=== PATIENT | male | born 1940 | race Caucasian/White ===

== ENCOUNTER 2017-11-15 09:50 | Emergency (ER) | payer OTHER ==
[2017-11-15] MEDS ORDERED: LIDOCAINE 1% 20 ML MDV ONE (10:38)
--- NOTE | 2017-11-15 11:21 | EDPHYS ---
Physician Documentation [facility] Name: Kanchan Fernandez Age: 77 yrs Sex: Male : 1940 Arrival Date: 11/15/2017 Time: 09:53 Bed 24 Private MD: ED Physician Darien Lamas HPI: 11/15 10:34 This 77 yrs old Male presents to ER via Ambulatory with complaints of Groin rn Pain. 10:34 the patient presents with a swollen area of the groin. Onset: The symptoms/episode rn began/occurred 2 day(s) ago. Possible cause(s): unknown. Severity of symptoms: At their worst the symptoms were mild, in the emergency department the symptoms are unchanged. The patient has not experienced similar symptoms in the past. Reports groin swelling, left groin, has had a bump there for years, but over last 2 days increased swelling and drainage, + foul smell, on blood thinners for afib, no fever. Has never had hernia at that location, + tender. . Historical: - Home Meds: 10:09 Carbidopa-Levodopa Oral [Active]; finasteride 5 mg Oral tab once daily [Active]; Flomax ph 0.4 mg Oral 1 cap nightly [Active]; Xarelto 20 mg Oral tab once daily [Active]; - PMHx: 10:09 Atrial Fib; restless legs; Kidney stones; ph - PSHx: 10:09 lithrotripsy; Brain surgery - acoustic neuroma; Ankle surgery; ph - Immunization history:: Adult Immunizations up to date. - Social history:: Smoking status: Patient/guardian denies using tobacco. - Family history:: not pertinent. - Hospitalizations: : No recent hospitalization is reported. ROS: 10:34 Constitutional: Negative for fever, chills, and weight loss, Cardiovascular: Negative rn for chest pain, palpitations, and edema, Respiratory: Negative for shortness of breath, cough, wheezing, and pleuritic chest pain, Abdomen/GI: Negative for abdominal pain, nausea, vomiting, diarrhea, and constipation, Back: Negative for injury and pain, MS/Extremity: Negative for injury and deformity, Skin: + swelling and pain to left groin Neuro: Negative for headache, weakness, numbness, tingling, and seizure. Exam: 10:34 Constitutional: This is a well developed, well nourished patient who is awake, alert, rn and in no acute distress. Abdomen/GI: Soft, non-tender, with normal bowel sounds. No distension or tympany. No guarding or rebound. No evidence of tenderness throughout. Male : Normal genitalia, left groin near but not involving left odilon-scrotum there is approx [id number] swelling and fluctuance, with clear drainage and foul smell Vital Signs: 10:09 BP 131 / 65; Pulse 53; Resp 18; Temp 98.7; Pulse Ox 97% on R/A; Weight 106.59 kg; ph Height 5 ft. 9 in. (175.26 cm); Pain 5/10; 10:09 Body Mass Index 34.70 (106.59 kg, 175.26 cm) ph Procedures: 11:18 I \T\ D: Incision and drainage was performed for an abscess of the left groin Prepped rn with Betadine, Anesthetized with 5 ml's 1% Lidocaine. Incised with #11 blade. Drained moderate amount purulent fluid. serosanguinous fluid. bloody fluid. Loculations removed. Abscess cavity explored. Packed with iodoform gauze, Dressing: sterile 4x4 gauze, the patient tolerated the procedure well. MDM: 10:17 Patient medically screened. rn 11:18 Differential diagnosis: abscess, cellulitis. Data reviewed: vital signs, nurses notes, rn and as a result, I will discharge patient. Counseling: I had a detailed discussion with the patient and/or guardian regarding: the historical points, exam findings, and any diagnostic results supporting the discharge/admit diagnosis, the need for outpatient follow up, to return to the emergency department if symptoms worsen or persist or if there are any questions or concerns that arise at home. ED course: Bedside u/s performed, single isolated fluid filled cavity, does not communicate with anything else. + surrounding cobblestoning. 11:18 Special discussion: I discussed with the patient/guardian in detail that at this point rn there is no indication for admission to the hospital. It is understood, however, that if the symptoms persist or worsen the patient needs to return immediately for re-evaluation. Based on the history and exam findings, there is no indication for further emergent testing or inpatient evaluation. I discussed with the patient/guardian the need to see the general surgeon for further evaluation of the symptoms. 11/15 10:30 Order name: Incision \T\ Drainage Setup; Complete Time: 10:45 rn Administered Medications: 10:46 Drug: Lidocaine (1 %) 1 vials {Note: administered by Dr. Lamas.} Volume: 20 ml; Route: aj1 Infiltration; 12:02 Drug: Clindamycin 300 mg Route: PO; aj1 12:05 Follow up: Response: No adverse reaction aj 12:03 Drug: Bactrim (160 mg-800 mg (DS) 1 tablet Route: PO; aj1 12:05 Follow up: Response: No adverse reaction aj Disposition: 11/15/17 11:20 Discharged to Home. Impression: Cutaneous abscess of groin. - Condition is Stable. - Discharge Instructions: Abscess, Incision and Drainage. - Prescriptions for Clindamycin HCl 300 mg Oral Capsule - take 1 capsule by ORAL route every 6 hours for 10 days; 40 capsule. Tylenol- Codeine #3 300-30 mg Oral Tablet - take 1 tablet by ORAL route every 6 hours As needed; 20 tablet. Bactrim DS 800- 160 mg Oral Tablet - take 1 tablet by ORAL route every 12 hours for 10 days; 20 tablet. - Medication Reconciliation Form, Thank You Letter, Antibiotic Education, Prescription Opioid Use form. - Follow up: Brennan Flores MD; When: 2 - 3 days; Reason: Wound Recheck, Recheck today's complaints, Re-evaluation by your physician. - Problem is new. - Symptoms have improved. Signatures: Mey Stinson RN RN aj1 Darien Lamas MD MD rn Hall, Patricia, RN RN ph Corrections: (The following items were deleted from the chart) 12:10 11:20 11/15/2017 11:20 Discharged to Home. Impression: Cutaneous abscess of groin. aj1 Condition is Stable. Forms are Medication Reconciliation Form, Thank You Letter, Antibiotic Education, Prescription Opioid Use. Follow up: Brennan Flores; When: 2 - 3 days; Reason: Wound Recheck, Recheck today's complaints, Re-evaluation by your physician. Problem is new. Symptoms have improved. rn
--- NOTE | 2017-11-15 11:21 | ER ---
Nurse's Notes [facility] Name: Kanchan Fernandez Age: 77 yrs Sex: Male : 1940 Arrival Date: 11/15/2017 Time: 09:53 Bed 24 Private MD: Diagnosis: Cutaneous abscess of groin Presentation: 11/15 10:10 Presenting complaint: Presenting complaint: Patient states: " I've had a bump on my ph groin for a while now and it's never bothered but this weekend it got inflamed and started draining a clear, and reddish liquid." Denies N/V/D or fever, reports pain in L groin. Transition of care: patient was not received from another setting of care. Onset of symptoms was November 15, 2017. Initial Sepsis Screen: Does the patient meet any 2 criteria? No. Patient's initial sepsis screen is negative. Does the patient have a suspected source of infection? No. Patient's initial sepsis screen is negative. Care prior to arrival: None. 10:10 Method Of Arrival: Ambulatory ph 10:10 Acuity: BALTAZAR 4 ph Historical: - Home Meds: 10:09 Carbidopa-Levodopa Oral [Active]; finasteride 5 mg Oral tab once daily [Active]; Flomax ph 0.4 mg Oral 1 cap nightly [Active]; Xarelto 20 mg Oral tab once daily [Active]; - PMHx: 10:09 Atrial Fib; restless legs; Kidney stones; ph - PSHx: 10:09 lithrotripsy; Brain surgery - acoustic neuroma; Ankle surgery; ph - Immunization history:: Adult Immunizations up to date. - Social history:: Smoking status: Patient/guardian denies using tobacco. - Family history:: not pertinent. - Hospitalizations: : No recent hospitalization is reported. Screenin:29 Abuse screen: Denies threats or abuse. Denies injuries from another. Nutritional aj1 screening: No deficits noted. Tuberculosis screening: No symptoms or risk factors identified. 12:04 Fall Risk None identified. aj1 Assessment: 10:29 General: Appears in no apparent distress. uncomfortable, Behavior is calm, cooperative, aj1 appropriate for age. Pain: Complains of pain in groin Pain does not radiate. Neuro: Level of Consciousness is awake, alert, obeys commands, Oriented to person, place, time, situation, Speech is normal, Facial symmetry appears normal. Cardiovascular: Patient's skin is warm and dry. Respiratory: Airway is patent Respiratory effort is even, unlabored, Respiratory pattern is regular, symmetrical. GI: No signs and/or symptoms were reported involving the gastrointestinal system. : No signs and/or symptoms were reported regarding the genitourinary system. EENT: No signs and/or symptoms were reported regarding the EENT system. Derm: Abscess located on groin has purulent drainage, has foul odor, is raised. Musculoskeletal: No signs and/or symptoms reported regarding the musculoskeletal system. Circulation, motion, and sensation intact. 10:31 Reassessment: Dr. Lamas at bedside performing ultrasound of abscess. aj1 11:30 Reassessment: Patient appears in no apparent distress at this time. No changes from aj1 previously documented assessment. Patient and/or family updated on plan of care and expected duration. Pain level reassessed. Patient is alert, oriented x 3, equal unlabored respirations, skin warm/dry/pink. Vital Signs: 10:09 BP 131 / 65; Pulse 53; Resp 18; Temp 98.7; Pulse Ox 97% on R/A; Weight 106.59 kg; ph Height 5 ft. 9 in. (175.26 cm); Pain 5/10; 10:09 Body Mass Index 34.70 (106.59 kg, 175.26 cm) ph ED Course: 09:53 Patient arrived in ED. sb2 10:12 Triage completed. ph 10:17 Darien Lamas MD is Attending Physician. rn 10:29 Mey Stinson RN is Primary Nurse. aj1 10:29 Patient has correct armband on for positive identification. aj1 10:29 No provider procedures requiring assistance completed. aj1 10:30 Arm band placed on. aj1 11:15 Assist provider with I \\T\\ D: of an abscess on left groin Set up I\\T\\D tray. Performed by aj 1 Darien Lamas MD Wound packed. Dressing with 4X4s, Patient tolerated well. 11:20 Brennan Flores MD is Referral Physician. rn 12:04 Patient did not have IV access during this emergency room visit. aj1 Administered Medications: 10:46 Drug: Lidocaine (1 %) 1 vials {Note: administered by Dr. Lamas.} Volume: 20 ml; Route: aj1 Infiltration; 12:02 Drug: Clindamycin 300 mg Route: PO; aj1 12:05 Follow up: Response: No adverse reaction aj1 12:03 Drug: Bactrim (160 mg-800 mg (DS) 1 tablet Route: PO; aj1 12:05 Follow up: Response: No adverse reaction aj1 Outcome: 11:20 Discharge ordered by . rn 12:04 Discharged to home ambulatory. aj1 12:04 Condition: good 12:04 Discharge instructions given to patient, Instructed on discharge instructions, follow up and referral plans. no drinking with medication, no driving heavy equipment, medication usage, wound care, Demonstrated understanding of instructions, follow-up care, medications, wound care, Prescriptions given X 3. 12:10 Patient left the ED. aj1 Signatures: Mey Stinson RN RN aj1 Darien Lamas MD MD rn Hall, Patricia, RN RN ph Billeau, Sheri sb2
[2017-11-15] MEDS ORDERED: SMZ./TMP. 800/160 MG TABLET ONE (11:45)
[2017-11-15] MEDS ORDERED: CLINDAMYCIN HCL 150 MG CAP ONE (11:45)
== END 2017-11-15 12:10 | disposition home or self-care (01) ==
LOC: ER 09:50
PROC: 0J9C0ZZ Drainage of Pelvic Region Subcutaneous Tissue and Fascia, Open Approach (ICD-10-PCS; principal; 2017-11-15)
DX: L02.214 Cutaneous abscess of groin (principal); I48.91 Unspecified atrial fibrillation; Z79.01 Long term (current) use of anticoagulants
CPT/HCPCS: 99283

== ENCOUNTER 2017-11-21 08:08 | Day surgery (SDC) | payer OTHER ==
[2017-11-18 12:28] LABS: Absolute Lymphocytes (CBC) 14.8 K/uL (0.7-4.9); Absolute Monocytes 0.6 K/uL (0.1-1.3); Absolute Neutrophil 3.7 K/uL (1.8-8.0); Basophils % 0.2 % (0-1.3); Eosinophils % 0.5 % (0-4.4); Hematocrit 43.8 % (39.6-49.0); Lymphocytes % 76.6 % (15.3-44.8); MCH 30.2 pg (27.0-35.0); MCV 92.1 fL (80-100); MPV 9.8 fL (7.6-11.3); Monocytes % 3.3 % (3.3-12.3); RBC Red Blood Cell Count 4.75 M/uL (4.33-5.43)
[2017-11-18 12:37] LABS: Potassium 4.7 mEq/L (3.6-5.0)
[2017-11-18 13:26] LABS: Blood Morphology Comment NOT SEEN (NOT SEEN); Platelet Estimate DECR
[2017-11-18 13:28] LABS: Smudge Cells 27
--- NOTE | 2017-11-18 13:41 | RAD REPORT ---
EXAM DESCRIPTION: RAD - Chest Pa And Lat (2 Views) - 11/18/2017 1:35 pm CLINICAL HISTORY: Abscess COMPARISON: None. FINDINGS: The lungs are clear. The heart is mildly enlarged. No displaced fractures. IMPRESSION: Mild cardiomegaly.
--- NOTE | 2017-11-18 15:38 | EKG ---
Test Date: 2017-11-18 Test Time: 12:20:50 Digital Sales Assistant: DARBY MEASUREMENT RESULTS: Intervals: Rate: 43 TN: QRSD: 94 QT: 476 QTc: 402 Horace: P: TN: QRS: 84 T: 94 INTERPRETIVE STATEMENTS: Atrial fibrillation with slow ventricular response ST abnormality, possible digitalis effect Abnormal ECG Compared to ECG 05/24/2017 11:03:13 no significant change from previous ECG Electronically Signed On 11-18-17 15:37:27 CDT by Juan Stallworth
[2017-11-21] MEDS ORDERED: Ringers Lactate 1,000 ML IV ONE (08:37)
[2017-11-21] MEDS ORDERED: CEFAZOLIN/SWI 1gm 1 GM/10 ML SYR ONE (08:38)
[2017-11-21] MEDS ORDERED: BUPIVACAINE 0.5% PF 10 ML VIAL ONE (09:20)
[2017-11-21] MEDS ORDERED: LIDOCAINE 2% MPF 5 ML VIAL ONE (09:23)
[2017-11-21] MEDS ORDERED: PROPOFOL 200 MG/20 ML VIAL IV ONE (09:24)
[2017-11-21] MEDS ORDERED: FENTANYL CITR 100 MCG/2 ML ONE (09:24)
[2017-11-21] MEDS ORDERED: GLYCOPYRROLATE 0.2 MG/ML SYR ONE ×2 (09:44→10:05)
--- NOTE | 2017-11-21 10:06 | P.BOP ---
Preoperative diagnosis: left inguinal complex abscess Postoperative diagnosis: same Primary procedure: Incision and drainage of left inguinal complex abscess [id number] Estimated blood loss: <10cc Specimen: devitalized tissue and culture Findings: left inguinal/groin complex abscess Anesthesia: General Complications: None Transferred to: Recovery Room Condition: Good
[2017-11-21] MEDS ORDERED: CODEINE 30MG/APAP 300MG TAB ONE (11:21)
--- NOTE | 2017-11-21 21:13 | OP ---
Date of Procedure: 11/21/2017 Surgeon: Brennan Flores MD Preoperative Diagnosis: Left inguinal complex abscess. Postoperative Diagnosis: Left inguinal complex abscess. Procedure: Incision and drainage of complex abscess of left inguinal area, 5 x 3 x 3 cm. Estimated Blood Loss: Less than 10 cc. Specimen: Devitalized tissue and culture. Findings: Left inguinal groin complex abscess. Anesthesia: General plus local. Indications: This is a case of a 77-year-old patient with above diagnosis with drainage coming from a complex abscess in the left groin inguinal region. The benefits, alternatives, and risk of incisio n and drainage with debridement fully explained to the patient, which include, but are not limited to infection, bleeding, damage to adjacent structures, anesthesia complication, recurrence, NJ, and grady n . He also understands this may not relieve any symptoms. He might need more than one surgica l intervention. He will require wound care. He signed a consent. Description Of Procedure: The patient was brought to the operating room, placed in supine position. Anesthesia was done without complication. Left groin area was prepped and draped in a sterile fashi on. Local anesthesia was applied followed by sharp incision to include the abscess and necrotic tiss ue present. This led into an abscess cavity above 5 x 3 x 3 cm. Cultures were obtained. The area w as profusely irrigated. Hemostasis was obtained. We did debridement of the devitalized tissue subcu taneously and area was irrigated and packed with 1 inch iodoform. Sponge count and instrument counts were correct. The patient tolerated the procedure well. The patient was sent to recovery in stable condi tion. BONY/LUCIEN Voice ID: [id number] Report ID: [id number]
--- NOTE | 2017-11-21 21:13 | DS ---
Date of Discharge: 11/21/2017 Diagnosis: Complex left inguinal abscess. Procedure: Incision and drainage with debridement of left complex abscess. Disposition: Home. Activity: As tolerated. No heavy lifting. Followup: Follow up in my office in 1 week. Call for appointment [phone]. Keep the area dry for 2 4 hours and then wet-to-dry dressing. May use Iodoform or may use a gauze with saline daily. The marisol avery was offered [facility], although he think his family can do it. Continue with antibiot ics from home. BONY/LUCIEN Voice ID: [id number] Report ID: [id number]
== END 2017-11-21 12:20 | disposition home health service (06) ==
LOC: OR 08:08
PROVIDERS: ATTEND Surgery
PROC: 0J9C0ZZ Drainage of Pelvic Region Subcutaneous Tissue and Fascia, Open Approach (ICD-10-PCS; principal; 2017-11-21 09:30)
DX: L02.214 Cutaneous abscess of groin (principal); G47.33 Obstructive sleep apnea (adult) (pediatric); Z80.6 Family history of leukemia; Z80.0 Family history of malignant neoplasm of digestive organs; Z82.49 Family history of ischemic heart disease and other diseases of the circulatory system
CPT/HCPCS: 10061; 36415; 71046; 80048; 85025; 87070; 87075; 87205; 88304; 93005; J0690; J3010; 88302

== ENCOUNTER 2018-12-09 09:56 | Emergency (ER) | payer OTHER ==
--- NOTE | 2018-12-09 10:17 | ER ---
Nurse's Notes [facility] Name: Kanchan Fernandez Age: 78 yrs Sex: Male : 1940 Arrival Date: 12/09/2018 Time: 10:00 Bed 15 Private MD: Vlad Redman Diagnosis: Cellulitis of left upper limb Presentation: 12/09 10:08 Presenting complaint: Patient states: redness and rash to L AC area that began months ss ago, but became irritated and reddened over the last 5-6 days after applying tea tree oil. Denies fever. Transition of care: patient was not received from another setting of care. Onset: The symptoms/episode began/occurred 3 month(s) ago. Anaphylaxis evaluation, no signs or symptoms of anaphylaxis were noted. Onset of symptoms is unknown. Risk Assessment: Do you want to hurt yourself or someone else? Patient reports no desire to harm self or others. Initial Sepsis Screen: Does the patient meet any 2 criteria? No. Patient's initial sepsis screen is negative. Does the patient have a suspected source of infection? Yes: Skin breakdown/wound. Care prior to arrival: None. 10:08 Method Of Arrival: Ambulatory ss 10:08 Acuity: BALTAZAR 5 ss Historical: - Allergies: 10:11 No Known Allergies; ss - Home Meds: 10:11 Carbidopa-Levodopa Oral [Active]; finasteride 5 mg Oral tab once daily [Active]; Flomax ss 0.4 mg Oral 1 cap nightly [Active]; Xarelto 20 mg Oral tab once daily [Active]; - PMHx: 10:11 Atrial Fib; Kidney stones; restless legs; ss - PSHx: 10:11 lithrotripsy; Brain surgery - acoustic neuroma; Ankle surgery; ss - Immunization history:: Adult Immunizations up to date. - Social history:: Smoking status: Patient/guardian denies using tobacco. - Ebola Screening: : Patient denies exposure to infectious person Patient denies travel to an Ebola-affected area in the 21 days before illness onset. Screenin:12 Abuse screen: Denies threats or abuse. Denies injuries from another. Nutritional ss screening: No deficits noted. Tuberculosis screening: Never had TB. Fall Risk None identified. Assessment: 10:12 General: Appears in no apparent distress. comfortable, Behavior is calm, cooperative, ss Denies fever, feeling ill, fatigue, chills. Pain: Denies pain. Neuro: Level of Consciousness is awake, alert, obeys commands. Cardiovascular: Pulses are palpable in right radial artery and left radial artery. Respiratory: Airway is patent Respiratory effort is even, unlabored, Respiratory pattern is regular, symmetrical. GI: Patient currently denies abdominal pain, diarrhea, nausea, vomiting. EENT: Nares are clear. Derm: Skin is pink, warm \T\ dry. normal. Derm: Rash noted that is itchy, red, vesicular, on left antecubital area. Musculoskeletal: Circulation, motion, and sensation intact. Range of motion: intact in all extremities, Swelling absent. Vital Signs: 10:11 BP 139 / 73; Pulse 63; Resp 17; Temp 98.0(TE); Pulse Ox 98% on R/A; Weight 111.13 kg; ss Height 5 ft. 9 in. (175.26 cm); Pain 0/10; 10:11 Body Mass Index 36.18 (111.13 kg, 175.26 cm) ss ED Course: 10:00 Patient arrived in ED. dp 10:01 Vlad Redman MD is Private Physician. dp 10:03 [facility] Con[facility]. kb 10:03 Darien Lamas MD is Attending Physician. kb 10:08 Carmen Blanco, REYNA is Primary Nurse. ss 10:10 Triage completed. ss 10:11 Arm band placed on right wrist. ss 10:12 Patient has correct armband on for positive identification. Bed in low position. Call ss light in reach. 10:14 No provider procedures requiring assistance completed. Patient did not have IV access ss during this emergency room visit. Administered Medications: 10:18 Drug: Bactrim (160 mg-800 mg (DS) 1 tablet Route: PO; ss 10:26 Follow up: Response: No adverse reaction; Medication administered at discharge. ss 10:19 Drug: KeFLEX 500 mg Route: PO; ss 10:26 Follow up: Response: No adverse reaction; Medication administered at discharge. ss Outcome: 10:16 Discharge ordered by . kb 10:26 Discharged to home ambulatory. ss 10:26 Condition: good 10:26 Discharge instructions given to patient, Instructed on discharge instructions, follow up and referral plans. medication usage, Demonstrated understanding of instructions, follow-up care, medications, wound care, Prescriptions given X 2. 10:27 Patient left the ED. Signatures: Orly Conner FNP-C FNP-Carmen Horton, REYNA RN ss Thomas Ag
--- NOTE | 2018-12-09 10:17 | EDPHYS ---
Physician Documentation [facility] Name: Kanchan Fernandez Age: 78 yrs Sex: Male : 1940 Arrival Date: 12/09/2018 Time: 10:00 Bed 15 Private MD: Vlad Redman ED Physician Darien Lamas HPI: 12/09 10:12 This 78 yrs old Male presents to ER via Ambulatory with complaints of Rash, kb Itching. 10:13 The patient presents with cellulitis of the left arm. Description: draining, kb erythematous, hot, swollen. Onset: The symptoms/episode began/occurred 6 day(s) ago. Possible cause(s): unknown. Associated signs and symptoms: Pertinent positives: erythema, swelling, Pertinent negatives: discharge, drainage, foreign body sensation, fever, headache, nausea, shortness of breath, vomiting. Modifying factors: the symptoms are alleviated by nothing, the symptoms are aggravated by nothing. Severity of symptoms: At their worst the symptoms were moderate, in the emergency department the symptoms are unchanged. The patient has not experienced similar symptoms in the past. The patient has not recently seen a physician. Historical: - Allergies: 10:11 No Known Allergies; ss - Home Meds: 10:11 Carbidopa-Levodopa Oral [Active]; finasteride 5 mg Oral tab once daily [Active]; Flomax ss 0.4 mg Oral 1 cap nightly [Active]; Xarelto 20 mg Oral tab once daily [Active]; - PMHx: 10:11 Atrial Fib; Kidney stones; restless legs; ss - PSHx: 10:11 lithrotripsy; Brain surgery - acoustic neuroma; Ankle surgery; ss - Immunization history:: Adult Immunizations up to date. - Social history:: Smoking status: Patient/guardian denies using tobacco. - Ebola Screening: : Patient denies exposure to infectious person Patient denies travel to an Ebola-affected area in the 21 days before illness onset. ROS: 10:12 Constitutional: Negative for fever, chills, and weight loss, Cardiovascular: Negative kb for chest pain, palpitations, and edema, Respiratory: Negative for shortness of breath, cough, wheezing, and pleuritic chest pain, Abdomen/GI: Negative for abdominal pain, nausea, vomiting, diarrhea, and constipation, MS/Extremity: Negative for injury and deformity, Neuro: Negative for headache, weakness, numbness, tingling, and seizure. 10:12 Skin: Positive for cellulitis, erythema, of the left arm. Exam: 10:11 Constitutional: This is a well developed, well nourished patient who is awake, alert, kb and in no acute distress. Head/Face: Normocephalic, atraumatic. Chest/axilla: Normal chest wall appearance and motion. Nontender with no deformity. No lesions are appreciated. Cardiovascular: Regular rate and rhythm with a normal S1 and S2. No gallops, murmurs, or rubs. Normal PMI, no JVD. No pulse deficits. Respiratory: Lungs have equal breath sounds bilaterally, clear to auscultation and percussion. No rales, rhonchi or wheezes noted. No increased work of breathing, no retractions or nasal flaring. Abdomen/GI: Soft, non-tender, with normal bowel sounds. No distension or tympany. No guarding or rebound. No evidence of tenderness throughout. MS/ Extremity: Pulses equal, no cyanosis. Neurovascular intact. Full, normal range of motion. Neuro: Awake and alert, GCS 15, oriented to person, place, time, and situation. Cranial nerves II-XII grossly intact. Motor strength 5/5 in all extremities. Sensory grossly intact. Cerebellar exam normal. Normal gait. 10:11 Skin: cellulitis, that is moderate, on the left arm. Vital Signs: 10:11 BP 139 / 73; Pulse 63; Resp 17; Temp 98.0(TE); Pulse Ox 98% on R/A; Weight 111.13 kg; ss Height 5 ft. 9 in. (175.26 cm); Pain 0/10; 10:11 Body Mass Index 36.18 (111.13 kg, 175.26 cm) ss MDM: 10:03 Patient medically screened. kb 10:11 Data reviewed: vital signs, nurses notes. Data interpreted: Pulse oximetry: on room air kb is 98 %. Interpretation: normal. Counseling: I had a detailed discussion with the patient and/or guardian regarding: the historical points, exam findings, and any diagnostic results supporting the discharge/admit diagnosis, the need for outpatient follow up, a family practitioner, to return to the emergency department if symptoms worsen or persist or if there are any questions or concerns that arise at home. Administered Medications: 10:18 Drug: Bactrim (160 mg-800 mg (DS) 1 tablet Route: PO; ss 10:26 Follow up: Response: No adverse reaction; Medication administered at discharge. ss 10:19 Drug: KeFLEX 500 mg Route: PO; ss 10:26 Follow up: Response: No adverse reaction; Medication administered at discharge. ss Disposition: 11:41 Co-signature as Attending Physician, Darien Lamas MD. rn Disposition: 12/09/18 10:16 Discharged to Home. Impression: Cellulitis of left upper limb. - Condition is Stable. - Discharge Instructions: Cellulitis, Adult, [id number]. - Prescriptions for Keflex 500 mg Oral Capsule - take 1 capsule by ORAL route every 8 hours for 7 days; 21 capsule. Bactrim DS 800- 160 mg Oral Tablet - take 1 tablet by ORAL route every 12 hours for 7 days; 14 tablet. - Medication Reconciliation Form, Thank You Letter, Antibiotic Education, Prescription Opioid Use form. - Follow up: Emergency Department; When: As needed; Reason: Worsening of condition. Follow up: Private Physician; When: 2 - 3 days; Reason: Recheck today's complaints, Continuance of care, Re-evaluation by your physician. Signatures: Orly Conner, OVEN ATTENDANT-C OVEN ATTENDANT-Ckb Darien Lamas MD MD rn [facility] RN Corrections: (The following items were deleted from the chart) 10:27 10:16 12/09/2018 10:16 Discharged to Home. Impression: Cellulitis of left upper limb. ss Condition is Stable. Forms are Medication Reconciliation Form, Thank You Letter, Antibiotic Education, Prescription Opioid Use. Follow up: Emergency Department; When: As needed; Reason: Worsening of condition. Follow up: Private Physician; When: 2 - 3 days; Reason: Recheck today's complaints, Continuance of care, Re-evaluation by your physician. kb
[2018-12-09] MEDS ORDERED: SMZ./TMP. 800/160 MG TABLET ONE (10:31)
[2018-12-09] MEDS ORDERED: CEPHALEXIN 250 MG CAP ONE (10:31)
== END 2018-12-09 10:27 | disposition home or self-care (01) ==
LOC: ER 09:56
DX: L03.114 Cellulitis of left upper limb (principal); I48.91 Unspecified atrial fibrillation
CPT/HCPCS: 99283

== ENCOUNTER 2019-08-28 08:40 | Inpatient (IN) | payer OTHER ==
--- OUTSIDE RECORDS SUMMARY | 2019-08-28 08:55 | XMS REPORT | Summary of Care ---
:1940 Author Organization [facility] [place] [address] Care Team Providers Name Role Phone Unavailable Primary Care Provider Unavailable Reason for Visit Reason Comments Elevated PSA Encounter Details Date Type Department Care Team Description 08/10/2019 Office Visit [facility] Ayush Sung MD Elevated PSA Medicine Urology [address] [place] [address] [address]LO[address], [address], [place] [address] [place] [address] Allergies No Known Allergiesdocumented as of this encounter (statuses as of 08/13/2019) Medications Medication Sig Dispensed Refills Start Date End Date Status finasteride (PROSCAR) Take 5 mg by 0 Active 5 MG tablet mouth daily. Rivaroxaban (XARELTO) Take by mouth. 0 Active 20 MG TABS Tamsulosin HCl 0.4 MG TAKE ONE CAPSULE 30 Cap 1 03/09/2017 Active CAPS BY MOUTH AT BEDTIME amoxicillin-clavulana Take 1 Tab by 20 Tab 0 08/13/2019 08/23/2019 Active te (AUGMENTIN) mouth two times 875-125 MG per tablet daily for 10 days. documented as of this encounter (statuses as of 08/13/2019) Active Problems Problem Noted Date Elevated prostate specific antigen (PSA) 07/10/2012 documented as of this encounter (statuses as of 08/13/2019) Social History Tobacco Use Types Packs/Day Years Used Date Never Smoker Smokeless Tobacco: Never Used Alcohol Use Drinks/Week oz/Week Comments No Sex Assigned at Date Recorded Not on file Job Start Date Occupation Industry Not on file Not on file Not on file Travel History Travel Start Travel End No recent travel history available. documented as of this encounter Last Filed Vital Signs Not on filedocumented in this encounter Progress Notes Kathie Ramirez CMA - 08/10/2019 8:31 AM LUMBER TRIPPER HPI Review of Systems Constitutional: Negative. HENT: Positive for congestion and hearing loss. Eyes: Negative. Respiratory: Positive for shortness of breath, wheezing and stridor. Cardiovascular: Positive for leg swelling. Gastrointestinal: Negative. Endocrine: Negative. Genitourinary: Positive for frequency and urgency. Musculoskeletal: Positive for neck pain and neck stiffness. Skin: Negative. Allergic/Immunologic: Negative. Neurological: Positive for numbness. Hematological: Bruises/bleeds easily. Psychiatric/Behavioral: Negative. 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 Nocturia x 0 - 1. Some urgency. PMH: Asbestosis Atrial fibrillation - on Xarelto H/O acoustic neuroma ALL: none MEDS: Epic SURG: Acoustic neuroma Ureteroscopy - for stones Vasectomy Rt ankle FH: No IA/BR/OV cancers HABITS: No tobacco, mild ETOH ( 6 - 7 drinks / week ) ROS: Active, +/- SOB, denies chest pain EXAM: 5'9", 260 lbs WD Some bronchospasm Rectal - > 100 G prostate, feels like BPH IMP: H/O focal GL 3+3 PRCA Very large BPH Elevated PSA P: Labs, decide Addendum: PSA - 12.4, 11% free, PHI - 59 ( > 55% risk ) Cr - 0.76 T - 262 C&S - Enterococci final sensitivities - pending P: Rx Augmentin ( sent Rx through [facility] ) FU C&S & PHI in 8 weeks Called Left message on home # for him to order picker his Rx and FU with us documented in this encounter Plan of Treatment Name Type Priority Associated Diagnoses Date/Time CULTURE, Microbiology Routine Elevated prostate 08/10/2019 8:41 AM URINE/SENSITIVITY specific antigen (PSA) [employer] ON ALL Health Maintenance Due Date Last Done Comments TETANUS SHOT (ADULT) 01/28/1955 FALL SCREEN 01/28/2005 PNEUMOVAX >=65 (PPSV23) 01/28/2005 PREVNAR >=65 (PCV13) 01/28/2005 MEDICARE AWV (Initial) 12/18/2013 FLU VACCINE > 6 MONTHS 02/01/2019 documented as of this encounter Procedures Procedure Name Priority Date/Time Associated Comments Diagnosis BUN Routine 08/10/2019 8:41 AM Elevated prostate Results for this LUM[facility] TRIPPER specific antigen procedure are in (PSA) the results section. CREATININE SERUM Routine 08/10/2019 8:41 AM Elevated prostate Results for this [employer]UM[employer] TRIPPER specific antigen procedure are in (PSA) the results section. POCT URINALYSIS Routine 08/10/2019 Elevated prostate Results for this DIPSTICK specific antigen procedure are in (PSA) the results section. documented in this encounter Results CREATININE SERUM (08/10/2019 8:41 AM LUMBER TRIPPER) CREATININE 0.76 (L) 0.80 - 1.40 CPL MG/DL EGFR AA 101 >60 ML/MIN/1.73 CPL EGFR 87 >60 ML/MIN/1.73 CPL Comment: Unless Otherwise Indicated, All Testing Performed At: [facility], [address] [place] [address] Shot Tube Machine Tender: Mannie Freire M.D. CLIA Number [id number] [place]. [id number] Specimen Blood Performing Organization Address City/State/Zipcode Phone Number [address] [address] BUN (08/10/2019 8:41 AM LUMBER TRIPPER) BLOOD UREA 13 8 - 23 MG/DL CPL NITROGEN Comment: Unless Otherwise Indicated, All Testing Performed At: [facility], [address] [place] [id number] Shot Tube Machine Tender: Mannie Freire M.D. CLIA Number [id number] [facility] [place]. [id number] Specimen Blood Performing Organization Address [facility]/Zipcode Phone Number [facility] [address] [place] [address] TESTOSTERONE-TOTAL(URO DEPT) (08/10/2019) Pathologist [facility] Emergency Department TESTOSTERONE LEVEL 262 (A)Comment: 300 - 1,000 [facility] Test was repeated ng/dl to confirm abnormal value. LABORATORY FOR MALE [facility] REPRODUCTIVE RESEARCH & TESTING CLIA# [id number] [facility] DIRECTOR:TOPHER OCHOA,PH.D.,[facility] Specimen Serum Performing Organization Address [facility]/Zipcode Phone Number [facility] [address] [place], [place] [address] [phone] PHI PANEL (URO DEPT) (08/10/2019) Pathologist [facility] Emergency Department PSA 12.475 (A)Comment: 0 - 4.0 ng/mL CPL Test was repeated to confirm abnormal value. PSA, FREE 1.430 ng/mL [facility] FPSA/PSA RATIO 11 >25 % [facility] P2PSA 24 pg/mL [facility] PHI 59.1Comment: 55-97.8 [facility] PHI Score has 50.1% likelihood of prostate cancer Specimen Serum Performing Organization Address [facility] Corporation[facility] Phone Number [facility] [address] [place] [address], [facility] [phone] POCT URINALYSIS DIPSTICK (08/10/2019) Pathologist [facility] Emergency Department COLOR UA Yellow YELLOW/STRAW CLARITY UA Clear CLEAR GLUCOSE UA Negative NEGATIVE BILIRUBIN UA Negative NEGATIVE KETONES UA Negative NEGATIVE SPECIFIC GRAVITY UA 1.010 (A) 1.005 - 1.035 BLOOD UA Hemolyzed Trace NEGATIVE PH UA 6.5 5 - 9 PROTEIN UA Negative NEGATIVE UROBILINOGEN UA 0.02 E.U/DL NORMAL MG/DL LEUKOCYTE ESTERASE UA Trace NEGATIVE NITRITE UA Negative NEGATIVE REDUCING SUBSTANCES 0 NEGATIVE URINE Specimen documented in this encounter Visit Diagnoses Diagnosis Elevated prostate specific antigen (PSA) - Primary documented in this encounter Insurance Payer Benefit Plan / Subscriber ID Effective Dates Phone Address Type Group [employer] MEDICARE PLAN PPO xxxxxxxx 2013-Present [address] Medicare - [employer] [place] [id number] documented as of this encounter
[2019-08-28 09:41] LABS: Protime INR 1.58
[2019-08-28 09:48] LABS: Absolute Lymphocytes (CBC) 19.9 K/uL (0.7-4.9); Basophils % 0.2 % (0-1.3); Hematocrit 40.3 % (39.6-49.0); Lymphocytes % 78.1 % (15.3-44.8); MPV 9.4 fL (7.6-11.3); RBC Red Blood Cell Count 4.29 M/uL (4.33-5.43)
[2019-08-28 09:59] LABS: BUN Blood Urea Nitrogen 12 mg/dL (7-18); Bicarbonate 28 mmol/L (21-32); Creatine Phosphokinase 132 U/L (39-308); Glucose Level 124 mg/dL (74-106); Potassium 4.2 mmol/L (3.5-5.1); Sodium Level 140 mmol/L (136-145)
[2019-08-28] MEDS ORDERED: CLINDAMYCIN 900MG/D5W 900 MG/50 ML IVPB IV ONE (10:35)
--- NOTE | 2019-08-28 10:38 | RAD REPORT ---
EXAM DESCRIPTION: US - Extremity Venous [facility] [employer] - 08/28/2019 10:06 am CLINICAL HISTORY: Pain;Swelling COMPARISON: None. TECHNIQUE: Real-time sonographic evaluation of the right lower extremity deep venous systems was per formed. FINDINGS: Normal compressibility, flow augmentation, phasic flow and spontaneous flow are identified in the right lower extremity common femoral, superficial femoral, popliteal and posterior tibial vei ns. No intraluminal filling defects seen. IMPRESSION: No DVT in the right lower extremity.
[2019-08-28 11:13] LABS: Platelet Estimate DECR
[2019-08-28 11:14] LABS: Blood Morphology Comment NOT SEEN (NOT SEEN); Platelets, Giant FEW PRESENT
--- NOTE | 2019-08-28 11:53 | P.HP ---
Certification for Inpatient Patient admitted to: Inpatient With expected LOS: >2 Midnights Practitioner: I am a practitioner with admitting privileges, knowledge of patient current condition, hospital course, and medical plan of care. Services: Services provided to patient in accordance with Admission requirements found in Title 42 Section 412.3 of the Code of Federal Regulations Patient History Date of Service: 08/29/19 Reason for admission: Swollen and erythematous right lower extremity History of Present Illness: 79-year-old gentleman with a history of atrial fibrillation on Xarelto anticoagulation present to the ED with a complaint of painful swelling and erythema of the entire right lower extremity of about 1 week duration. Patient stated he fell and sustained an abrasive wound to the carroll of the right lower extremity. He denied any fever or chills. In the ED, patient was afebrile, WBC count is 25,000. Venous Doppler of the lower extremities negative for DVT. Patient has redness and swelling of the right leg as well as ecchymosis spreading from the knee up to the groin on the same leg. Patient is admitted for cellulitis with sepsis. Allergies No Known Allergies Allergy (Verified 11/21/17 09:13) Home Medications: Finasteride [Proscar*] 5 mg PO DAILY 12/20/15 Rivaroxaban [Xarelto] 20 mg PO DAILY 12/20/15 Tamsulosin HCl [Flomax] 0.4 mg PO DAILY 12/20/15 Gabapentin 1 tab PO BEDTIME 08/28/19 - Past Medical/Surgical History Diabetic: No -: BPH -: Atrial Fibrillation -: Asbestosis -: Ankle Surgery -: Brain Surgery- Acoustic Neuroma -: Acoustic Neuroma - Family History Brother -: Heart disease Dad -: Blood disorders Notes: leukemia Mom -: Heart disease Notes: Cardiac arrythmias, PT unsure of an acutal diagnosis Son -: Heart disease Notes: suddenly of a Myocardial Infarction - Social History Smoking Status: Never smoker Alcohol use: Yes CD- Drugs: No Caffeine use: Yes Review of Systems Other: Except as documented, all other systems reviewed and negative. Physical Examination - Physical Exam General: Alert, In no apparent distress, Oriented x3 HEENT: Mucous membr. moist/pink, Sclerae nonicteric Neck: Supple, JVD not distended, No Thyromegaly Respiratory: Clear to auscultation bilaterally, Normal air movement Cardiovascular: Normal pulses, Normal S1 S2, No murmurs, Edema (Right lower extremity.), Irregular heart rate/rhythm Gastrointestinal: Normal bowel sounds, Soft and benign, Non-distended, No tenderness Musculoskeletal: Swelling (Entire right lower extremity) Integumentary: Erythema (Erythema and ecchymosis of the right lower extremity, small abrasion wound with eschar on the carroll of the right leg.) Neurological: Normal speech, Normal strength at 5/5 x4 extr, Cranial nerves 3- 12 intact - Studies Laboratory Data (last 24 hrs) 08/28/19 09:24: PT 18.3 H, INR 1.58 08/28/19 09:24: Sodium 140, Potassium 4.2, BUN 12, Creatinine 0.72, Glucose 124 H 08/28/19 09:24: WBC 25.5 H*, Hgb 13.3 L, Hct 40.3, Plt Count 123 L Assessment and Plan - Problems (Diagnosis) (1) Lower extremity cellulitis Onset Date: 12/22/15 Current Visit: No Status: Acute (2) Chronic atrial fibrillation Current Visit: Yes Status: Acute (3) Restless leg syndrome Current Visit: Yes Status: Acute (4) Sepsis Onset Date: 12/22/15 Current Visit: No Status: Acute - Plan Admit to the medical floor Start IV Levaquin and vancomycin. Follow blood cultures obtained in the ED Sepsis protocol. Normal lactic acid. Keep right lower extremity elevated. Continues Xarelto. Atrial fibrillation is rate controlled. - Advance Directives Does patient have a Living Will: No Does patient have a Durable POA for Healthcare: Yes - Code Status/Comfort Care Code Status: Full Code
--- NOTE | 2019-08-28 12:27 | EDPHYS ---
Physician Documentation [facility] Name: Kanchan Fernandez Age: 79 yrs Sex: Male : 1940 Arrival Date: 08/28/2019 Time: 08:40 Bed 13 Private MD: ED Physician Boni Gunn HPI: 08/28 09:45 This 79 yrs old Male presents to ER via Ambulatory with complaints of Leg kdr Swelling. 09:45 The patient presents with decreased range of motion, an injury, pain, swelling, kdr tenderness. The complaints affect the right hip, lateral aspect of right thigh, lateral aspect of right calf, right calf, medial aspect of right calf and right carroll. Context: The problem was sustained at home, resulted from the patient falling, a mis-step, Fell over object in lawn onto the ground, the patient can fully bear weight, the patient is able to ambulate. Onset: The symptoms/episode began/occurred gradually, 10 day(s) ago. Modifying factors: The symptoms are alleviated by elevating leg, the symptoms are aggravated by movement. Associated signs and symptoms: The patient has no apparent associated signs or symptoms. Treatment prior to arrival includes: no previous treatment. Severity of symptoms: At their worst the symptoms were mild, moderate, just prior to arrival, in the emergency department the symptoms are unchanged. The patient has not experienced similar symptoms in the past. The patient has not recently seen a physician. The patient states that his leg has become increasingly swollen and tense since his fall. States he can not get completely comfortable at night when he sleeps due to the discomfort in his right lower extremity. Historical: - Allergies: 08:59 No Known Allergies; em - Home Meds: 08:59 Carbidopa-Levodopa Oral [Active]; finasteride 5 mg Oral tab once daily [Active]; Flomax em 0.4 mg Oral 1 cap nightly [Active]; Xarelto 20 mg Oral tab once daily [Active]; - PMHx: 08:59 Atrial Fib; Kidney stones; restless legs; em 11:01 Leukemia; em - PSHx: 08:59 lithrotripsy; Ankle surgery; Brain surgery - acoustic neuroma; em - Immunization history:: Adult Immunizations up to date. - Coronavirus screen:: The patient has NOT traveled to [place] in the past 14 days. The patient has NOT had contact with known/suspected case of Coronavirus?. - Social history:: Smoking status: Patient denies any tobacco usage or history of. - Ebola Screening: : Patient negative for fever greater than or equal to 101.5 degrees Fahrenheit, and additional compatible Ebola Virus Disease symptoms Patient denies exposure to infectious person Patient denies travel to an Ebola-affected area in the 21 days before illness onset No symptoms or risks identified at this time. ROS: 09:45 Constitutional: Negative for fever, chills, and weight loss, Eyes: Negative for injury, kdr pain, redness, and discharge, ENT: Negative for injury, pain, and discharge, Neck: Negative for injury, pain, and swelling, Cardiovascular: Negative for chest pain, palpitations, and edema, Respiratory: Negative for shortness of breath, cough, wheezing, and pleuritic chest pain, Abdomen/GI: Negative for abdominal pain, nausea, vomiting, diarrhea, and constipation, Back: Negative for injury and pain, Neuro: Negative for headache, weakness, numbness, tingling, and seizure activity. Psych: Negative for depression, anxiety, suicide ideation, homicidal ideation, and hallucinations, Allergy/Immunology: Negative for hives, rash, and allergies, Endocrine: Negative for neck swelling, polydipsia, polyuria, polyphagia, and marked weight changes, Hematologic/Lymphatic: Negative for swollen nodes, abnormal bleeding, and unusual bruising. 09:45 MS/extremity: Positive for injury or acute deformity, ecchymosis, erythema, pain, swelling, tenderness, warmth, of the lateral aspect of right calf, right calf, medial aspect of right calf and right carroll. Exam: 09:45 Constitutional: This is a well developed, well nourished patient who is awake, alert, kdr and in no acute distress. Head/Face: Normocephalic, atraumatic. Eyes: Pupils equal round and reactive to light, extra-ocular motions intact. Lids and lashes normal. Conjunctiva and sclera are non-icteric and not injected. Cornea within normal limits. Periorbital areas with no swelling, redness, or edema. Neck: Trachea midline, no thyromegaly or masses palpated, and no cervical lymphadenopathy. Supple, full range of motion without nuchal rigidity, or vertebral point tenderness. No Meningismus. Chest/axilla: Normal chest wall appearance and motion. Nontender with no deformity. No lesions are appreciated. Cardiovascular: Regular rate and rhythm with a normal S1 and S2. No gallops, murmurs, or rubs. Normal PMI, no JVD. No pulse deficits. Respiratory: Lungs have equal breath sounds bilaterally, clear to auscultation and percussion. No rales, rhonchi or wheezes noted. No increased work of breathing, no retractions or nasal flaring. Abdomen/GI: Soft, non-tender, with normal bowel sounds. No distension or tympany. No guarding or rebound. No evidence of tenderness throughout. Back: No spinal tenderness. No costovertebral tenderness. Full range of motion. Neuro: Awake and alert, GCS 15, oriented to person, place, time, and situation. Cranial nerves II-XII grossly intact. Motor strength 5/5 in all extremities. Sensory grossly intact. Cerebellar exam normal. Normal gait. Psych: Awake, alert, with orientation to person, place and time. Behavior, mood, and affect are within normal limits. 09:45 Skin: cellulitis, that is mild, that is moderate, irregular, on the lateral aspect of right calf, right calf, medial aspect of right calf and right carroll. Vital Signs: 08:59 BP 127 / 64; Pulse 63; Resp 18; Temp 97.9(O); Pulse Ox 98% on R/A; Weight 117.93 kg; em Height 5 ft. 9 in. (175.26 cm); Pain 5/10; 10:30 BP 104 / 50; Pulse 58; Resp 18; Pulse Ox 99% on R/A; em 11:46 BP 132 / 55; Pulse 58; Resp 18; Pulse Ox 99% on R/A; Pain 2/10; em 08:59 Body Mass Index 38.39 (117.93 kg, 175.26 cm) em MDM: 09:45 Data reviewed: vital signs, nurses notes, lab test result(s), radiologic studies. kdr Counseling: I had a detailed discussion with the patient and/or guardian regarding: the historical points, exam findings, and any diagnostic results supporting the discharge/admit diagnosis, lab results, radiology results. 12:26 Patient medically screened. kdr 08/28 09:11 Order name: CBC with Diff kdr 08/28 09:11 Order name: Chem 7; Complete Time: 10:22 kdr 08/28 09:11 Order name: PT-INR; Complete Time: 10:22 kdr 08/28 09:11 Order name: CPK; Complete Time: 10:22 kdr 08/28 10:48 Order name: Lactate em 08/28 10:48 Order name: Procalcitonin em 08/28 09:11 Order name: US Extremity Venous Unilateral Ltd; Complete Time: 11:12 kdr 08/28 10:48 Order name: Blood Culture Adult (2) em 08/28 11:00 Order name: Labs - recollect needed: recollect lactate; Complete Time: 11:21 08/28 11:14 Order name: Manual Differential EDMS Administered Medications: 10:50 Drug: Clindamycin 900 mg Route: IVPB; Infused Over: 30 mins; Site: right antecubital; em 11:30 Follow up: Response: No adverse reaction; IV Status: Completed infusion; IV Intake: 50mlem Disposition: 08/28/19 12:26 Hospitalization ordered by Sang Malin for Inpatient Admission. Preliminary diagnosis is Cellulitis of right lower limb. - Bed requested for Telemetry/MedSurg (Inpatient). - Status is Inpatient Admission. em - Condition is Fair. - Problem is new. - Symptoms have improved. Signatures: Dispatcher [employer] EDJanna Polanco Diana, RN RN Boni Gunn MD MD [facility] Alejandro Hill RN RN em Corrections: (The following items were deleted from the chart) 12:36 12:26 Hospitalization Ordered by Sang Malin for Inpatient Admission. Preliminary diagnosis is Cellulitis of right lower limb. Bed requested for Telemetry/MedSurg (Inpatient). Status is Inpatient Admission. Condition is Fair. Problem is new. Symptoms have improved. kdr 13:31 12:36 08/28/2019 12:26 Hospitalization Ordered by Sang Malin for Inpatient em Admission. Preliminary diagnosis is Cellulitis of right lower limb. Bed requested for Telemetry/MedSurg (Inpatient). Status is Inpatient Admission. Condition is Fair. Problem is new. Symptoms have improved. dw
--- NOTE | 2019-08-28 12:27 | ER ---
Nurse's Notes [facility] Name: Kanchan Fernandez Age: 79 yrs Sex: Male : 1940 Arrival Date: 08/28/2019 Time: 08:40 Bed 13 Private MD: Diagnosis: Cellulitis of right lower limb Presentation: 08/28 08:55 Presenting complaint: Patient states: fell about one week ago and scraped right leg, em complains of tenderness and pain in right carroll/calf, takes 20 mg xarelto for AFIB, bruising noted to right leg, thigh, and hip. Transition of care: patient was not received from another setting of care. Onset of symptoms was August 21, 2019. Risk Assessment: Do you want to hurt yourself or someone else? Patient reports no desire to harm self or others. Initial Sepsis Screen: Does the patient meet any 2 criteria? No. Patient's initial sepsis screen is negative. Does the patient have a suspected source of infection? No. Patient's initial sepsis screen is negative. Care prior to arrival: None. 08:55 Method Of Arrival: Ambulatory em 08:55 Acuity: BALTAZAR 3 em 08:55 Acuity: BALTAZAR 3 em Historical: - Allergies: 08:59 No Known Allergies; em - Home Meds: 08:59 Carbidopa-Levodopa Oral [Active]; finasteride 5 mg Oral tab once daily [Active]; Flomax em 0.4 mg Oral 1 cap nightly [Active]; Xarelto 20 mg Oral tab once daily [Active]; - PMHx: 08:59 Atrial Fib; Kidney stones; restless legs; em 11:01 Leukemia; em - PSHx: 08:59 lithrotripsy; Ankle surgery; Brain surgery - acoustic neuroma; em - Immunization history:: Adult Immunizations up to date. - Coronavirus screen:: The patient has NOT traveled to [place] in the past 14 days. The patient has NOT had contact with known/suspected case of Coronavirus?. - Social history:: Smoking status: Patient denies any tobacco usage or history of. - Ebola Screening: : Patient negative for fever greater than or equal to 101.5 degrees Fahrenheit, and additional compatible Ebola Virus Disease symptoms Patient denies exposure to infectious person Patient denies travel to an Ebola-affected area in the 21 days before illness onset No symptoms or risks identified at this time. Screenin:01 Abuse screen: Denies threats or abuse. Nutritional screening: No deficits noted. em Tuberculosis screening: No symptoms or risk factors identified. Fall Risk Fall in past 12 months (25 points). Total Lim Fall Scale indicates Low Risk Score (25-44 pts). Side Rails Up X 2 Placed close to Nursing Station 1:1 attendant Assigned to Pt. Assessment: 08:59 General: Appears in no apparent distress. comfortable, Behavior is calm, cooperative, em Denies fever. Pain: Complains of pain in right leg Pain currently is 2 out of 10 on a pain scale. at worst was 5 out of 10 on a pain scale. Pain began 1 week. Neuro: Level of Consciousness is awake, alert, obeys commands, Oriented to person, place, time, situation, Appropriate for age. Cardiovascular: Denies chest pain, Capillary refill < 3 seconds Patient's skin is warm and dry. Respiratory: Airway is patent Respiratory effort is even, unlabored, Respiratory pattern is regular, symmetrical. Derm: Skin is intact, is fragile, is thin, Skin is pink, warm \T\ dry. Bruising that is dark purple, on right leg. Musculoskeletal: Capillary refill < 3 seconds, Range of motion: intact in all extremities. 09:48 Reassessment: wheeled to US via stretcher. em 11:00 Reassessment: reports history of leukemia that daughter called and reminded the pt, em provider notified. 12:00 Reassessment: Patient appears in no apparent distress at this time. Patient and/or em family updated on plan of care and expected duration. Pain level reassessed. Patient is alert, oriented x 3, equal unlabored respirations, skin warm/dry/pink. 13:27 Reassessment: Patient appears in no apparent distress at this time. Patient and/or em family updated on plan of care and expected duration. Pain level reassessed. Patient is alert, oriented x 3, equal unlabored respirations, skin warm/dry/pink. Patient states feeling better. Vital Signs: 08:59 BP 127 / 64; Pulse 63; Resp 18; Temp 97.9(O); Pulse Ox 98% on R/A; Weight 117.93 kg; em Height 5 ft. 9 in. (175.26 cm); Pain 5/10; 10:30 BP 104 / 50; Pulse 58; Resp 18; Pulse Ox 99% on R/A; em 11:46 BP 132 / 55; Pulse 58; Resp 18; Pulse Ox 99% on R/A; Pain 2/10; em 08:59 Body Mass Index 38.39 (117.93 kg, 175.26 cm) em ED Course: 08:40 Patient arrived in ED. mr 08:51 Boni Gunn MD is Attending Physician. kdr 08:54 Alejandro Hill RN is Primary Nurse. em 08:58 Triage completed. em 08:59 Arm band placed on. em 09:01 Patient has correct armband on for positive identification. Bed in low position. Call light in reach. Pulse ox on. NIBP on. 09:30 CPK Sent. 5 09:30 PT-INR Sent. 5 09:30 Chem 7 Sent. 5 09:30 CBC with Diff Sent. 5 09:30 Initial lab(s) drawn, by az, sent to lab. Inserted saline lock: 22 gauge in right 5 antecubital area, using aseptic technique. Blood collected. 09:31 Patient has correct armband on for positive identification. Bed in low position. Call [facility] light in reach. Side rails up X 1. Pulse ox on. NIBP on. 10:22 US Extremity Venous Unilateral Ltd In Process Unspecified. EDOH 11:21 Blood Culture Adult (2) Sent. 5 12:24 Sang Malin is Hospitalizing Provider. kdr 13:26 No provider procedures requiring assistance completed. Patient admitted, IV remains in em place. Administered Medications: 10:50 Drug: Clindamycin 900 mg Route: IVPB; Infused Over: 30 mins; Site: right antecubital; em 11:30 Follow up: Response: No adverse reaction; IV Status: Completed infusion; IV Intake: 50mlem Intake: 11:30 IV: 50ml; Total: 50ml. em Outcome: 12:26 Decision to Hospitalize by Provider. kdr 13:26 Admitted to Tele accompanied by pramod, via wheelchair, room 413, with chart, Report em called to REYNA Gómez 13:26 Condition: good 13:26 Instructed on the need for admit, Demonstrated understanding of instructions. 13:31 Patient left the ED. em Signatures: Dispatcher [employer] Boni Zarate MD MD [facility] Gabe Gloria mr Alejandro Hill, RN [place] [id number]
[2019-08-28] MEDS ORDERED: ACETAMINOPHEN 500 MG TAB PO PRN (13:43)
[2019-08-28] MEDS ORDERED: MORPHINE 2 MG/ML SYR IV PRN (13:43)
[2019-08-28] MEDS ORDERED: ONDANSETRON 4 MG/2 ML VIAL IV PRN (13:43)
[2019-08-28] MEDS ORDERED: VANCOMYCIN/NS 1 gm 1 GM/250 ML BAG IVPB SCH (13:43)
[2019-08-28 13:47] VITALS: BMI 38.2
[2019-08-28] MEDS: Levofloxacin 750mg IV 750 MG/150 ML BAG IV SCH (14:31)
[2019-08-28] MEDS: VANCOMYCIN 2 GM in NA CHLORIDE 0.9% 500 ML IVPB SCH (16:06)
[2019-08-29] MEDS: VANCOMYCIN 2 GM in NA CHLORIDE 0.9% 500 ML IVPB SCH ×2 (03:00→15:25)
[2019-08-29 05:53] LABS: Absolute Lymphocytes (CBC) 18.6 K/uL (0.7-4.9); Basophils % 0.2 % (0-1.3); Hematocrit 36.9 % (39.6-49.0); Lymphocytes % 77.8 % (15.3-44.8); MPV 9.4 fL (7.6-11.3); RBC Red Blood Cell Count 3.96 M/uL (4.33-5.43)
[2019-08-29 06:16] LABS: BUN Blood Urea Nitrogen 11 mg/dL (7-18); Bicarbonate 26 mmol/L (21-32); Glucose Level 119 mg/dL (74-106); Sodium Level 142 mmol/L (136-145)
--- NOTE | 2019-08-29 12:45 | P.PN ---
Subjective Date of Service: 08/29/19 Chief Complaint: Swollen and erythematous right lower extremity Right lower extremity swelling has significantly improved but the ecchymosis on his entire right lower extremity has not improved. He also reports less pain in the right lower extremity. He has been afebrile. Physical Examination - Vital Signs Temperature: 97.5 F Blood Pressure: 128/65 Pulse: 57 Respirations: 16 Pulse Ox (%): 98 - Physical Exam General: Alert, In no apparent distress, Oriented x3 HEENT: Mucous membr. moist/pink, Sclerae nonicteric Neck: Supple, JVD not distended, No Thyromegaly Respiratory: Clear to auscultation bilaterally, Normal air movement Cardiovascular: Regular rate/rhythm, Normal S1 S2, No murmurs, Edema (Right lower extremity.) Capillary refill: <2 Seconds Gastrointestinal: Normal bowel sounds, Soft and benign, Non-distended, No tenderness Musculoskeletal: Swelling (Right lower extremity), Erythema (Right lower extremity) Integumentary: Other (Small abrasive wound with eschar on the right carroll.) Neurological: Normal speech, Normal strength at 5/5 x4 extr, Cranial nerves 3- 12 intact Assessment And Plan - Current Problems (Diagnosis) (1) Lower extremity cellulitis Onset Date: 12/22/15 Current Visit: No Status: Acute (2) Chronic atrial fibrillation Current Visit: Yes Status: Acute (3) Restless leg syndrome Current Visit: Yes Status: Acute (4) Sepsis Onset Date: 12/22/15 Current Visit: No Status: Acute - Plan Leukocytosis mostly secondary to lymphocytosis. Patient records history of leukemia which could be lymphocytic leukemia. Blood cultures: No growth to date Continue IV Levaquin and vancomycin. Follow blood cultures. Keep right lower extremity elevated. Continues Xarelto. Atrial fibrillation is rate controlled.
[2019-08-29] MEDS: Levofloxacin 750mg IV 750 MG/150 ML BAG IV SCH (13:14)
[2019-08-30 02:07] LABS: Absolute Lymphocytes (CBC) 14.7 K/uL (0.7-4.9); Basophils % 0.2 % (0-1.3); Hematocrit 37.4 % (39.6-49.0); MPV 9.4 fL (7.6-11.3); RBC Red Blood Cell Count 4.01 M/uL (4.33-5.43)
[2019-08-30 02:14] LABS: Lymphocytes % 75.9 % (15.3-44.8)
[2019-08-30 02:35] LABS: BUN Blood Urea Nitrogen 13 mg/dL (7-18); Bicarbonate 27 mmol/L (21-32); Glucose Level 139 mg/dL (74-106); Sodium Level 143 mmol/L (136-145)
[2019-08-30] MEDS: VANCOMYCIN 2 GM in NA CHLORIDE 0.9% 500 ML IVPB SCH ×2 (03:25→15:10)
--- NOTE | 2019-08-30 11:29 | P.PN ---
Subjective Date of Service: 08/30/19 Chief Complaint: Swollen and erythematous right lower extremity Subjective: No new changes, Improving Review of Systems 10-point ROS is otherwise unremarkable Physical Examination - Vital Signs Temperature: 97.2 F Blood Pressure: 139/62 Pulse: 55 Respirations: 18 Pulse Ox (%): 96 - Physical Exam General: Alert, In no apparent distress, Obese HEENT: Atraumatic, Normocephalic Neck: Supple Respiratory: Clear to auscultation bilaterally, Normal air movement Cardiovascular: Regular rate/rhythm, Normal S1 S2 Capillary refill: <2 Seconds Gastrointestinal: Soft and benign, W/out hepatosplenomegaly Musculoskeletal: No clubbing, Swelling Integumentary: Skin lesion, Tenderness/swelling, Erythema, Warmth Neurological: Normal speech, Normal strength at 5/5 x4 extr Lymphatics: No axilla or inguinal lymphadenopathy External genitalia: Deferred Rectal: Deferred - Studies Laboratory Last Values WBC 19.4 K/uL (4.3-10.9) H D 08/30/19 01:51 RBC 4.01 M/uL (4.33-5.43) L 08/30/19 01:51 Hgb 12.4 g/dL (13.6-17.9) L 08/30/19 01:51 Hct 37.4 % (39.6-49.0) L 08/30/19 01:51 MCV 93.4 fL (80-100) 08/30/19 01:51 MCH 31.0 pg (27.0-35.0) 08/30/19 01:51 MCHC 33.2 g/dL (32.0-36.0) 08/30/19 01:51 RDW 14.1 % (12.1-15.2) 08/30/19 01:51 Plt Count 123 K/uL (152-406) L 08/30/19 01:51 MPV 9.4 fL (7.6-11.3) 08/30/19 01:51 Neutrophils % 19.4 % (41.7-73.7) L 08/30/19 01:51 Lymphocytes % 75.9 % (15.3-44.8) H 08/30/19 01:51 Monocytes % 3.6 % (3.3-12.3) 08/30/19 01:51 Eosinophils % 0.9 % (0-4.4) 08/30/19 01:51 Basophils % 0.2 % (0-1.3) 08/30/19 01:51 Absolute Neutrophils 3.8 K/uL (1.8-8.0) 08/30/19 01:51 Segmented Neutrophils 17 % (40-80) L 08/28/19 09:24 Absolute Lymphocytes 14.7 K/uL (0.7-4.9) H 08/30/19 01:51 Lymphocytes 80 % (15-42) H 08/28/19 09:24 Monocytes 1 % (0-10) 08/28/19 09:24 Absolute Monocytes 0.7 K/uL (0.1-1.3) 08/30/19 01:51 Absolute Eosinophils 0.2 K/uL (0-0.5) 08/30/19 01:51 Absolute Basophils 0.0 K/uL (0-0.5) 08/30/19 01:51 Diff Path Review Yes 08/28/19 09:24 Atypical Lymphocytes 2 08/28/19 09:24 Giant Platelets Few present 08/28/19 09:24 Morphology Comment Not seen (NOT SEEN) 08/28/19 09:24 PT 18.3 SECONDS (9.5-12.5) H 08/28/19 09:24 INR 1.58 08/28/19 09:24 Sodium 143 mmol/L (136-145) 08/30/19 01:51 Potassium 4.0 mmol/L (3.5-5.1) 08/30/19 01:51 Chloride 109 mmol/L (98-107) H 08/30/19 01:51 Carbon Dioxide 27 mmol/L (21-32) 08/30/19 01:51 BUN 13 mg/dL (7-18) 08/30/19 01:51 Creatinine 0.81 mg/dL (0.55-1.3) 08/30/19 01:51 Estimated GFR > 90 mL/min (=/>90) 08/30/19 01:51 Glucose 139 mg/dL (74-106) H 08/30/19 01:51 Lactic Acid 1.2 mmol/L (0.4-2.0) 08/28/19 11:20 Calcium 8.0 mg/dL (8.5-10.1) L 08/30/19 01:51 Creatine Kinase 132 U/L (39-308) 08/28/19 09:24 Procalcitonin < 0.05 ng/mL (<0.50) 08/28/19 10:30 Vancomycin Trough 12.8 ug/mL (5.0-20.0) 08/30/19 01:51 Assessment & Plan - Problems (Diagnosis) (1) H/O chronic lymphocytic leukemia Current Visit: Yes Status: Acute (2) Cellulitis Current Visit: No Status: Acute (3) Lower extremity cellulitis Onset Date: 12/22/15 Current Visit: No Status: Acute Plan: Leukocytosis mostly secondary to lymphocytosis. Patient records history of leukemia which could be lymphocytic leukemia. Blood cultures: No growth to date Continue IV Levaquin and vancomycin. Follow blood cultures. Keep right lower extremity elevated. Continues Xarelto. Atrial fibrillation is rate controlled. Will consult ID As he has a previous history of Xanthomonas Maltiophilia Possible Dc home if cleared by ID Time Spent Managing Pts Care (In Minutes): 42
[2019-08-30] MEDS: Levofloxacin 750mg IV 750 MG/150 ML BAG IV SCH (13:30)
[2019-08-31] MEDS: VANCOMYCIN 2 GM in NA CHLORIDE 0.9% 500 ML IVPB SCH ×2 (02:21→15:25)
[2019-08-31 06:53] LABS: Absolute Lymphocytes (CBC) 19.2 K/uL (0.7-4.9); Basophils % 0.2 % (0-1.3); Hematocrit 37.1 % (39.6-49.0); Lymphocytes % 76.9 % (15.3-44.8); MPV 9.3 fL (7.6-11.3); RBC Red Blood Cell Count 3.97 M/uL (4.33-5.43)
[2019-08-31 07:14] LABS: BUN Blood Urea Nitrogen 9 mg/dL (7-18); Bicarbonate 27 mmol/L (21-32); Glucose Level 119 mg/dL (74-106); Potassium 3.9 mmol/L (3.5-5.1); Sodium Level 142 mmol/L (136-145)
[2019-08-31 09:43] LABS: Blood Morphology Comment NOT SEEN (NOT SEEN); Platelet Estimate ADEQ; Smudge Cells 20
--- NOTE | 2019-08-31 11:44 | P.PN ---
Subjective Date of Service: 08/31/19 Chief Complaint: Swollen and erythematous right lower extremity Review of Systems 10-point ROS is otherwise unremarkable Physical Examination - Vital Signs Temperature: 97.1 F Blood Pressure: 149/72 Pulse: 63 Respirations: 16 Pulse Ox (%): 98 - Physical Exam General: Alert, In no apparent distress HEENT: Atraumatic, Normocephalic Neck: Supple Respiratory: Clear to auscultation bilaterally Cardiovascular: No edema, Regular rate/rhythm Capillary refill: <2 Seconds Gastrointestinal: Normal bowel sounds, Soft and benign Musculoskeletal: No clubbing, No swelling Integumentary: Rash(es), Skin lesion, Tenderness/swelling, Erythema, Cyanosis Neurological: Normal speech, Normal strength at 5/5 x4 extr Lymphatics: No axilla or inguinal lymphadenopathy External genitalia: Deferred Rectal: Deferred Assessment & Plan - Problems (Diagnosis) (1) H/O chronic lymphocytic leukemia Current Visit: Yes Status: Acute (2) Cellulitis Current Visit: No Status: Acute (3) Lower extremity cellulitis Onset Date: 12/22/15 Current Visit: No Status: Acute Plan: Leukocytosis mostly secondary to lymphocytosis. Patient records history of leukemia which could be lymphocytic leukemia. Blood cultures: No growth to date Continue IV Levaquin and vancomycin. Follow blood cultures. Keep right lower extremity elevated. Continues Xarelto. Atrial fibrillation is rate controlled. Will consult ID As he has a previous history of Xanthomonas Maltiophilia Possible Dc home if cleared by ID Time Spent Managing Pts Care (In Minutes): 42
[2019-08-31] MEDS: Levofloxacin 750mg IV 750 MG/150 ML BAG IV SCH (15:25)
[2019-09-01] MEDS: VANCOMYCIN 2 GM in NA CHLORIDE 0.9% 500 ML IVPB SCH ×2 (03:00→14:14)
--- NOTE | 2019-09-01 11:11 | P.PN ---
Subjective Date of Service: 09/01/19 Chief Complaint: Swollen and erythematous right lower extremity Subjective: No new changes, Improving Review of Systems 10-point ROS is otherwise unremarkable Physical Examination - Vital Signs Temperature: 97.5 F Blood Pressure: 130/57 Pulse: 61 Respirations: 18 Pulse Ox (%): 97 - Physical Exam General: Alert, In no apparent distress HEENT: Atraumatic, Normocephalic Neck: Supple Respiratory: Clear to auscultation bilaterally Cardiovascular: Regular rate/rhythm, Edema Capillary refill: <2 Seconds Gastrointestinal: Soft and benign, W/out hepatosplenomegaly Musculoskeletal: No clubbing, Swelling, Erythema, Tenderness Integumentary: Tenderness/swelling, Erythema, Warmth Neurological: Normal speech, Normal strength at 5/5 x4 extr Lymphatics: No axilla or inguinal lymphadenopathy External genitalia: Deferred Rectal: Deferred - Studies Laboratory Last Values WBC 25.0 K/uL (4.3-10.9) H* D 08/31/19 05:27 RBC 3.97 M/uL (4.33-5.43) L 08/31/19 05:27 Hgb 12.4 g/dL (13.6-17.9) L 08/31/19 05:27 Hct 37.1 % (39.6-49.0) L 08/31/19 05:27 MCV 93.4 fL (80-100) 08/31/19 05:27 MCH 31.3 pg (27.0-35.0) 08/31/19 05:27 MCHC 33.5 g/dL (32.0-36.0) 08/31/19 05:27 RDW 14.2 % (12.1-15.2) 08/31/19 05:27 Plt Count 133 K/uL (152-406) L 08/31/19 05:27 MPV 9.3 fL (7.6-11.3) 08/31/19 05:27 Neutrophils % 18.9 % (41.7-73.7) L 08/31/19 05:27 Lymphocytes % 76.9 % (15.3-44.8) H 08/31/19 05:27 Monocytes % 3.2 % (3.3-12.3) L 08/31/19 05:27 Eosinophils % 0.8 % (0-4.4) 08/31/19 05:27 Basophils % 0.2 % (0-1.3) 08/31/19 05:27 Absolute Neutrophils 4.7 K/uL (1.8-8.0) 08/31/19 05:27 Segmented Neutrophils 17 % (40-80) L 08/31/19 05:27 Absolute Lymphocytes 19.2 K/uL (0.7-4.9) H 08/31/19 05:27 Lymphocytes 75 % (15-42) H 08/31/19 05:27 Monocytes 4 % (0-10) 08/31/19 05:27 Absolute Monocytes 0.8 K/uL (0.1-1.3) 08/31/19 05:27 Absolute Eosinophils 0.2 K/uL (0-0.5) 08/31/19 05:27 Absolute Basophils 0.0 K/uL (0-0.5) 08/31/19 05:27 Diff Path Review Yes 08/28/19 09:24 Atypical Lymphocytes 4 08/31/19 05:27 Smudge Cells 20 08/31/19 05:27 Giant Platelets Few present 08/28/19 09:24 Morphology Comment Not seen (NOT SEEN) 08/31/19 05:27 PT 18.3 SECONDS (9.5-12.5) H 08/28/19 09:24 INR 1.58 08/28/19 09:24 Sodium 142 mmol/L (136-145) 08/31/19 05:27 Potassium 3.9 mmol/L (3.5-5.1) 08/31/19 05:27 Chloride 110 mmol/L (98-107) H 08/31/19 05:27 Carbon Dioxide 27 mmol/L (21-32) 08/31/19 05:27 BUN 9 mg/dL (7-18) 08/31/19 05:27 Creatinine 0.77 mg/dL (0.55-1.3) 08/31/19 05:27 Estimated GFR > 90 mL/min (=/>90) 08/31/19 05:27 Glucose 119 mg/dL (74-106) H 08/31/19 05:27 Lactic Acid 1.2 mmol/L (0.4-2.0) 08/28/19 11:20 Calcium 7.9 mg/dL (8.5-10.1) L 08/31/19 05:27 Creatine Kinase 132 U/L (39-308) 08/28/19 09:24 Procalcitonin < 0.05 ng/mL (<0.50) 08/28/19 10:30 Vancomycin Trough 15.5 ug/mL (5.0-20.0) 08/31/19 13:59 Assessment & Plan - Problems (Diagnosis) (1) H/O chronic lymphocytic leukemia Current Visit: Yes Status: Acute (2) Cellulitis Current Visit: No Status: Acute (3) Lower extremity cellulitis Onset Date: 12/22/15 Current Visit: No Status: Acute Plan: Leukocytosis mostly secondary to lymphocytosis. Patient records history of leukemia could be lymphocytic leukemia. Blood cultures: No growth to date Continue IV Levaquin and vancomycin. Follow blood cultures. Keep right lower extremity elevated. Continues Xarelto. Atrial fibrillation is rate controlled. Appreciate help from ID As he has a previous history of Xanthomonas Maltiophilia Patient still complaining of pain in the leg Possible Dc home in a.m. Time Spent Managing Pts Care (In Minutes): 42
[2019-09-01] MEDS: Levofloxacin 750mg IV 750 MG/150 ML BAG IV SCH (13:03)
[2019-09-01] MEDS ORDERED: RIVAROXABAN 10 MG TABLET PO ONE (21:33)
[2019-09-02] MEDS: VANCOMYCIN 2 GM in NA CHLORIDE 0.9% 500 ML IVPB SCH ×2 (03:02→15:21)
[2019-09-02 06:07] LABS: Absolute Lymphocytes (CBC) 18.7 K/uL (0.7-4.9); Basophils % 0.2 % (0-1.3); Hematocrit 36.4 % (39.6-49.0); Lymphocytes % 77.6 % (15.3-44.8); MPV 9.3 fL (7.6-11.3); RBC Red Blood Cell Count 3.93 M/uL (4.33-5.43)
[2019-09-02 06:21] LABS: Protime INR 1.48
[2019-09-02 06:33] LABS: ALT/SGPT 18 U/L (12-78); AST/SGOT 16 U/L (15-37); Albumin 3.2 g/dL (3.4-5.0); Alkaline Phosphatase 59 U/L (45-117); BUN Blood Urea Nitrogen 12 mg/dL (7-18); Bicarbonate 27 mmol/L (21-32); Bilirubin Total 1.5 mg/dL (0.2-1.0); Glucose Level 123 mg/dL (74-106); Phosphorus 3.1 mg/dL (2.5-4.9); Potassium 3.9 mmol/L (3.5-5.1); Protein, Total 5.8 g/dL (6.4-8.2); Sodium Level 141 mmol/L (136-145)
[2019-09-02] MEDS ORDERED: TAMSULOSIN 0.4 MG SR CAP PO SCH (09:00)
[2019-09-02] MEDS: TAMSULOSIN 0.4 MG SR CAP PO SCH (11:20)
[2019-09-02] MEDS: FINASTERIDE 5 MG PO SCH (11:20)
--- NOTE | 2019-09-02 12:41 | P.PN ---
Subjective Date of Service: 09/02/19 Chief Complaint: Swollen and erythematous right lower extremity Patient is complaining his right lower extremity erythema and pain have gotten worse. He has had no fever. Cultures have yielded no growth. Physical Examination - Vital Signs Temperature: 97.4 F Blood Pressure: 117/61 Pulse: 61 Respirations: 18 Pulse Ox (%): 98 - Physical Exam General: Alert, In no apparent distress, Oriented x3 HEENT: Mucous membr. moist/pink, Sclerae nonicteric Neck: Supple, JVD not distended Respiratory: Clear to auscultation bilaterally, Normal air movement Cardiovascular: No edema, Normal S1 S2, Irregular heart rate/rhythm Capillary refill: <2 Seconds Gastrointestinal: Normal bowel sounds, Soft and benign, Non-distended, No tenderness Integumentary: Erythema (Right leg), Other (Ecchymosis right scalp and behind right knee.) Neurological: Normal speech, Normal strength at 5/5 x4 extr - Studies Microbiology Data (last 24 hrs): 08/28/19 10:45 Blood - Blood Aerobic Blood Culture - Final No growth in 5 days. 08/28/19 10:45 Blood - Blood Anaerobic Blood Culture - Final No growth in 5 days. 08/28/19 10:30 Blood - Blood Aerobic Blood Culture - Final No growth in 5 days. 08/28/19 10:30 Blood - Blood Anaerobic Blood Culture - Final No growth in 5 days. Assessment And Plan - Current Problems (Diagnosis) (1) Lower extremity cellulitis Onset Date: 12/22/15 Current Visit: No Status: Acute (2) Chronic atrial fibrillation Current Visit: Yes Status: Acute (3) Restless leg syndrome Current Visit: Yes Status: Acute (4) Sepsis Onset Date: 12/22/15 Current Visit: No Status: Acute (5) Lymphocytic leukemia Current Visit: Yes Status: Acute - Plan Continue antibiotics. Will order CT of right lower extremity to further evaluate the erythema and pain which have not responded to antibiotics. Leukocytosis likely related to lymphocytic leukemia. Consult to hematology oncology regarding lymphocytic leukemia placed. Keep right lower extremity elevated. Continues Xarelto. Atrial fibrillation is rate controlled.
[2019-09-02] MEDS: Levofloxacin 750mg IV 750 MG/150 ML BAG IV SCH (13:04)
--- NOTE | 2019-09-02 16:29 | RAD REPORT ---
EXAM DESCRIPTION: CT - Lower Extremity W/ Cont - 09/02/2019 4:07 pm CLINICAL HISTORY: Right lower ext, Cellulitis r/o abscess Pain and swelling right leg COMPARISON: Extremity Venous Uni Ltd dated 08/28/2019 FINDINGS: Skin thickening and reticulation of the subcutaneous fat is seen involving the right lower extremity. No localized fluid collection seen to indicate abscess. A knee joint effusion is not iden tified. The vastus medialis and intermedius muscles of the thigh have a somewhat heterogenous appearance and appears somewhat more prominent than typically seen. Medial ankle screw is present. No evidence of osteomyelitis. All CT scans are performed using dose optimization technique as appropriate and may include automated exposure control or mA/KV adjustment according to patient size. IMPRESSION: Mildly prominent and somewhat heterogenous appearance to the vastus medialis and interme dius muscles. Myositis or an infiltrative process is a possibility. Consider MRI imaging of the right thigh with contrast for further assessment. Elsewhere, mild skin thickening and subcutaneous laboratory changes are present without abscess or os teomyelitis.
[2019-09-02] MEDS: RIVAROXABAN 20 MG PO SCH (17:07)
[2019-09-02] MEDS: Gabapentin 300 MG CAPS PO SCH (20:14)
[2019-09-02] MEDS ORDERED: AMPICILLIN/SULBACTAM 3GM/VIAL ONE (22:57)
[2019-09-02] MEDS ORDERED: NA CHLORIDE 0.9% 100 ML IV ONE (23:00)
[2019-09-02] MEDS: AMPICILLIN/SULBACT 3 GM in NA CHLORIDE 0.9% 100 ML IVPB SCH (23:28)
[2019-09-03] MEDS: VANCOMYCIN 2 GM in NA CHLORIDE 0.9% 500 ML IVPB SCH ×2 (03:04→14:00)
[2019-09-03 04:32] LABS: Absolute Lymphocytes (CBC) 16.5 K/uL (0.7-4.9); Basophils % 0.2 % (0-1.3); Hematocrit 37.2 % (39.6-49.0); Lymphocytes % 78.3 % (15.3-44.8); MPV 9.1 fL (7.6-11.3); RBC Red Blood Cell Count 4.04 M/uL (4.33-5.43)
[2019-09-03] MEDS ORDERED: NA CHLORIDE 0.9% 100 ML IV ONE (04:37)
[2019-09-03] MEDS: AMPICILLIN/SULBACT 3 GM in NA CHLORIDE 0.9% 100 ML IVPB SCH ×3 (05:16→16:45)
[2019-09-03] MEDS ORDERED: HYDROCORTISONE SUC 100 MG INJ IV SCH (06:00)
[2019-09-03] MEDS: TAMSULOSIN 0.4 MG SR CAP PO SCH (07:41)
[2019-09-03] MEDS: FINASTERIDE 5 MG PO SCH (07:42)
[2019-09-03] MEDS ORDERED: TAMSULOSIN 0.4 MG SR CAP PO SCH (09:00)
--- NOTE | 2019-09-03 09:53 | CON ---
History Of Present Illness: Patient is a 79-year-old male, I was consulted for cellulitis of right l eg. Patient had a fall prior to coming to the hospital and after which he developed a large area of purplish discoloration to the leg and to the thigh region all the way up to hip. Patient also has di scomfort in this area, which continued for more than a week without any fevers or chills. Patient on arrival to the emergency room and was found to have a white blood cell count of 25,000 with signific ant history of chronic myelocytic leukemia. Patient was admitted for evaluation of DVT and celluliti s and was started on IV antibiotic. Patient denies any other problems at this time. Past Medical History: BPH for which he is going to atrial fibrillation, asbestosis, ankle surgery, brain surgery for acoustic neuroma, left leg injury secondary to trauma, status post develo ping cellulitis. Patient denies any recurrent infections of the skin. Family History: Noncontributory. Medications: Levaquin and vancomycin. See MAR for other medications. Allergies: NO KNOWN DRUG ALLERGIES. Review of Systems: A 10-point review was performed. Social History: Nonsmoker. Alcohol social. Physical Examination: General: Patient sitting in easy chair, not in any acute distress. Vital Signs: Temperature 97, pulse 63, respirations 16, blood pressure 149/72. HEENT: Unremarkable. Neck: Supple. Lungs: Clear to auscultation. Heart: S1, S2. Irregular. Abdomen: Soft, nontender. Bowel sounds present. Extremities: 1+ edema with erythematous changes and purplish discoloration noted on the right lower extremity above the ankle all the way up to the knee region and also ecchymotic changes noted on the thigh and right hip area. Laboratory Data: Shows WBC 25,000, hemoglobin 12.4, platelets are 133. Chemistry shows sodium 142, potassium 3.9, chloride 110, bicarb 27, BUN 9, creatinine 0.7, glucose 119. Micro data shows blood c ultures are negative. Doppler study of the leg is negative. Assessment And Plan: A 79-year-old male with multiple medical problems, especially chronic myelocyti c leukemia, coming in with leukocytosis after a fall causing his right leg to have erythematous omer es and traumatic wound, which has healed. At this time, he will continue antibiotic orally for total of 10 days as patient is already started on vancomycin and Levaquin. We will recommend Levaquin ora l to be continued and discontinue vancomycin. Follow up with Hematology/Oncology Team for evaluation of the . Continue supportive care. Keep leg elevated whenever possible. Patient was als o going to monitor for signs of infection and his ecchymosis will last for few weeks. Thank you Dr. Yan for consult. ZINA/LUCIEN Voice ID: [id number] Report ID: [id number]
[2019-09-03] MEDS: RIVAROXABAN 20 MG PO SCH (16:05)
--- NOTE | 2019-09-03 19:02 | PN ---
Date of Progress Note: 09/03/2019 Subjective: Patient's code status is full. Patient is seen and examined. Chart reviewed and case d iscussed with RN and Dr. Easley, patient's PCP. However, since patient has been on the hospitalist service for the past 6 days, Dr. Easley will follow up with him as an outpatient. Hospitalist jason douglas will continue to monitor him in the inpatient setting. Family at the bedside. All questions answ ered. Treatment plan explained. Case also discussed with Dr. Westfall regarding his CLL. Patient continues to have swelling and erythema as well as pain in his right lower extremity. Clinically, h juan does not have any signs of sepsis. Code Status: Full. Medications: List reviewed. Physical Examination: Vital Signs: Temperature 97.1, heart rate 61, blood pressure 151/66, respirations 16, O2 97% on room air. General: Awake, alert, oriented x3. Elderly male, not in any acute distress, obese. BMI 38. CV: S1, S2. Regular rate and rhythm. Peripheral pulses are weak. Respiratory: Moving air well bilaterally. No wheezing or stridor. Gastrointestinal: Abdomen is soft, nontender, nondistended. Positive bowel sounds. Extremities: No clubbing or cyanosis. Patient has right lower extremity edema. Skin: Erythema of the right lower extremity. Ecchymosis is also present, worse than left lower extr emity, which has some chronic venous stasis changes. Neurologic: Nonfocal. Musculoskeletal: Patient has swelling and some pain of his right lower extremity compared to the lef t. Laboratory Data: CK level is 29. Cortisol level is 2.63. Aldolase is pending. WBC 21.1, H and H 1 2.5 and 37.2, platelets 132, neutrophils 17%. Blood cultures show no growth to date. Imaging Data: Lower extremity CT shows mildly prominent and somewhat heterogeneous appearance to the vastus medialis and intermedius muscle. Myositis or infiltrative process is a possibility. Conside r MRI imaging of the right thigh with contrast for further assessment. Also very mild skin thickenin g and subcutaneous inflammatory changes are present without abscess or osteomyelitis. Assessment: A 79-year-old male with: 1.Right lower extremity cellulitis. CT scan shows possible myositis. We will obtain MRI for furthe r elucidation. Doppler sonogram was negative for deep vein thrombosis. Continue with IV antibiotics for now. Appreciate ID input. May need to obtain surgical consultation. We will check CRP and ESR . CK level is negative. Aldolase is pending. 2.Sepsis, resolved. 3.CLL. Dr. Westfall has been consulted. Patient has not followed up with her in several years. We will continue to monitor his white cell count. 4.Restless legs syndrome. 5.Chronic atrial fibrillation. Continue with rate control. Patient is on Xarelto. 6.Obesity, BMI is 38. 7.BPH. Plan: As above. Disposition: Likely discharge in the next 24-48 hours depending on clinical response. /MODKanika Voice ID: [id number] Report ID: [id number]
--- NOTE | 2019-09-03 19:17 | RAD REPORT ---
EXAM DESCRIPTION: MRI - Femur Right W/Wo Cont - 09/03/2019 6:58 pm CLINICAL HISTORY: right lower ext swelling, myositis COMPARISON: Lower Extremity W/ Cont dated 09/02/2019 TECHNIQUE: Multiplanar imaging of the right thigh performed using T1 weighted, proton density, T2 we ighted, T2 STIR and postcontrast T1 weighted imaging. A 20 milliliter MultiHance contrast volume was utilized. FINDINGS: No femur fracture is present. No edema or marrow replacing process seen. No suspicion for periosteal reaction. In the vastus medialis and intermedius muscles of the proximal and mid thigh the re is heterogeneous and lobulated mass effect. This is 5 cm in transverse diameter with a 14 centimet er craniocaudal dimension. This is heterogeneous intermediate and hyperintense in signal characterist ics on T1 weighted imaging. T2 sequencing is a predominantly hyperintense pattern though there is het erogeneity throughout. Postcontrast T1 weighted imaging shows the bulk of the mass to be hypointense. There is peripheral enhancement. There is some enhancing edematous type signal in the muscle. Intramuscular hematoma is the favored etiology. No other intramuscular abnormality. No other soft tis sudhir mass seen. In the subcutaneous fatty tissues of the lateral and posterior thigh there is some mil d edema signal but no abscess or drainable fluid collection. Mild cellulitis component is not exclude d. IMPRESSION: Large intramuscular hematoma involving the vastus medialis and intermedius muscles of th e proximal and mid right thigh. Mild edema in the lateral and posterolateral subcutaneous fatty tissues. No abscess or drainable flui d collection. A mild cellulitis component not excluded.
--- NOTE | 2019-09-03 20:20 | PN ---
Subjective: Patient is lying in bed. No fevers. No other complaints except some pains in his right leg. Objective: Vital Signs: Temperature 97, pulse 57, respirations 18, blood pressure 116/55. Lungs: Basal crackles. Heart: S1, S2. Regular. Abdomen: Soft, nontender. Bowel sounds present. Extremity: Right leg 1+ edema with multiple ecchymotic regions noted in thigh and lower extremity be low knee region. Laboratory Data: Shows WBC 21,000, hemoglobin 12.5, platelets 132. Chemistry shows sodium 141, pota ssium 3.9, chloride 109, bicarb 27, BUN 12, creatinine 1.7, glucose 123. Procalcitonin is 0.05. Assessment And Plan: Right lower extremity cellulitis and myositis on CT scan, most likely secondary to fall and trauma. Patient leukocytosis can be related to CLL. As patient has low procalcitonin, we will recommend to switch to oral antibiotics. Patient is currently being treated with Unasyn and can be switched to Augmentin and doxycycline. We will follow the patient closely. Also recommend to continue probiotic for 7 more days. We will follow the patient closely. NF/MODL Voice ID: [id number] Report ID: [id number]
[2019-09-03] MEDS: AMOX/K CLAV 875 MG TAB PO SCH (20:46)
[2019-09-03] MEDS: DOXYCYCLINE 100 MG CAP PO SCH (20:46)
[2019-09-03] MEDS: Gabapentin 300 MG CAPS PO SCH (20:47)
--- NOTE | 2019-09-03 23:14 | P.CNS ---
Date of Consult: 09/03/19 (Oncology) REASON FOR CONSULTATION: LEUCOCYTOSIS HPI: patient admitted with worsening right lower extremity swelling. Apparently he had a fall a few weeks ago and noticed that his RLE was getting swollen associated with worsening pain and redness. He reports chronic peripheral disease and had chronic LE edema with prior episodes of cellulitis as well in 2015 and 2016 per patient. Hematology consulted for evaluation of leucocytosis. He gives a h/o CLL diagnosed in [address] Flowers. He was told that he did not need treatment at that time and he failed to follow up for surveillance. When seen today, his daughter was at bedside. He reports that the RLE swelling has reduced considerably since admission and treatment with analgesia and antibiotics. Denies any worsening fatigue, loss of weight or appetite. No abnormal swellings, early satiety, fevers, chills, night sweats. REVIEW OF SYSTEMS: General (Constitutional): (+) fatigue; (-)fever ;(-)night sweat; (-)loss of appetite; (-) wt loss; (-) heat or cold intolerance; (-) itching ; (-) recurrent infection; (-) history of anemia; (-) h/o transfusion; (-) bruising HEENT: (-) [place]; (-)vision loss; (-) hearing loss; (-)nasal congestion; (-) bleeding mouth, nose, gums; (-) swallowing difficulties; (-)hoarseness Cardiovascular: (-) chest pain or pressure; (-) SOB; (-) orthopnea or PND; (-) palpitation; (- ) syncope; (-) leg swelling. Pulmonary: (-)cough ; (-)sputum; (-) shortness of breath on exertion; (-)wheezing; (-) hemoptysis Gastrointestinal: (-) reflux; (-) heartburn. (-)nausea; (-)vomiting or (-)hematemesis. (-)change in bowel habits. (-) rectal bleeding; (-) black tarry stools; (-) diarrhea; (-) constipation Genitourinary: (-) pain or burning during micturition. (+) urgency; (-)frequency and (-)poor stream of urine. (-) hematuria. (-) polyuria; (-)nocturia; (-) dribbling; Neurologic: (-)double vision; (-) chronic loss of vision. (-) difficulty with speech or memory. (-) weakness ; (-) tingling in the lower extremities; (-) numbness of feet; (-) difficulty walking or with balance Musculoskeletal: (+) arthritis Skin: see hpi PMH: atrial fibrillation, COPD, obesity, osteoarthritis, asbestosis diagnosed in 1994. , BPH, obstructive sleep apnea, prostate cancer Past Surgical History : Acoustic neuroma right ear, resected in 1992. surgical repair of broken Rt ankle. prostrate biopsies. vasectomy SH: Tobacco usage - 3-Former Smoker; Alcohol usage - Yes : No. of drinks - 1 Intake frequency - Daily; Recreational drug usage - No smoked 1 ppd until 24 years old. FH: Father : @68 due to Leukemia Brother : @47 pancreatic ca and Heart problems EXAMINATION: General Appearance: elderly, alert, cooperative, not in distress Skin, Hair & Nails: normal texture, No open wounds. Bruise right lower extremity Head: normocephalic, atraumatic. Eyes: anicteric, no injection of conjunctivae; no pallor Ears: grossly intact Nose: nares patent. Throat: no erythema, no exudate. Neck: neck supple, without lymphadenopathy. Respiratory: good respiratory effort, clear to auscultation; no wheezing. Cardiovascular: regular rate and rhythm, no murmurs, no cyanosis. Abdomen: bowel sounds present and equal in all four quadrants, abdomen is soft, truncal obesity; nontender, non-distended, no masses, no palpable hepatosplenomegaly (exxam limited). Peripheral Vascular: b/l edema R>L. Chronic venous stasis changes/ ecchymosis and erythema. No calf tenderness Musculoskeletal: normal gait and posture; good ROM Neurological: AAOx3; power 5/5 all extremities; NFND Lymph: no palpable supraclavicular, submental, cervical, axillary, inguinal LAD / limited exam due to body habitus. LABS and Imaging as per chart- reviewed. WBC 21K Hb 12-13g MCV 92 Plt 132K ANC 3.7 ALC 16.5. Lymphocytes 78% ASSESSMENT/PLAN: 79 year old man admitted with worsening Right lower extremity. Currently being treated for cellulitis/ mysositis with broad sectrum antibiotics. Hematology consulted for leucocytosis. 1. Leucocytosis: Some element of leucocytosis from infectious process but his neutrophils have remained adequate and reasonably in the normal range. Leucocytosis predominantly lymphocytic as expected in CLL. 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 WBC in the range of 22-24K predominantly lymphocytic with 75-80% lymphocytes. Hb stable in the range of 12-13gm and mild thrombocytopenia. Given no B symptoms and no clinical evidence of disease progression, I feel he might still be at Stage 0 CLL. Mild TP likely due to cconsumptive coagulapathy given current infection, antibiotic use etc. Plt count has not changed overtly in the last 6 years. I strongly urged him to follow up with us out patient for surveillance of CLL, monitoring his s/s and cbc etc to assess trend and stability. No intervention recommended at this time from the CLL point of view. I recommend repeat a cbc in 1 month once acute infectious process had settled. 2. Prostate cancer: Reports diagnosed with prostate cancer many years ago and had lost to follow up. Reports a recent PSA of 12 and is to follow up with Urology in 8 weeks. Strongly encouraged to follow up with Urology on discharge. 3. Cellulitis/ peripheral vascular disease: Resolving and on antibiotics. Care as per primary medical team and ID
[2019-09-04] MEDS: DOXYCYCLINE 100 MG CAP PO SCH (07:31)
[2019-09-04] MEDS: TAMSULOSIN 0.4 MG SR CAP PO SCH (07:32)
[2019-09-04] MEDS: AMOX/K CLAV 875 MG TAB PO SCH (07:32)
[2019-09-04] MEDS: FINASTERIDE 5 MG PO SCH (07:32)
[2019-09-04 07:37] VITALS: O2SAT 96
--- NOTE | 2019-09-04 15:01 | P.CNS ---
Date of Consult: 09/04/19 PC: I was asked to see this 79-year-old male in regards to cellulitis, erythema and swelling of his right leg. HPC: Patient apparently fell almost 2 weeks ago. At that time sustained some lacerations to the anterior carroll of his right leg. Also had some pain in discomfort in the upper portion of his leg above his knee. About 3-4 days later noticed some discoloration posteriorly on his thigh at the lower edge. Oval last couple days prior to his admission he had increasing pain, swelling and discomfort. He came to the ER for evaluation. PMH: CLL, morbid obesity prostate SOC: No known allergies, on Xarelto SYS REVIEW: No cough, wheeze, shortness of breath. No chest pain or palpitations. No dizziness or weakness when he fell, just tripped. O/E awake alert vital signs are stable HEENT: Within normal limits Chest: Chest movement equal bilaterally ABD: NAD LOCO: Has some mild jaundice around his knee, this turns into more erythema and discoloration in the lower portion of his leg. No he had in that area. Is mildly edematous. DATA: Elevated white cell count (has CLL) IMPRESSION: This patient appears to have had a muscle tear with bleeding during that time of his acute injury. The hematoma appears to be resolving. ( CT scan was examined) PLAN: The patient currently does not require any surgical intervention. I have explained to him he needs to keep his leg elevated. Flexion and extension of his ankle was explained. Keep the area clean, and do not suspect the scabs on the anterior surface of his right leg. He will most likely be discharged on oral antibiotics. He can follow up with me in a week if need be, or give me a phone call to let me know that he is well and follow up with his primary care physician. Should any questions or problems, he is to return to the emergency room or contact me.
[2019-09-04 16:33] VITALS: BP 115/56; TEMP 97.5
--- NOTE | 2019-09-04 16:52 | P.PN ---
Date of Service: 09/04/19 Patients history checked on [facility]. His score is 120. Low risk. Going home on muscle relaxants flexeril
--- NOTE | 2019-09-05 00:09 | DS ---
Date of Discharge: 09/04/2019 Consultants: 1.Ricky Hardwick M.D., General Surgery. 2.Kary Westfall M.D., with Hematology. 3.Jah Preston M.D. With Infectious Disease. Procedures: None. Admitting Diagnoses: 1.Right lower extremity cellulitis. 2.Chronic atrial fibrillation, on Xarelto. 3.Restless legs syndrome. 4.Sepsis. 5.Benign prostatic hypertrophy. 6.Obesity, BMI 38. Discharge Diagnoses: 1.Sepsis, resolved. 2.Right lower extremity cellulitis, improving. 3.Hematoma of the right lower extremity secondary to fall. 4.Chronic lymphocytic leukemia, stable. 5.Restless legs syndrome. 6.Chronic atrial fibrillation on Xarelto. 7.Obesity, BMI 38. 8.Benign prostatic hypertrophy. 9.Peripheral arterial disease. Hospital Course: The patient is a 79-year-old male with past medical history of CLL, has not followe d up with Hematology in 2013, atrial fibrillation on Xarelto, BPH on Proscar and Flomax, who had a me chanical fall, tripped over some equipment. He is not on tamsulosin, just some Proscar. Patient has a mechanical fall, tripped over some equipment and had an abrasion to his right lower extremity. De veloped subsequent cellulitis, ecchymosis. Patient did not seek treatment for several days after the incident. He presented with right lower extremity cellulitis. He was started on IV antibiotics. C ultures were obtained. He did have elevated white blood cell count, however, this was mainly due to his CLL as his neutrophils were not elevated, his lymphocytes were elevated. Patient had improvement in his sepsis. His procalcitonin was negative. CK level was normal. Continue to have swelling and redness of his lower extremity. He was seen by Infectious Disease. His cultures were negative, did not show any growth. Lower extremity CT was done showed myositis and subsequently had MRI done for further elucidation and was found to have large intramuscular hematoma of the proximal and mid right thigh. The patient was also seen by Dr. Hardwick for the hematoma. He did not recommend any surgical intervention for this hematoma. Of note, patient is on Xarelto, however, injury was approximately 2 weeks prior to discharge and his hemoglobin levels have remained stable. His swelling has decreased . He does report some mild pain with activity, especially walking. Patient was also seen by Dr. Dra retana with Hematology. Patient had seen her partner previously in 2013, but never followed up for his CLL. According to Dr. Westfall, his numbers remain about the same. He is not in any acute pha se at this time with his leukemia. Patient was then stable for discharge, he was sent home to follow up with his primary care physician in 2-3 days, follow up with Dr. Hardwick in 1 week for his hematoma , and to follow up with Dr. [facility]fall [facility] for his CLL maintenance. Patient to fo llow up with Infectious Disease, Dr. Preston, in 2 weeks. Return to ER for worsening condition. Activity: As tolerated. Medications: As per medication reconciliation list. No driving or operating heavy machinery while o n muscle relaxants. Diet: Heart healthy. Physical Examination: General: Awake, alert, and oriented x3, not in any acute distress, elderly male, obese. CV: S1, S2. Respiratory: Moving air well bilaterally. Abdomen: Abdomen is soft, nontender, nondistended. Positive bowel sounds. Extremities: No clubbing, cyanosis. Patient has edema. Right lower extremity is worse. Skin: Erythema of the right lower extremity, improving. Some muscle tightness significantly improve d from previous. Total time spent discharging patient was 39 minutes. /LUCIEN Voice ID: [id number] Report ID: [id number]
== END 2019-09-04 17:32 | disposition home or self-care (01) | DRG 872 ==
LOC: ER 08:40 → ERHOLD 11:58 → 4TH 13:23
PROVIDERS: ADMIT Family Medicine; ATTEND Internal Medicine
DX: A41.9 Sepsis, unspecified organism (principal); L03.115 Cellulitis of right lower limb; I48.20 Chronic atrial fibrillation, unspecified; C91.10 Chronic lymphocytic leukemia of B-cell type not having achieved remission; S80.11XA Contusion of right lower leg, initial encounter; W01.0XXA Fall on same level from slipping, tripping and stumbling without subsequent striking against object, initial encounter; Y92.9 Unspecified place or not applicable; G25.81 Restless legs syndrome; Z79.01 Long term (current) use of anticoagulants; E66.9 Obesity, unspecified; Z68.38 Body mass index [BMI] 38.0-38.9, adult; N40.0 Benign prostatic hyperplasia without lower urinary tract symptoms; I73.9 Peripheral vascular disease, unspecified
CPT/HCPCS: 36415; 73701; 80048; 80053; 80202; 82085; 82533; 82550; 83605; 83735; 84100; 84145; 85025; 85610; 85652; 85730; 86140; 87040; 93971; 94760; 96365; 99285; A9577; J0295; J1720; J2270; J7040; Q9967

== ENCOUNTER 2022-12-22 12:45 | Inpatient (IN) | payer OTHER ==
--- OUTSIDE RECORDS SUMMARY | 2022-12-22 12:57 | XMS REPORT | Continuity of Care Document ---
:1940 Author Organization [facility] t Address [address] [place] [address] [place] [id number] Care Team Providers Name Role Phone Anant Easley MD Primary Care Physician Ranjan Womack Attending Clinician Unavailable Ra Foreign Gaona Attending Clinician Unavailable Kandis Mcnally MD Attending Clinician [phone] Tomasa Mcdaniel MD Attending Clinician Compa Cagel Attending Clinician Ivania Corey Attending Clinician Unavailable JAVIER MEJIA Attending Clinician Unavailable Ana Lilia KOTHARI, Ayush Attending Clinician Ra Foreign Gaona Admitting Clinician Unavailable KANDIS MCNALLY Admitting Clinician Unavailable Ivania Corey Admitting Clinician Unavailable Payers Payer Name Policy Type Policy Number Effective Date Expiration Date S ource Problems Condition Condition Condition Status Onset Resolution Last Treating Co mments Source Name Details Category Date Date Treatment Clinician Date Elevated Elevated Disease Active [facility] prostate prostate 07-10 [facility] specific specific 00:00: of antigen antigen 00 Medicin (PSA) (PSA) e Allergies, Adverse Reactions, Alerts Allergy Allergy Status Severity Reaction(s) Onset Inactive Treating Comm ents Source Name Type Date Date Clinician No Known DA Active [facility]ie 11-28 [place] [facility] 00:[facility]: [facility] 00 [facility] Family History Family Member Diagnosis Comments Start Date Stop Date Source Natural father Cancer [facility] mother [facility] Social History Social Habit Start Date Stop Date Quantity Comments Source Gender identity 2020-10-22 Identifies as male M ethodist 14:43:51 gender (finding) Hospital Sexual orientation 2020-10-22 Heterosexual Meth odist 14:43:51 (finding) Hospital Sex Assigned At [facility] Alcohol intake 2022-03-01 2022-03-01 Ex-drinker [facility] 00:00:00 00:00:00 (finding) Hospital History of Social 2022-03-01 2022-03-[address] function 00:00:00 00:00:00 Hospital Tobacco use and 2022-02-26 2022-02-26 Smokeless tobacco Me thodist exposure 00:00:00 00:00:00 non-user Hospital Tobacco Comment 2022-02-26 2022-02-26 None [facility] 00:00:00 00:00:00 Hospital Alcohol Comment 2022-02-26 2022-02-26 seldom [facility] 00:00:00 00:00:00 Hospital Smoking Status Start Date Stop Date Source Never smoked tobacco [facility]spital Medications Ordered Filled Start Stop Current Ordering Indication Dosage Frequency Signature Comments Components Source Medication Medication Date Date Medication? Clinician (SIG) Name Name finasteride Yes 5mg Take 5 mg M ethodi (PROSCAR) 5 8-[address] mg tablet 17:01: Hospita 12 l finasteride Yes 5mg Take 5 mg M ethodi (PROSCAR) 5 8-[address] mg tablet 17:01: Hospita 12 l latanoprost 0 Yes Method i (XALATAN) 3-16 st 0.005 % 00:00: Hospita ophthalmic 00 l solution latanoprost 0 Yes Method i (XALATAN) 3-16 st 0.005 % 00:00: Hospita ophthalmic 00 l solution sildenafiL 0 Yes Methodi (VIAGRA) 2-12 st 100 MG 00:00: Hospita tablet 00 l sildenafiL 2020-0 Yes Methodi (VIAGRA) 2-12 st 100 MG 00:00: Hospita tablet 00 l gabapentin 2020-0 Yes Methodi (NEURONTIN) 2-11 st 300 mg 00:00: Hospita capsule 00 l gabapentin Yes Methodi (NEURONTIN) 2-11 st 300 mg 00:00: Hospita capsule 00 l latanoprost 2021- No Metho di (Xelpros) 07-04 08-12 st 0.005 % 00:00: 00:00 Hospita drops, 00 :00 l emulsion latanoprost 2021- No Metho di (Xelpros) 07-[address] 0.005 % 00:00: 00:00 Hospita drops, 00 :00 l emulsion finasteride Yes 5mg Take 5 mg B aylor (PROSCAR) 5 8-10 by mouth [facility] e[facility] MG tablet 19:02: daily. of Medicin e Rivaroxaban Yes Take by [facility] (XARELTO) 8-10 mouth. College 20 MG TABS 19:02: of 05 Medicin e gabapentin Yes 1{tbl} 1 Tab. [facility] in[facility] (NEURONTIN) 2-25 College 300 MG 00:00: of capsule 00 Medicin e amoxicillin 2020- No 1{tbl} Take 1 Tab [facility] -clavulanat 2-10 02-21 by mouth Col lege e 00:00: 05:59 two times of (AUGMENTIN) 00 :00 daily for Med icin 875-125 MG 10 days. e per tablet lisinopriL Yes Methodi (PRINIVIL) 1- st 5 mg tablet 00:00: Hospit a 00 l lisinopriL Yes Methodi (PRINIVIL) 1- st 5 mg tablet 00:00: Hospit a 00 l tamsulosin Yes TAKE ONE Met hodi (FLOMAX) 9-[address] 0.4 mg 00:00: MOUTH AT Hospita capsule 00 BEDTIME l Tamsulosin Yes TAKE ONE [facility] in[facility] HCl 0.4 MG 9-06 CAPSULE BY Col lege CAPS 00:00: MOUTH AT of 00 BEDTIME Medicin e tamsulosin Yes TAKE ONE Met hodi (FLOMAX) 9-[address] 0.4 mg 00:00: MOUTH AT Hospita capsule 00 BEDTIME l Tamsulosin Yes TAKE ONE [facility] inder HCl 0.4 MG 9-06 CAPSULE BY Col lege CAPS 00:00: MOUTH AT of 00 BEDTIME Medicin e rivaroxaban Yes Take by Met neili (XARELTO) 1- mouth. st 20 mg 00:00: Hospita tablet 00 l rivaroxaban Yes Take by Met neili (XARELTO) 1- mouth. st 20 mg 00:00: Hospita tablet 00 l finasteride Yes 5mg Take 5 mg B aylor (PROSCAR) 5 12-24 by mouth [facility] e[facility] MG tablet 19:56: daily. of 59 Medicin e Rivaroxaban Yes Take by [facility] (XARELTO) 6- mouth. College 20 MG TABS 19:56: of 59 Medicin e Vital Signs Vital Name Observation Time Observation Value Comments Source Systolic blood 2020-02-11 19:05:00 112 mm[Hg] [facility] pressure Medicine Diastolic blood 2020-02-11 19:05:00 60 mm[Hg] [facility] Medicine Heart rate 2020-02-11 19:05:00 53 /min [facility] Body temperature 2020-02-11 19:05:00 36.94 [facility] Body weight 2020-02-11 19:05:00 111.131 kg [facility] BMI 2020-02-11 19:05:00 36.18 kg/m2 [facility] Systolic blood 2022-02-26 20:00:00 94 mm[Hg] [facility] pressure Diastolic blood 2022-02-26 20:00:00 56 mm[Hg] [facility] pressure Heart rate 2022-02-26 20:00:00 49 /min [facility] Body temperature 2022-02-26 20:00:00 36.22 [facility]y [facility] Respiratory rate 2022-02-26 20:00:00 18 /min [facility] Oxygen saturation in 2022-02-26 20:00:00 95 /min [facility] Arterial blood by Pulse oximetry Body height 2022-02-26 17:45:00 175.3 cm [facility] Body weight 2022-02-26 17:45:00 99.2 kg [facility] BMI 2022-02-26 17:45:00 32.30 kg/m2 [facility] Procedures Procedure Date / Time Performed Performing Clinician Sourc e ORBITOTOMY 2022-02-26 19:20:00 [place] [facility] ECG 12-LEAD 2022-02-26 17:48:48 UliKandis saeed [facility] ORBITOTOMY 2022-02-12 20:00:00 Uli Kandis [facility] POCT URINALYSIS 2020-02-11 00:00:00 Ayush Sung [facility] CREATININE SERUM 2019-08-10 14:41:00 Ayush Sung [facility] of Medicine BUN 2019-08-10 14:41:00 Ayush Sung [facility] POCT URINALYSIS 2019-08-10 00:00:00 Ana Lilia Ayush [facility] Plan of Care Planned Activity Planned Date Details Comments Source Future Scheduled 2022-12-17 COVID-[address] Test 06:59:17 (#1) [code = Hospital COVID-19 VACCINE (#1)] Future Scheduled 2022-12-17 SHINGLES VACCINES (1 Met hodist Test 06:59:17 of 2) [code = Hospital SHINGLES VACCINES (1 of 2)] Future Scheduled 2022-12-17 65+ PNEUMOCOCCAL Methodi [facility] Test 06:59:17 VACCINE (2 - PCV) Hospital [code = 65+ PNEUMOCOCCAL VACCINE (2 - PCV)] Future Scheduled 2022-12-17 INFLUENZA VACCINE Method ist Test 06:59:17 [code = INFLUENZA Hospital VACCINE] Future Scheduled 2022-10-08 COVID-[address] Test 18:27:04 (#1) [code = Hospital COVID-19 VACCINE (#1)] Future Scheduled 2022-10-08 SHINGLES VACCINES (1 Met hodist Test 18:27:04 of 2) [code = Hospital SHINGLES VACCINES (1 of 2)] Future Scheduled 2022-10-08 65+ PNEUMOCOCCAL Methodi st Test 18:27:04 VACCINE (2 - PCV) Hospital [code = 65+ PNEUMOCOCCAL VACCINE (2 - PCV)] Future Scheduled 2022-10-08 INFLUENZA VACCINE Method ist Test 18:27:04 [code = INFLUENZA Hospital VACCINE] Diagnostic Test 2020-02-25 PHI PANEL (URO DEPT) Expected: [employer] Pending 00:00:00 [code = 62167] 02/25/2020 of Medicine (Approximate), Expires: 03/12/2020 Diagnostic Test 2020-02-25 TESTOSTERONE-TOTAL(U Expected: [employer] Pending 00:00:00 RO DEPT) [code = 02/25/2020 of Medicine 2986-8] (Approximate), Expires: 03/12/2020 Future Scheduled MEDICARE AWV [facility] Test (Initial) [code = of Medicin e MEDICARE AWV (Initial)] Future Scheduled FLU VACCINE > 6 [facility]lege Test MONTHS [code = FLU of Medici ne VACCINE > 6 MONTHS] Future Scheduled CULTURE, Ordered: [facility] Test URINE/SENSITIVITY ON 02/11/2020 of Medi cine ALL [code = 17396-0] Future Scheduled TETANUS SHOT (ADULT) [facility] Test [code = TETANUS SHOT of Medi cine (ADULT)] Future Scheduled FALL SCREEN [code = [employer] Test FALL SCREEN] of Medicine Future Scheduled MEDICARE AWV [facility] Test (Initial) [code = of Medicin e MEDICARE AWV (Initial)] Future Scheduled FLU VACCINE > 6 [facility] Test MONTHS [code = FLU of Medici ne VACCINE > 6 MONTHS] Future Scheduled CULTURE, [facility] Test URINE/SENSITIVITY ON of Medi cine ALL [code = 33344-3] Future Scheduled TETANUS SHOT (ADULT) [facility] Test [code = TETANUS SHOT of Medi cine (ADULT)] Future Scheduled FALL SCREEN [code = [employer] Test FALL SCREEN] of Medicine Future Scheduled PNEUMOVAX >=65 [facility] Co [facility] Test (PPSV23) [code = of Medicine PNEUMOVAX >=65 (PPSV23)] Future Scheduled PREVNAR >= 65 [facility] Test (PCV13) [code = of Medicine PREVNAR >= 65 (PCV13)] Encounters Start End Encounter Admission Attending Care Care Encounter Source Date/Time Date/Time Type Type Clinicians Facility Department ID 2022-12-17 [facility] LYND[facility] [id number] [facility] 03:19:[address] 2022-12-17 2022-12-22 Inpatient TR Ra Jimenez [facility] [id number] [facility] 03:50:00 10:46:00 88 Hortencia [facility] 2022-02-26 2022-02-26 [facility], 1.2.840.1 [id number] 2099 [id number] Methodi 11:37:00 15:55:00 Encounter Kandis 65698.1.1 764 s t [facility] 3.430.2.7 Hospit a .3.500501 l .8 2022-02-26 2022-02-26 [facility], 1.2.840.1 [id number] Methodi 11:37:00 15:55:00 Encounter Kandis 81614.1.1 764 s t [facility] 3.430.2.7 Hospit a .3.165532 l .8 2022-02-26 2022-02-26 [facility], 1.2.840.1 [id number] Methodi 13:25:00 15:35:[address] [facility] 3.430.2.7 Hospit a .3.484997 l .8 2022-02-26 2022-02-26 [facility], 1.2.840.1 16 Methodi 13:25:00 15:35:[address] [facility] 3.430.2.7 Hospit a .3.419861 l .8 2022-02-26 2022-02-26 Anesthesia LuTomasa landry [facility] 1.2.840.1 [id number] Methodi 14:20:00 14:54:00 Event Gurjit, Compa 74124.1.[address] 3.430.2.7 Hospit a .3.467370 l .8 2022-02-26 2022-02-26 Anesthesia Tomasa Mcdaniel [facility] 1.2.840.1 [id number] Methodi 14:20:00 14:54:00 Event Gurjit, Compa 42543.1.[address] 3.430.2.7 Hospit a .3.006962 l .8 2022-02-25 2022-02-25 Travel 1.2.840.1 1.2.961.999 0660 145769 Methodi 00:00:00 00:00:[address] 3.430.2.7 0.2.7.3.698 Ho spita .3.615793 084.8 l .8 2022-02-25 2022-02-25 Travel 1.2.840.1 1.2.566.412 6101 661325 Methodi 00:00:00 00:00:[address] 3.430.2.7 0.2.7.3.698 Ho spita .3.247659 084.8 l .8 2022-02-12 2022-02-12 [facility], 1.2.840.1 [id number] 2099 [id number] Methodi 12:37:00 16:26:00 Encounter Kandis 29423.1.1 454 s t [facility] 3.430.2.7 Hospit a .3.703918 l .8 2022-02-12 2022-02-12 [facility], 1.2.840.1 [id number] 2099 [id number] Methodi 12:37:00 16:26:00 Encounter Kandis 78198.1.1 454 s t [facility] 3.430.2.7 Hospit a .3.089487 l .8 2022-02-12 2022-02-12 Anesthesia Luehr, 1.2.840.1 [id number] [id number] Methodi 15:00:00 15:45:00 Event Tomasa [facility] 75624.1.1 911 s t 3.430.2.7 Hospit a .3.192767 l .8 2022-02-12 2022-02-12 Anesthesia Luehr, 1.2.840.1 [id number] Methodi 15:00:00 15:45:00 Event Tomasa [facility] 55976.1.1 911 s t 3.430.2.7 Hospit a .3.842514 l .8 2022-02-12 2022-02-12 Surgery [place], 1.2.840.1 [id number] Methodi 12:45:00 14:55:[address] [facility] 3.430.2.7 Hospit a .3.066428 l .8 2022-02-12 2022-02-12 Surgery [place], 1.2.840.1 [id number] Methodi 12:45:00 14:55:[address] [facility] 3.430.2.7 Hospit a .3.517685 l .8 2022-02-12 2022-02-12 Travel 1.2.840.1 1.2.130.581 5137 046642 Methodi 00:00:00 00:00:[address] 3.430.2.7 0.2.7.3.698 Ho spita .3.256706 084.8 l .8 2022-02-12 2022-02-12 Travel 1.2.840.1 1.2.352.967 6975 672376 Methodi 00:00:00 00:00:[address] 3.430.2.7 0.2.7.3.698 Ho spita .3.339673 084.8 l .8 2022-02-09 2022-02-09 Travel 1.2.840.1 1.2.675.435 6250 457553 Methodi 00:00:00 00:00:[address] 3.430.2.7 0.2.7.3.698 Ho spita .3.394454 084.8 l .8 2022-02-09 2022-02-09 Travel 1.2.840.1 1.2.629.941 9289 557485 Methodi 00:00:00 00:00:[address] 3.430.2.7 0.2.7.3.698 Ho spita .3.941804 084.8 l .8 2022-02-01 2022-02-01 Travel 1.2.840.1 1.2.744.082 2221 731363 Methodi 00:00:00 00:00:[address] 3.430.2.7 0.2.7.3.698 Ho spita .3.623997 084.8 l .8 2022-02-01 2022-02-01 Travel 1.2.840.1 1.2.527.299 3138 777429 Methodi 00:00:00 00:00:[address] 3.430.2.7 0.2.7.3.698 Ho spita .3.643476 084.8 l .8 2021-11-28 2021-11-29 Inpatient LLOYD MacielU TELE [id number] [facility] 04:44:00 11:27:[address] [facility] 2021-11-28 2021-11-29 Inpatient ZAINA Maciel TELE [id number] [facility] 04:44:00 11:27:[id number] [facility] 2020-10-23 2020-10-23 Outpatient SITTER, [facility] [id number] [address] [place] [address] 00:00:00 00:00:00 JAVIER 662 Method i 2020-10-23 2020-10-23 Outpatient SITTER, [facility] [id number] [address] [place] [address] 00:00:00 00:00:00 JAVIER 673 Method i 2020-10-23 2020-10-23 Outpatient SITTER, [facility] [id number] [address] [place] [address] 00:00:00 00:00:00 JAVIER 555 Method i 2020-02-11 2020-02-11 Office Ayush Sung 1.2.840.114 [id number] [facility] 13:49:58 14:04:58 Visit AMBULATOR 350.1.13.21 College Y 0.2.7.2.686 of [id number] Medi corine 300 e 2019-08-10 2019-08-10 Office Ayush Sung 1.2.840.114 [id number] [facility] 07:31:09 09:29:15 Visit AMBULATOR 350.1.13.21 College Y 0.2.7.2.686 of [id number] [facility] corine 300 e Results Test Description Test Time Test Comments Results Result Comments Source GLUCOSE BEDSIDE TESTING 2022-12-22 10:22:00 Test Item Value Reference Range Interpretation Comme nts GLUCOSE BEDSIDE TESTING (test code = GLUBED) 132 MG/DL 70-119 H GLUCOSE BEDSIDE [id number] 22:44:00 Test Item Value Reference Range Interpretation Comments GLUCOSE BEDSIDE TESTING 133 MG/DL 70-119 H Noti fied Nurse~ (test code = GLUBED) GLUCOSE BEDSIDE [id number] 15:57:00 Test Item Value Reference Range Interpretation Comments GLUCOSE BEDSIDE TESTING (test code 105 MG/DL 70-119 N = GLUBED) GLUCOSE BEDSIDE [id number] 11:46:00 Test Item Value Reference Range Interpretation Comments GLUCOSE BEDSIDE TESTING (test code 124 MG/DL 70-119 H = GLUBED) CBC W/MANUAL [id number] 08:35:00 Test Item Value Reference Range Interpretation Comments WHITE BLOOD CELL (test 37.8 K/mm3 4.1-12.1 H code = WBC) RED BLOOD CELL (test 2.55 M/mm3 3.8-5.5 L code = RBC) HEMOGLOBIN (test code = 8.0 G/DL 10.6-15.8 L HGB) HEMATOCRIT (test code = 24.7 % 31.8-47.4 L HCT) MEAN CELL VOLUME (test 96.9 fL 80.1-101.1 N code = MCV) MEAN CELL HGB (test code 31.4 pg 25.3-35.3 N = MCH) MEAN CELL HGB 32.4 G/DL 32.7-35.1 L CONCETRATION (test code = MCHC) RED CELL DISTRIBUTION 13.5 % 12.2-16.4 N WIDTH (test code = RDW) RED CELL DISTRIBUTION 47.3 fL 35.1-43.9 H WIDTH (test code = RDW-SD) PLATELET COUNT (test 85 K/mm3 155-337 L code = PLT) MEAN PLATELET VOLUME 11.4 fL 7.6-10.4 H (test code = MPV) GRANULOCYTE % (test code 9.4 % 37.8-82.6 L = GR%) IMMATURE GRANULOCYTE % 0.3 % 0.0-2.0 N (test code = IG%) LYMPHOCYTE % (test code 86.5 % 14.1-45.4 H = LY%) MONOCYTE % (test code = 3.0 % 2.5-11.7 N MO%) EOSINOPHIL % (test code 0.6 % 0.0-6.2 N = EO%) BASOPHIL % (test code = 0.2 % 0.0-2.6 N BA%) NUCLEATED RBC % (test 0.0 /100WBC% 0.0-1.0 N code = NRBC%) GRANULOCYTE # (test code 3.56 k/mm3 2.0-13.7 N = GR#) IMMATURE GRANULOCYTE # 0.10 K/mm3 0.00-0.03 H (test code = IG#) LYMPHOCYTE # (test code 32.65 K/mm3 0.6-3.8 H = LY#) MONOCYTE # (test code = 1.15 K/mm3 0.11-0.59 H MO#) EOSINOPHIL # (test code 0.21 K/mm3 0.0-0.4 N = EO#) BASOPHIL # (test code = 0.08 K/mm3 0.0-0.1 N BA#) NUCLEATED RBC # (test 0.00 K/mm3 0.00-0.05 N code = NRBC#) MANUAL DIFF REQUIRED MAN DIFF INDICATED CRITERIA (test code = MDIFF) DIFF/SCN WBC [id number] 08:35:00 Test Item Value Reference Range Interpretation Comments TOTAL CELLS COUNTED 100 #CELLS See_Comment [Automa alexi (test code = TCC) message] T he system which generated this result transmit alexi reference range : 100. The refere nce range was not u sed to interpret th is result as normal/abnormal . SEGMENTED 18 % 40-75 L NEUTROPHILS (test code = SEG) LYMPHOCYTE (test 77 % 12.6-43.5 H code = LYMPH) MORPHOLOGY COMMENT ON SCAN NORMAL RBCS (test code = MOC) PLATELET ESTIMATE MOD DECR ON SCAN ADEQUATE A (test code = PLTEST) ATYPICAL LYMPH (test 3 % 0-0 H code = ALYMPH) MONOCYTE (test code 1 % 4.2-12.7 L = MON) METAMYELOCYTE (test 1 % 0-2 N code = META) DIFFERENTIAL COMMENT AUTO DIFF SCAN COMM (test code = DC) CONFIRMED COMMENT OVALOCYTES (test FEW ON SCAN NONE code = OVAL) SMUDGE CELLS (test MODERATE ON SCAN NONE A code = SMUDG) PATHOLOGIST [id number] 08:35:00 Test Item Value Reference Range Interpretation Comments PATHOLOGIST INTERPRETATION (test code = CBCI) - XR CHEST 1 [id number] 06:57:00 [facility] : 1940 Sex: M FAX: Gurvinder Christine MD [phone] [place]: C St: ADM FAX: Ra Foreign Chung MD [phone] --------- Patient Name: RENETTA FERNANDEZ Unit No: [id number] EXAMS: CPT CODE: [id number] XR CHEST 1 V [id number] EXAM: - XR CHEST 1 V Location code:C3 HISTORY: post operative fever COMPARISON: 12/17/2022 IMPRESSION: Single AP view of the chest is provided. Left chest wall pacer device is similar. Bilateral pulmonary opacities are slightly diminished. There is no pneumothorax. No additional interval change. at 0657 Reported and signed by: Melvin Smart M.D. CC: Gurvinder Hernandez MD Dictated Date/Time: 12/21/2022 (0657)Technologist: Jesus Alberto Lin Transcribed Date/Time: 12/21/2022 (06) By: [email or web address] Orig Print D/T: S: 12/21/2022 (0701) ANTONIO Burnett NAME: [employer] [facility] IM[facility] PHYS: [id number] Gurvinder Smith [address] [place], [place] [address]VD : 1940 AGE: 82 SEX: Ros[place], [place] [address] LOC: B.443 W PHONE #: [phone] DATE: 12/21/2022 STATUS: ADM IN FAX #: [phone] RAD NO: DC Dt: PAGE 1 Signed ReportGLUCOSE BEDSIDE [id number] 05:38:00 Test Item Value Reference Range Interpretation Comments GLUCOSE BEDSIDE TESTING (test code 138 MG/DL 70-119 H = GLUBED) GLUCOSE BEDSIDE [id number] 21:45:00 Test Item Value Reference Range Interpretation Comments GLUCOSE BEDSIDE TESTING (test code 127 MG/DL 70-119 H = GLUBED) GLUCOSE BEDSIDE [id number] 11:38:00 Test Item Value Reference Range Interpretation Comments GLUCOSE BEDSIDE TESTING (test code 134 MG/DL 70-119 H = GLUBED) GLUCOSE BEDSIDE [id number] 06:37:00 Test Item Value Reference Range Interpretation Comments GLUCOSE BEDSIDE TESTING (test code 119 MG/DL 70-119 N = GLUBED) CBC W/MANUAL [id number] 06:17:00 Test Item Value Reference Range Interpretation Comments WHITE BLOOD CELL (test 34.5 K/mm3 4.1-12.1 H code = WBC) RED BLOOD CELL (test 2.67 M/mm3 3.8-5.5 L code = RBC) HEMOGLOBIN (test code = 8.4 G/DL 10.6-15.8 L HGB) HEMATOCRIT (test code = 25.7 % 31.8-47.4 L HCT) MEAN CELL VOLUME (test 96.3 fL 80.1-101.1 N code = MCV) MEAN CELL HGB (test code 31.5 pg 25.3-35.3 N = MCH) MEAN CELL HGB 32.7 G/DL 32.7-35.1 N CONCETRATION (test code = MCHC) RED CELL DISTRIBUTION 13.6 % 12.2-16.4 N WIDTH (test code = RDW) RED CELL DISTRIBUTION 48.1 fL 35.1-43.9 H WIDTH (test code = RDW-SD) PLATELET COUNT (test 70 K/mm3 155-337 L code = PLT) MEAN PLATELET VOLUME 11.3 fL 7.6-10.4 H (test code = MPV) GRANULOCYTE % (test code 11.7 % 37.8-82.6 L = GR%) IMMATURE GRANULOCYTE % 0.2 % 0.0-2.0 N (test code = IG%) LYMPHOCYTE % (test code 83.0 % 14.1-45.4 H = LY%) MONOCYTE % (test code = 4.2 % 2.5-11.7 N MO%) EOSINOPHIL % (test code 0.7 % 0.0-6.2 N = EO%) BASOPHIL % (test code = 0.2 % 0.0-2.6 N BA%) NUCLEATED RBC % (test 0.0 /100WBC% 0.0-1.0 N code = NRBC%) GRANULOCYTE # (test code 4.02 k/mm3 2.0-13.7 N = GR#) IMMATURE GRANULOCYTE # 0.08 K/mm3 0.00-0.03 H (test code = IG#) LYMPHOCYTE # (test code 28.59 K/mm3 0.6-3.8 H = LY#) MONOCYTE # (test code = 1.43 K/mm3 0.11-0.59 H MO#) EOSINOPHIL # (test code 0.25 K/mm3 0.0-0.4 N = EO#) BASOPHIL # (test code = 0.08 K/mm3 0.0-0.1 N BA#) NUCLEATED RBC # (test 0.00 K/mm3 0.00-0.05 N code = NRBC#) MANUAL DIFF REQUIRED MAN DIFF INDICATED CRITERIA (test code = MDIFF) DIFF/SCN WBC [id number] 06:17:00 Test Item Value Reference Range Interpretation Comments TOTAL CELLS COUNTED 100 #CELLS See_Comment [[employer] alexi (test code = TCC) message] T he system which generated this result transmitted reference range : 100. The refere nce range was not u sed to interpret th is result as normal/abnormal . SEGMENTED 13 % 40-75 L NEUTROPHILS (test code = SEG) LYMPHOCYTE (test 80 % 12.6-43.5 H code = LYMPH) MORPHOLOGY COMMENT ON SCAN NORMAL RBCS (test code = MOC) PLATELET ESTIMATE MOD DECR ON SCAN ADEQUATE A (test code = PLTEST) ATYPICAL LYMPH 3 % 0-0 H (test code = ALYMPH) MONOCYTE (test code 4 % 4.2-12.7 L = MON) OVALOCYTES (test FEW ON SCAN NONE code = OVAL) SMUDGE CELLS (test MODERATE ON SCAN NONE A code = SMUDG) PATHOLOGIST [id number] 06:17:00 Test Item Value Reference Range Interpretation Comments PATHOLOGIST INTERPRETATION (test code = CBCI) COMPREHENSIVE METABOLIC [id number] 04:31:00 Test Item Value Reference Range Interpretation Comments SODIUM (test code = 135.0 mmol/L 133-144 N NA) POTASSIUM (test 4.7 mmol/L 3.5-5.1 N code = K) CHLORIDE (test code 102 mmol/L 95-105 N = CL) CARBON DIOXIDE 30 mmol/L 21-32 N (test code = CO2) ANION GAP (test 3.0 GAP calc 4.0-15.0 L code = GAP) GLUCOSE (test code 137 MG/DL 70-110 H = GLU) BLOOD UREA NITROGEN 15 MG/DL 7-18 N (test code = BUN) GLOMERULAR 92 estGFR >60 The Glomerular FILTRATION RATE Filtration R ate is a (test code = GFR) calculated parameterbased on serum Creatinin e, patient age and sex. GFR valuesless than 60 mL/min/1.73 square meters are pro cative ofChronic Kidne y Disease. Values less than 15 mL/min/1.73squa re meters indicate Kidney failure. The calculation for GFR is based on the CK D-EPI (2020) calculat ion. This formulais race indifferent and is the recommended formula for GFR by the [employer] for Adults.The GFR will not calculate i f the sex is unknown or if thepatient's ag e is <18 years. CREATININE (test 0.70 MG/DL 0.55-1.30 N Results may be code = CREAT) depressed if p atient is takingN-Acetylc ystein e (NAC) and Metamizole (Dipyrone). TOTAL PROTEIN (test 4.9 G/DL 6.4-8.2 L code = PROT) ALBUMIN (test code 2.6 G/DL 3.4-5.0 L = ALB) ALBUMIN/GLOBULIN 1.1 RATIO 1.2-2.2 L RATIO (test code = A/G) CALCIUM (test code 8.0 MG/DL 8.5-10.1 L = CA) BILIRUBIN TOTAL 0.93 MG/DL 0.00-1.00 N (test code = BILT) BILIRUBIN DIRECT 0.18 MG/DL 0.00-0.30 N (test code = BILD) BILIRUBIN INDIRECT 0.75 MG/DL 0.2-1.3 N (test code = BILIND) SGOT/AST (test code 29 Unit/L 15-37 N = AST) SGPT/ALT (test code 16 Unit/L 12-78 N = ALT) ALKALINE 49 Unit/L 45-117 N PHOSPHATASE TOTAL (test code = ALKP) INDEX HEMOLYSIS 1 NORMAL <10 See_Comment [Automated message] (test code = MG Index/DL The system whic h HEMINDEX) generated this result transmitted ref erence range: 1 NORMAL . The reference range was not used to int erpret this result as normal/abnormal . INDEX ICTERIC (test 1 NORMAL <2 MG See_Comment [Auto mated message] code = ICTINDEX) Index/DL The system which generated this result transmitted ref erence range: 1 NORMAL . The reference range was not used to int erpret this result as normal/abnormal . INDEX LIPEMIA (test 1 NORMAL <50 See_Comment [Automa alexi message] code = LIPINDEX) MG Index/DL The system which generated this result transmitted ref erence range: 1 NORMAL . The reference range was not used to int erpret this result as normal/abnormal . GLUCOSE BEDSIDE [id number] 20:23:00 Test Item Value Reference Range Interpretation Comments GLUCOSE BEDSIDE TESTING (test code 148 MG/DL 70-119 H = GLUBED) CBC W/AUTO [id number] 07:22:00 Test Item Value Reference Range Interpretation Comments WHITE BLOOD CELL (test 36.4 K/mm3 4.1-12.1 H code = WBC) RED BLOOD CELL (test code 2.76 M/mm3 3.8-5.5 L = RBC) HEMOGLOBIN (test code = 8.6 G/DL 10.6-15.8 L HGB) HEMATOCRIT (test code = 26.7 % 31.8-47.4 L HCT) MEAN CELL VOLUME (test 96.7 fL 80.1-101.1 N code = MCV) MEAN CELL HGB (test code 31.2 pg 25.3-35.3 N = MCH) MEAN CELL HGB 32.2 G/DL 32.7-35.1 L CONCETRATION (test code = MCHC) RED CELL DISTRIBUTION 13.5 % 12.2-16.4 N WIDTH (test code = RDW) RED CELL DISTRIBUTION 47.6 fL 35.1-43.9 H WIDTH (test code = RDW-SD) PLATELET COUNT (test code 70 K/mm3 155-337 L = PLT) MEAN PLATELET VOLUME 11.3 fL 7.6-10.4 H (test code = MPV) GRANULOCYTE % (test code 12.4 % 37.8-82.6 L = GR%) IMMATURE GRANULOCYTE % 0.2 % 0.0-2.0 N (test code = IG%) LYMPHOCYTE % (test code = 84.8 % 14.1-45.4 H LY%) MONOCYTE % (test code = 2.2 % 2.5-11.7 L MO%) EOSINOPHIL % (test code = 0.2 % 0.0-6.2 N EO%) BASOPHIL % (test code = 0.2 % 0.0-2.6 N BA%) NUCLEATED RBC % (test 0.0 /100WBC% 0.0-1.0 N code = NRBC%) GRANULOCYTE # (test code 4.50 k/mm3 2.0-13.7 N = GR#) IMMATURE GRANULOCYTE # 0.09 K/mm3 0.00-0.03 H (test code = IG#) LYMPHOCYTE # (test code = 30.86 K/mm3 0.6-3.8 H LY#) MONOCYTE # (test code = 0.80 K/mm3 0.11-0.59 H MO#) EOSINOPHIL # (test code = 0.06 K/mm3 0.0-0.4 N EO#) BASOPHIL # (test code = 0.07 K/mm3 0.0-0.1 N BA#) NUCLEATED RBC # (test 0.00 K/mm3 0.00-0.05 N code = NRBC#) MANUAL DIFF REQUIRED CRITERIA (SCAN) CRITERIA (test code = MDIFF) DIFF/SCN DIFFERENTIAL [id number] 07:22:00 Test Item Value Reference Range Interpretation Comments MORPHOLOGY COMMENT (test ON SCAN NORMAL RBCS code = MOC) PLATELET ESTIMATE (test MOD DECR ON SCAN ADEQUATE A code = PLTEST) OVALOCYTES (test code = FEW ON SCAN NONE OVAL) SMUDGE CELLS (test code = SLIGHT ON SCAN NONE SMUDG) PLATELET MORPHOLOGY (test GIANT FEW ON SCAN NORMAL PLTS code = PLTMORPH) COMPREHENSIVE METABOLIC [id number] 06:02:00 Test Item Value Reference Range Interpretation Comments SODIUM (test code = 137.0 mmol/L 133-144 N NA) POTASSIUM (test 4.5 mmol/L 3.5-5.1 N code = K) CHLORIDE (test code 105 mmol/L 95-105 N = CL) CARBON DIOXIDE 29 mmol/L 21-32 N (test code = CO2) ANION GAP (test 3.0 GAP calc 4.0-15.0 L code = GAP) GLUCOSE (test code 174 MG/DL 70-110 H = GLU) BLOOD UREA NITROGEN 15 MG/DL 7-18 N (test code = BUN) GLOMERULAR 91 estGFR >60 The Glomerular FILTRATION RATE Filtration R ate is a (test code = GFR) calculated parameterbased on serum Creatinin e, patient age and sex. GFR valuesless than 60 mL/min/1.73 square meters are pro cative ofChronic Kidne y Disease. Values less than 15 mL/min/1.73squa re meters indicate Kidney failure. The calculation for GFR is based on the CK D-EPI (2020) calculat ion. This formulais race indifferent and is the recommended formula for GFR by the National Kidney Foundation for Adults.The GFR will not calculate i f the sex is unknown or if thepatient's ag e is <18 years. CREATININE (test 0.73 MG/DL 0.55-1.30 N Results may be code = CREAT) depressed if p atient is takingN-Acetylc ystein e (NAC) and Metamizole (Dipyrone). TOTAL PROTEIN (test 5.1 G/DL 6.4-8.2 L code = PROT) ALBUMIN (test code 2.6 G/DL 3.4-5.0 L = ALB) ALBUMIN/GLOBULIN 1.0 RATIO 1.2-2.2 L RATIO (test code = A/G) CALCIUM (test code 8.0 MG/DL 8.5-10.1 L = CA) BILIRUBIN TOTAL 0.94 MG/DL 0.00-1.00 N (test code = BILT) BILIRUBIN DIRECT 0.21 MG/DL 0.00-0.30 N (test code = BILD) BILIRUBIN INDIRECT 0.73 MG/DL 0.2-1.3 N (test code = BILIND) SGOT/AST (test code 23 Unit/L 15-37 N = AST) SGPT/ALT (test code 16 Unit/L 12-78 N = ALT) ALKALINE 48 Unit/L 45-117 N PHOSPHATASE TOTAL (test code = ALKP) INDEX HEMOLYSIS 1 NORMAL <10 See_Comment [Automated message] (test code = MG Index/DL The system Newser) generated this result transmitted ref erence range: 1 NORMAL . The reference range was not used to int erpret this result as normal/abnormal . INDEX ICTERIC (test 1 NORMAL <2 MG See_Comment [Auto mated message] code = ICTINDEX) Index/DL The system which generated this result transmitted ref erence range: 1 NORMAL . The reference range was not used to int erpret this result as normal/abnormal . INDEX LIPEMIA (test 1 NORMAL <50 See_Comment [Automa alexi message] code = LIPINDEX) MG Index/DL The system which generated this result transmitted ref erence range: 1 NORMAL . The reference range was not used to int erpret this result as normal/abnormal . - XR HIP W/PEL UNI 2+V [id number] 15:58:00 [facility] : 1940 Sex: M FAX: Alex Chen APRN [phone] [place]: St: ADM FAX: Ra Foreign Chung MD [phone] -------- Patient Name: RENETTA FERNANDEZUnit No: [id number] EXAMS: CPT CODE: [id number] XR HIP W/PEL UNI 2+[place] [address] STUDY: Hip radiograph HISTORY: LEFT HIP ORIF COMPARISON: 12/17/2022 TECHNIQUE: 5 views of the left hip. LOCATION: H19 FINDINGS/ IMPRESSION: There has been interval intramedullary kali and screw fixation of the left femur for an intertrochanteric fracture in near anatomic alignment. The components appear in appropriate position. There is no left femoral head dislocation. Prostatic brachytherapy seeds are noted. Left upper lateral thigh soft tissue swelling with overlying surgical skin hi are present. at 1558 Reported and signed by: Laith Gasca MD CC: Jennifer Mims Dictated Date/Time: 12/18/2022 (2339)Technologist: Magi Dawson Transcribed Date/Time: 12/18/2022 (6161) By: [email or web address] Orig Print D/T: S: 12/18/2022 (9918) [facility] Hortencia NAME: RENETTA FERNANDEZ [facility] PHYS: EDA - Alex Mims [address] [place], [place] [address]VD : 1940 AGE: 82 SEX: [place] [address] LOC: BUrban443 W PHONE #: [phone] EXAM DATE: 12/18/2022 STATUS: ADM IN FAX #: [phone] RAD NO: DC Dt: PAGE 1 Signed Report- XR HIP W/PEL UNI 1V [id number] 14:47:00 [facility] : 1940 Sex: M FAX: Ra Foreign Chung MD [phone] [place]: C St: ADM Patient Name: RENETTA FERNANDEZ Unit No: [id number] EXAMS: CPT CODE: [id number] XR HIP W/PEL UNI 1V 979[address] Location: [facility] Study: Intraoperative fluoroscopic images. FINDINGS/IMPRESSION: Intraoperative fluoroscopic images of the left femur ORIF was performed. Please note that I was not present for this procedure. Please refer to the operative notes for further details. Fluoroscopy time: 1 minute 19 seconds. Total cumulative dose: 10.089 mGy. at 1447 Reported and signed by: Laith Gasca MD CC: Shannan Gaona MD Dictated Date/Time: 12/18/2022 (6845)Technologist: Martha Hand Transcribed Date/Time: 12/18/2022 (6986) By: [email or web address] Orig Print D/T: S: 12/18/2022 (5857) ANTONIO Burnett NAME: JOHNATHONRENETTA [facility] PHYS: SUDHA.[place] - Jimenez Foreign Caba [address] : 1940 AGE: 82 SEX: Rosales [place], [place] [address] LOC: B.443 W PHONE #: [phone] EXAM DATE: 12/18/2022 STATUS: ADM IN FAX #: [phone] RAD NO: DC Dt: PAGE 1 Signed ReportVITAMIN D 1,40-[id number] 06:12:00 Test Item Value Reference Range Interpretation Comments VITAMIN D 1,25-DIHYDROXY (test code = [id number]) VITAMIN D [id number] 06:12:00 Test Item Value Reference Range Interpretation Comments VITAMIN D 46.7 ng/mL 30.0-100.0 Specimen was he molyzed. 25-HYDROXY (test Result may be adversely code = VITD25) affected.Lacie min D deficiency has been defined by the [place] ofMedicine and an Endocrine Socie ty practice guidel ine as alevel of serum 25-OH vitamin D less than 20 ng/mL (1,2).The Endocrine Society went on to further define vitamin Dinsufficiency as a level between 21 and 29 ng/mL (2).1. IOM (Ins titute of Medicine). 2010 . Dietary reference intak es for calcium and D. [place]: The Nationa l Academies Press .2. Marissa MF, Ethan NC, Naheed-Arti i [place]MAN, et al. Evaluation, treatment, and prevention of vitamin D de ficiency: an Endocrine So critical access hospital clinical practi ce guideline. JCEM . 2010; 96(7):1911-30.P erformed At: [facility] [address] [place], [place] [id number] Martin Boudreaux MD Ph:[phone] CBC W/AUTO [id number] 14:45:00 Test Item Value Reference Range Interpretation Comments WHITE BLOOD CELL (test 34.3 K/mm3 4.1-12.1 H code = WBC) RED BLOOD CELL (test code 3.63 M/mm3 3.8-5.5 L = RBC) HEMOGLOBIN (test code = 11.6 G/DL 10.6-15.8 N HGB) HEMATOCRIT (test code = 34.7 % 31.8-47.4 N HCT) MEAN CELL VOLUME (test 95.6 fL 80.1-101.1 N code = MCV) MEAN CELL HGB (test code 32.0 pg 25.3-35.3 N = MCH) MEAN CELL HGB 33.4 G/DL 32.7-35.1 N CONCETRATION (test code = MCHC) RED CELL DISTRIBUTION 13.8 % 12.2-16.4 N WIDTH (test code = RDW) RED CELL DISTRIBUTION 48.0 fL 35.1-43.9 H WIDTH (test code = RDW-SD) PLATELET COUNT (test code 77 K/mm3 155-337 L = PLT) MEAN PLATELET VOLUME 10.8 fL 7.6-10.4 H (test code = MPV) GRANULOCYTE % (test code 16.4 % 37.8-82.6 L = GR%) IMMATURE GRANULOCYTE % 0.2 % 0.0-2.0 N (test code = IG%) LYMPHOCYTE % (test code = 80.8 % 14.1-45.4 H LY%) MONOCYTE % (test code = 2.2 % 2.5-11.7 L MO%) EOSINOPHIL % (test code = 0.1 % 0.0-6.2 N EO%) BASOPHIL % (test code = 0.3 % 0.0-2.6 N BA%) NUCLEATED RBC % (test 0.1 /100WBC% 0.0-1.0 N code = NRBC%) GRANULOCYTE # (test code 5.62 k/mm3 2.0-13.7 N = GR#) IMMATURE GRANULOCYTE # 0.07 K/mm3 0.00-0.03 H (test code = IG#) LYMPHOCYTE # (test code = 27.70 K/mm3 0.6-3.8 H LY#) MONOCYTE # (test code = 0.76 K/mm3 0.11-0.59 H MO#) EOSINOPHIL # (test code = 0.04 K/mm3 0.0-0.4 N EO#) BASOPHIL # (test code = 0.09 K/mm3 0.0-0.1 N BA#) NUCLEATED RBC # (test 0.03 K/mm3 0.00-0.05 N code = NRBC#) MANUAL DIFF REQUIRED CRITERIA (SCAN) CRITERIA (test code = MDIFF) DIFF/SCN DIFFERENTIAL [id number] 14:45:00 Test Item Value Reference Range Interpretation Comments MORPHOLOGY COMMENT (test ON SCAN NORMAL RBCS code = MOC) PLATELET ESTIMATE (test code MOD DECR ON SCAN ADEQUATE A = PLTEST) SMUDGE CELLS (test code = SLIGHT ON SCAN NONE SMUDG) PLATELET MORPHOLOGY (test AGG.NONE ON SCAN NORMAL PLTS code = PLTMORPH) CBC W/MANUAL [id number] 12:48:00 Test Item Value Reference Range Interpretation Comments WHITE BLOOD CELL (test 42.4 K/mm3 4.1-12.1 H code = WBC) RED BLOOD CELL (test 3.64 M/mm3 3.8-5.5 L code = RBC) HEMOGLOBIN (test code = 11.8 G/DL 10.6-15.8 N HGB) HEMATOCRIT (test code = 35.1 % 31.8-47.4 N HCT) MEAN CELL VOLUME (test 96.4 fL 80.1-101.1 N code = MCV) MEAN CELL HGB (test code 32.4 pg 25.3-35.3 N = MCH) MEAN CELL HGB 33.6 G/DL 32.7-35.1 N CONCETRATION (test code = MCHC) RED CELL DISTRIBUTION 13.7 % 12.2-16.4 N WIDTH (test code = RDW) RED CELL DISTRIBUTION 48.1 fL 35.1-43.9 H WIDTH (test code = RDW-SD) PLATELET COUNT (test 78 K/mm3 155-337 L code = PLT) MEAN PLATELET VOLUME 10.6 fL 7.6-10.4 H (test code = MPV) GRANULOCYTE % (test code 11.5 % 37.8-82.6 L = GR%) IMMATURE GRANULOCYTE % 0.3 % 0.0-2.0 N (test code = IG%) LYMPHOCYTE % (test code 86.2 % 14.1-45.4 H = LY%) MONOCYTE % (test code = 1.4 % 2.5-11.7 L MO%) EOSINOPHIL % (test code 0.3 % 0.0-6.2 N = EO%) BASOPHIL % (test code = 0.3 % 0.0-2.6 N BA%) NUCLEATED RBC % (test 0.0 /100WBC% 0.0-1.0 N code = NRBC%) GRANULOCYTE # (test code 4.87 k/mm3 2.0-13.7 N = GR#) IMMATURE GRANULOCYTE # 0.14 K/mm3 0.00-0.03 H (test code = IG#) LYMPHOCYTE # (test code 36.57 K/mm3 0.6-3.8 H = LY#) MONOCYTE # (test code = 0.60 K/mm3 0.11-0.59 H MO#) EOSINOPHIL # (test code 0.14 K/mm3 0.0-0.4 N = EO#) BASOPHIL # (test code = 0.11 K/mm3 0.0-0.1 H BA#) NUCLEATED RBC # (test 0.00 K/mm3 0.00-0.05 N code = NRBC#) MANUAL DIFF REQUIRED MAN DIFF INDICATED CRITERIA (test code = MDIFF) DIFF/SCN WBC [id number] 12:48:00 Test Item Value Reference Range Interpretation Comments TOTAL CELLS COUNTED 100 #CELLS See_Comment [Automa alexi (test code = TCC) message] T he system which generated this result transmitted reference range : 100. The refere nce range was not u sed to interpret th is result as normal/abnormal . SEGMENTED 11 % 40-75 L NEUTROPHILS (test code = SEG) LYMPHOCYTE (test 84 % 12.6-43.5 H code = LYMPH) MORPHOLOGY COMMENT ON SCAN NORMAL RBCS (test code = MOC) PLATELET ESTIMATE MOD DECR ON SCAN ADEQUATE A (test code = PLTEST) ATYPICAL LYMPH 2 % 0-0 H (test code = ALYMPH) MONOCYTE (test code 2 % 4.2-12.7 L = MON) BASOPHIL (test code 1 % 0-2.6 N = BASO) OVALOCYTES (test FEW ON SCAN NONE code = OVAL) SMUDGE CELLS (test MODERATE ON SCAN NONE A code = SMUDG) PATHOLOGIST [id number] 12:48:00 Test Item Value Reference Range Interpretation Comments PATHOLOGIST REVIEW NOT Previously INTERPRETATION (test INDICATED reporte d result: code = CBCI) PNI Edited by: CHER on 12/17/22:1248 - XR FEMUR MIN 2 VW [id number] 05:31:00 [facility] : 1940 Sex: M FAX: Sixto Shah MD [phone] [place]: St: [facility] FAX: Ra Foreign Chung MD [phone] Patient Name: RENETTA FERNANDEZ UnitNo: [id number] EXAMS: CPT CODE: [id number] XR FEMUR MIN 2 [place] [address] Left Femur, 4 Views Location Code M12 History: fx Findings: There is a comminuted left femoral intertrochanteric fracture. There isosteopenia. The femoral head is intact. Remainder of the femur is unremarkable. No lytic or blastic lesions. Impression: Comminuted left femoral intertrochanteric fracture. at 0531 Reported and signed by: Khadra Austin M.D. CC: Sixto Ford MD Dictated Date/Time: 12/17/2022 (0531)Technologist: Kathleen Robles Transcribed Date/Time: 12/17/2022 (530) By: [email or web address] Orig Print D/T: S: 12/17/2022 (0534) ANTONIO Burnett NAME: [facility] PHYS: NOEMISixto Haley [address] : 1940 AGE: 82 SEX: Rosales [place], [place] [address] LOC: B.443 W PHONE #: [phone] EXAM DATE: 12/17/2022 STATUS: ADM IN FAX #: [phone] RAD NO: DC Dt: PAGE 1 Signed ReportCOMPREHENSIVE METABOLIC [id number] 04:37:00 Test Item Value Reference Range Interpretation Comments SODIUM (test code = 136.0 mmol/L 133-144 N NA) POTASSIUM (test 4.6 mmol/L 3.5-5.1 N code = K) CHLORIDE (test code 104 mmol/L 95-105 N = CL) CARBON DIOXIDE 27 mmol/L 21-32 N (test code = CO2) ANION GAP (test 5.0 GAP calc 4.0-15.0 N code = GAP) GLUCOSE (test code 143 MG/DL 70-110 H = GLU) BLOOD UREA NITROGEN 16 MG/DL 7-18 N (test code = BUN) GLOMERULAR 75 estGFR >60 The Glomerular FILTRATION RATE Filtration R ate is a (test code = GFR) calculated parameterbased on serum Creatinin e, patient age and sex. GFR valuesless than 60 mL/min/1.73 square meters are pro cative ofChronic Kidne y Disease. Values less than 15 mL/min/1.73squa re meters indicate Kidney failure. The calculation for GFR is based on the CK D-EPI (2020) calculat ion. This formulais race indifferent and is the recommended formula for GFR by the National Kidney Foundation for Adults.The GFR will not calculate i f the sex is unknown or if thepatient's ag e is <18 years. CREATININE (test 1.00 MG/DL 0.55-1.30 N Results may be code = CREAT) depressed if p atient is takingN-Acetylc ystein e (NAC) and Metamizole (Dipyrone). TOTAL PROTEIN (test 5.5 G/DL 6.4-8.2 L code = PROT) ALBUMIN (test code 3.1 G/DL 3.4-5.0 L = ALB) ALBUMIN/GLOBULIN 1.3 RATIO 1.2-2.2 N RATIO (test code = A/G) CALCIUM (test code 8.0 MG/DL 8.5-10.1 L = CA) BILIRUBIN TOTAL 0.62 MG/DL 0.00-1.00 N (test code = BILT) BILIRUBIN DIRECT 0.14 MG/DL 0.00-0.30 N (test code = BILD) BILIRUBIN INDIRECT 0.48 MG/DL 0.2-1.3 N (test code = BILIND) SGOT/AST (test code 35 Unit/L 15-37 N = AST) SGPT/ALT (test code 24 Unit/L 12-78 N = ALT) ALKALINE 63 Unit/L 45-117 N PHOSPHATASE TOTAL (test code = ALKP) INDEX HEMOLYSIS 4 SMALL 50-200 See_Comment A [Automate d message] (test code = MG Index/DL The system Soicos HEMINDSmartFocus) generated this result transmitted ref erence range: 1 NORMAL . The reference range was not used to int erpret this result as normal/abnormal . INDEX ICTERIC (test 1 NORMAL <2 MG See_Comment [Auto mated message] code = ICTINDEX) Index/DL The system which generated this result transmitted ref erence range: 1 NORMAL . The reference range was not used to int erpret this result as normal/abnormal . INDEX LIPEMIA (test 1 NORMAL <50 See_Comment [Automa alexi message] code = LIPINDEX) MG Index/DL The system which generated this result transmitted ref erence range: 1 NORMAL . The reference range was not used to int erpret this result as normal/abnormal . PROTHROMBIN [id number] 04:26:00 Test Item Value Reference Range Interpretation Comments PT PATIENT (test code 24.6 SECONDS 9.4-12.5 HH ON AT = PTP) 0424, B.LAB.MEB CALLED TO LILI BARAJAS. The report was confirmed by re ad back protocols Y,N: Y.COLLECTION THROUGH LINES T HAT HAVE BEEN PREVIOUSLY FLUSHEDWITH HEP BELIA SHOULD BE AVOID ED DUE TO POSSIBLE HEPARINCONTAMIN ATIO N. INTERNATIONAL NORMAL 2.21 INR Unit 0.88-1.13 H ------ RATIO (test code = --------- INR) ---- --Therapeutic r danie for INR is dependent upon the situation.2.0-3 .0 Prophylaxis / venous thromboembolism , Treatment of DV T, Acute myocardia l infarction stro ke prevention, Systemic emboli sm prevention in fibrillation3.0 -4.5 AMI recurrence prevention, Systemic emboli sm prevention in prosthetic hear t 3.0-5.4 AMI mortality reduc tion Specimen comments: with INR- CT PELVIS W/O [id number] 04:09:00 [facility] : 1940 Sex: M PatientName: RENETTA FERNANDEZ Unit No: [id number] EXAMS: CPT CODE: [id number] CT PELVIS W/O CONTRAST 28532 CTScan of the Pelvis Without Contrast Location Code M12 History: fall Technique: Axial and reconstructed coronal and sagittal scans were performed without IV contrast. Rotational 3-D reconstructions werealso performed. One or more of the following dose reduction techniques were used: Automated exposurecontrol, adjustment of the mA and/or kV according to patient size, and/or utilization of iterative reconstruction technique. FINDINGS: There is a comminuted and mildly impacted left femoral intertrochanteric fracture. The fracture fragments are widely distracted. Femoral neck and femoral head are intact. There is no pubic rami fractures. Pubic symphysis is unremarkable. Acetabulum and remainder of the structures including the sacrum are unremarkable. There is intramuscular edema of the proximal thigh muscles. There is no pelvic hematoma or free fluid. There is extensive and partially visualized retroperitoneal, iliac chain and bilateral inguinal lymphadenopathy with the largest single identifiablelymph node measuring 2.1 cm short axis. There is a large 5.6 cm left lower pole renal cystic lesion.There is suspected splenomegaly. IMPRESSION: Comminuted and impacted left femoral intertrochanteric fracture with distracted fragments. Intramuscular edema of the proximal thigh muscles. Extensive partially visualized retroperitoneal, iliac chain and bilateral inguinal chain lymphadenopathy with suspected splenomegaly. Follow-up complete CT of the abdomen and pelvis is recommended. at 0409 Reported and signed by: Khadra Austin M.D. CC: Ranjan Chaudhary MD Dictated Date/Time: 12/17/2022 (408) Technologist: Chadd GORDON CTDI: DLP: Trnscrpt: 12/17/2022 (040) [email or web address] ANTONIO Burnett NAME: JOHNATHON[address] PHYS: Ranjan Redd MD [place] [id number] : 1940 AGE: 82SEX: M [facility] PHONE #: [phone] EXAM DATE: 12/17/2022 STATUS: ADM IN FAX #: [phone] RAD #: D/C DT PAGE 1 Signed Report Patient Name: RENETTA FERNANDEZ Unit No: [id number] EXAMS: CPT CODE: [id number] CT PELVIS W/O CONTRAST 08577 (Continued) Orig Print D/T: S: 12/17/2022 (0412) ANTONIO Burnett NAME: JOHNATHON[address] PHYS: Ranjan Redd [place], [place] [address] : 1940 AGE: 82 SEX: M LOC: TO [place] PHONE #: [phone] EXAM DATE: 12/17/2022 STATUS: ADM IN FAX #: [phone] RAD #: D/C DT PAGE 2 Signed Report - CT HEAD/BRAIN W/O [id number] 03:49:00 [facility] : 1940 Sex: M PatientName: RENETTA FERNANDEZ Unit No: [id number] EXAMS: CPT CODE: [id number] CT HEAD/BRAIN W/O CONT 87300 CTScan of the Brain Without Contrast Location Code M12 History: Fell backwards, on Xorelto Technique: Scans were performed on a helical scanner pre IV contrast only. The study is limited secondary to lack of intravenous contrast, particularly for evaluation of masses. One or more of the following dose reduction techniques were used: Automated exposure control, adjustment of the mA and/or kV according to patient size, and/or utilization of iterative reconstruction technique. Findings: There is no hydrocephalus. Basal cisterns are patent. There is no intracranial hyperdense hemorrhage. There is no midline shift or mass effect. No effacement of the muhammad-white matter junction to indicate acute infarction. There are chronic ischemic white matter changes. There is no skull fracture. There are postsurgical changes in the right mastoid air cells. Impression: No acute intracranial CT findings. at 0349 Reported and signed by: Khadra Austin M.D. CC: Ranjan Chaudhary MD Dictated Date/Time: 12/17/2022 (034) Technologist: Chadd GORDON CTDI: DLP: Trnscrpt: 12/17/2022 (0349) [email or web address] ANTONIO Burnett NAME: RENETTA FERNANDEZ [address] [place] [address] PHYS: Ranjan Redd [place] [address] : 1940 AGE: 82 SEX: M LOC: B.ERS PHONE #: [phone] EXAM DATE: 12/17/2022 STATUS: PRE ER FAX #: [phone] RAD #: D/C DT PAGE 1 Signed Report Patient Name: RENETTA FERNANDEZ Unit No: [id number] EXAMS: CPT CODE: [id number] CT HEAD/BRAIN W/O CONT 63467 (Continued) Orig Print D/T: S: 12/17/2022 (0352) ANTONIO Burnett NAME: [address] PHYS: Ranjan [place]d [place] [address] : 1940 AGE: 82 SEX: M LOC: B.ERS PHONE #: [phone] EXAM DATE: 12/17/2022 STATUS: PRE ER FAX #: [phone] RAD #: D/C DT PAGE 2 Signed Report- XR CHEST 1 V 2022-12-17 03:47:00 [facility] JAC FERGUSONROEName: RENETTA FERNANDEZ : 1940 Sex: M FAX: Ranjan Womack MD [phone] [place]: E St: PRE Patient Name: RENETTA FERNANDEZ Unit No: [id number] EXAMS: CPT CODE: [id number] XR CHEST 1 V 39584 AP Portable Chest Location Code M12 HISTORY: Preop FINDINGS: There are coarse chronic-appearing bilateral interstitial markings without significant change from 11/29/2021. There is no consolidation, pleural effusion or pneumothorax. Cardiac silhouette is mildly enlarged and unchanged. Left-sided pacer is in place. IMPRESSION: No active pulmonary findings. at 0347 Reported and signed by: Khadra Austin M.D. CC: Ranjan Chaudhary MD Dictated Date/Time: 12/17/2022 (346)Technologist: aKthleen Robles Transcribed Date/Time: 12/17/2022 (346) By: [email or web address] Orig Print D/T: S: 12/17/2022 (035) ANTONIO Burnett NAME: RENETTA FERNANDEZ [address] [place] [address] PHYS: Ranjan Redd MD [place], [place] [address] : 1940 AGE: 82 SEX: M LOC: B.DRE PHONE #: [phone] EXAM DATE: 12/17/2022 STATUS: PRE ER FAX #: [phone] RAD NO: DC Dt: PAGE 1 Signed Report- XR HIP W/PEL UNI 2+V [id number] 03:45:00 [facility] RENET[facility] FERNANDEZ : 1940 Sex: M FAX: Ranjan Womack MD [phone] [place]: St: PRE Patient Name: RENETTA FERNANDEZ Unit No: [id number] EXAMS: CPT CODE: [id number] XR HIP W/PEL UNI 2+V LT [address] Left Hip, 3 Views Location Code M12 History: Fell on left hip with deformity Findings: There is a comminuted left femoral intertrochanteric fracture. Femoral head is intact. No definite pubic rami fractures seen. Impression: Comminuted left femoral intertrochanteric fracture. at 0345 Reported and signed by: Khadra Austin M.D. CC: Ranjan Chaudhary MD Dictated Date/Time: 12/17/2022 (034)Technologist: Kathleen Robles Transcribed Date/Time: 12/17/2022 (034) By: [email or web address] Orig Print D/T: S: 12/17/2022 (0349) [facility] [place] NAME: RENETTA FERNANDEZ [address] [place], [place] [address] PHYS: Ranjan Redd MD, [place] [address] : 1940 AGE: 82 SEX: M LOC: CRIS PHONE #: [phone] EXAM DATE: 12/17/2022 STATUS: PRE ER FAX #: [phone] RAD NO: DC Dt: PAGE 1 [address]2022-08-27 14:10:47 Test Item Value Reference Range Interpretation Comments Ventricular rate (test 55 code = 253) Atrial rate (test code = 42 255) QRSD interval (test code 168 = 260) QT interval (test code = 486 264) QTC interval (test code = 464 265) QRS axis 1 (test code = -74 268) T wave axis (test code = 81 270) EKG impression (test code Ventricular-paced = 273) rhythm-Electronicall y Signed By Bentley Bacon MD ([id number]) on 02/27/2022 9:10:43 AM [address]2022-08-27 14:10:47 Test Item Value Reference Range Interpretation Comments Ventricular rate (test 55 code = 253) Atrial rate (test code = 42 255) QRSD interval (test code 168 = 260) QT interval (test code = 486 264) QTC interval (test code = 464 265) QRS axis 1 (test code = -74 268) T wave axis (test code = 81 270) EKG impression (test code Ventricular-paced = 273) rhythm-Electronicall y Signed By Bentley Bacon MD ([id number]) on 02/27/2022 9:10:[address] [facility] W/O [id number] 07:26:00 Test Item Value Reference Range Interpretation Comments WHITE BLOOD CELL (test 34.4 K/MM3 3.8-9.8 SHERLEY Horn TO RN code = WBC) FEDEBRUMFIELD WBC=34. 4& READBACK ON 11/29/21 AT 065 5 BY Steve Kauffman RED BLOOD CELL (test 4.27 M/MM3 3.95-5.67 N code = RBC) HEMOGLOBIN (test code 13.7 G/DL 12.4-16.7 N = HGB) HEMATOCRIT (test code 41.6 % 35.9-49.5 N = HCT) MEAN CELL VOLUME (test 97 fL 81.7-96.1 H code = MCV) MEAN CELL HGB (test 32.1 pg 27.6-33.2 N code = MCH) MEAN CELL HGB 32.9 % 32.9-35.5 N CONCETRATION (test code = MCHC) RED CELL DISTRIBUTION 13.2 % 12.1-15.2 N WIDTH (test code = RDW) PLATELET COUNT (test 77 K/MM3 129-368 L code = PLT) NEUTROPHIL # (test 3.13 K/mm3 2.0-7.6 N code = NT#) IMMATURE GRANULOCYTE # 0.04 x10 3/uL 0-0.03 H (test code = IG#) LYMPHOCYTE # (test 28.77 K/mm3 1.0-3.8 H code = LY#) MONOCYTE # (test code 2.13 K/mm3 0.1-0.8 H = MO#) EOSINOPHIL # (test 0.17 K/mm3 0.0-0.2 N code = EO#) BASOPHIL # (test code 0.12 K/mm3 0.0-0.2 N = BA#) NUCLEATED RBC # (test 0.00 K/mm3 0.0-0.1 N code = NRBC#) WBC [id number] 07:26:00 Test Item Value Reference Range Interpretation Comments RBC MORPHOLOGY REQUIRED (test code NORMAL = RBCM) TOTAL CELLS COUNTED (test code = 130 #CELLS TCC) SEGMENTED NEUTROPHILS (test code = 20.7 % 36.2-73.8 L SEG) LYMPHOCYTE (test code = LYMPH) 63.1 % 12.9-45.1 H MONOCYTE (test code = MON) 4.5 % 0-11 N PLATELET ESTIMATE (test code = DECREASED ADEQUATE PLTEST) PLATELET MORPHOLOGY (test code = NORMAL NORMAL PLTMORPH) BAND NEUTROPHIL (test code = BAND) 0.0 % 0-10 N ATYPICAL LYMPH (test code = 11.7 % 0-0 H ALYMPH) SMUDGE CELLS (test code = SMUDG) MODERATE NONE BASIC METABOLIC [id number] 07:08:00 Test Item Value Reference Range Interpretation Comments SODIUM (test code = 138 MMOL/L 137-145 N NA) POTASSIUM (test code = 3.8 MMOL/L 3.5-5.1 N K) CHLORIDE (test code = 105 MMOL/L 98-107 N CL) CARBON DIOXIDE (test 26 MMOL/L 22-30 N code = CO2) GLUCOSE (test code = 108 MG/DL 74-106 H GLU) BLOOD UREA NITROGEN 14 MG/DL 9-20 N (test code = BUN) GLOMERULAR FILTRATION > 60 Report ing units: RATE (test code = GFR) ml/mi n/1.73 m2 (Modified MDRD Formula)Referen ce Range: > or = 6 0 ml/min/1.73 m2 CREATININE (test code 0.70 MG/DL 0.66-1.25 N = CREAT) CALCIUM (test code = 8.3 MG/DL 8.4-10.2 L CA) CBC W/AUTO [id number] 06:55:00 Test Item Value Reference Range Interpretation Comments WHITE BLOOD CELL (test 34.4 K/MM3 3.8-9.8 HH MOURA D TO RN code = WBC) FEDEBRUMFIELD WBC=34. 4& READBACK ON 11/29/21 AT 065 5 BY Steve Kauffman RED BLOOD CELL (test 4.27 M/MM3 3.95-5.67 N code = RBC) HEMOGLOBIN (test code 13.7 G/DL 12.4-16.7 N = HGB) HEMATOCRIT (test code 41.6 % 35.9-49.5 N = HCT) MEAN CELL VOLUME (test 97 fL 81.7-96.1 H code = MCV) MEAN CELL HGB (test 32.1 pg 27.6-33.2 N code = MCH) MEAN CELL HGB 32.9 % 32.9-35.5 N CONCETRATION (test code = MCHC) RED CELL DISTRIBUTION 13.2 % 12.1-15.2 N WIDTH (test code = RDW) PLATELET COUNT (test 77 K/MM3 129-368 L code = PLT) MEAN PLATELET VOLUME 11.1 fl 7.4-10.4 H (test code = MPV) NEUTROPHIL % (test 9.2 % 43-75 L code = NT%) IMMATURE GRANULOCYTE % 0.1 % 0.0-2.0 N (test code = IG%) LYMPHOCYTE % (test 83.7 % 14-44 H code = LY%) MONOCYTE % (test code 6.2 % 4-13 N = MO%) EOSINOPHIL % (test 0.5 % 0-6 N code = EO%) BASOPHIL % (test code 0.3 % 0-2 N = BA%) NUCLEATED RBC % (test 0.0 % 0-1.0 N code = NRBC%) NEUTROPHIL # (test 3.13 K/mm3 2.0-7.6 N code = NT#) IMMATURE GRANULOCYTE # 0.04 x10 3/uL 0-0.03 H (test code = IG#) LYMPHOCYTE # (test 28.77 K/mm3 1.0-3.8 H code = LY#) MONOCYTE # (test code 2.13 K/mm3 0.1-0.8 H = MO#) EOSINOPHIL # (test 0.17 K/mm3 0.0-0.2 N code = EO#) BASOPHIL # (test code 0.12 K/mm3 0.0-0.2 N = BA#) NUCLEATED RBC # (test 0.00 K/mm3 0.0-0.1 N code = NRBC#) - XR CHEST [id number] 06:35:00 [facility] : 1940 Sex: M Patient Name: RENETTA FERNANDEZ Unit No: [id number] EXAMS: CPT CODE: [id number] XR CHEST 1V 83614 C3 TIME OF STUDY: 11/29/2021 5:00 AM REASON FOR EXAM: S/P ICD COMPARISON: November 28, 2021 FINDINGS: AP view of the chestwas obtained. Support devices: Stable Lungs: Diffuse bilateral interstitial opacities are present. Pleura: No large pleural effusion or pneumothorax. Heart and Mediastinum: Stable cardiomegaly and calci fic atherosclerosis. Bones: Unchanged regional skeletal structures. IMPRESSION: 1. Unchanged chest radiograph. at 0635 Reported and signed by:Antoni Hassan MD CC: Lora Quezada MD Technologist: Julio C Arroyo, RT(R) Transcrpt Date/Tm/Trnsp: 11/29/2021 (0635) [email or web address] Orig Print D/T: S: 11/29/2021 (0639) [facility] NAME: RENETTA FERNANDEZ [id number] PHYS: L[place] [address] : 1940 AGE: 81 SEX: M LOC: Z.435 A PHONE #: [phone] EXAM DATE: 11/29/2021 STATUS: ADM IN FAX #: [phone] RADIOLOGY NO: PAGE 1 Signed Report- XR CHEST [id number] 11:22:00 [facility] : 1940 Sex: M Patient Name: RENETTA FERNANDEZ Unit No: [id number] EXAMS: CPT CODE: [id number] XR CHEST 1V 96845 Location Code: B2 CHEST AP HISTORY: Status post ICD COMPARISON: None available FINDINGS: Single lead pacemaker terminates in the right ventricle. Cardiomegaly is noted. Moderate central vascular congestion/interstitial edema. No sizable pleural effusion or pneumothorax. No gross osseous findings. IMPRESSION: Single lead pacemaker terminates in the right ventricle. Cardiomegaly. Moderate central vascular congestion/interstitial edema. at 1122 Reported and signed by: Karlene Blanco MD CC: Lora Quezada MD Technologist: Alexsandra Zacarias (RTR) Transcrpt Date/Tm/Trnsp: 11/28/2021 (1122) [email or web address] Orig Print D/T: S: 11/28/2021 (4271) [facility] [place] NAME: RENETTA FERNANDEZ [address] PHYS: [place] [address] : 1940 AGE: 81 SEX: M LOC: Z.DC4T B PHONE #: [phone] EXAM DATE: 11/28/2021 STATUS: ADM IN FAX #: [phone] RADIOLOGY NO: PAGE 1 Signed ReportBASIC METABOLIC [id number] 05:49:00 Test Item Value Reference Range Interpretation Comments SODIUM (test code = 137 MMOL/L 137-145 N NA) POTASSIUM (test code = 4.3 MMOL/L 3.5-5.1 N K) CHLORIDE (test code = 102 MMOL/L 98-107 N CL) CARBON DIOXIDE (test 28 MMOL/L 22-30 N code = CO2) GLUCOSE (test code = 115 MG/DL 74-106 H GLU) BLOOD UREA NITROGEN 20 MG/DL 9-20 N (test code = BUN) GLOMERULAR FILTRATION > 60 Report ing units: RATE (test code = GFR) ml/mi n/1.73 m2 (Modified MDRD Formula)Referen ce Range: > or = 6 0 ml/min/1.73 m2 CREATININE (test code 0.70 MG/DL 0.66-1.25 N = CREAT) CALCIUM (test code = 9.1 MG/DL 8.4-10.2 N CA) LIPID PROFILE (CORONARY RISK)2021-11-28 05:49:00 Test Item Value Reference Range Interpretation Comments TRIGLYCERIDES (test 119 MG/DL 150-199 L TRIGLYCE RIDES code = TRIG) REFERENCE RANGE:Normal: < 150 mg/dLBorderline High: 150-199 mg/dLHi gh: 200-499 mg/dLVe ry High: >=500 mg/ dL CHOLESTEROL (test code 138 MG/DL <200 = CHOL) HDL CHOLESTEROL (test 27 MG/DL 40-59 L code = HDL) LIPOPROTEIN LDL (test 90 MG/DL 0-99 N OPTI MAL.........<100 code = LDL) mg/dLNEAR OPTIMAL/ABOVE OPTIMAL........ .100-12 9 mg/dL BORDERL INE HIGH.........13 0-159 mg/dL HIGH.........16 0-189 mg/dL VERY HIGH.........>/ = 190 mg/dL [id number] 05:49:00 Test Item Value Reference Range Interpretation Comments MAGNESIUM (test code = MAG) 2.1 MG/DL 1.6-2.3 N COVID 19 Asymptomatic IH [id number] 05:46:00 Test Item Value Reference Range Interpretation Comments COVID 19 NEGATIVE Negative "Negative resul ts from Asymptomatic IH AG patients with symptom (test code = onset beyondfiv e days, COVNONPUIAG) should be treat ed as presumptive, andconfirmation with a molecular assay , if necessary forpa tient management may be performed. Nega tive results do notr ule out COVID-19 and sh ould not be used as the sole basisfor treatm ent or patient managem ent decisions, includinginfect ion control decisio ns. Negative result s should beconsidered in the context of a pa tients recent exposure s,history, and the presenc e of clinical signs and symptomsconsist ent with COVID-19.This t est detects both vi able andnon-viable S ARS-CoV and SARS CoV-2. Test performance dep endson the amount of virus (antigen) in the sample." CBC W/O [id number] 05:43:00 Test Item Value Reference Range Interpretation Comments WHITE BLOOD CELL (test 30.4 K/MM3 3.8-9.8 MOURA D RESULTS TO code = WBC) ADELAIDA BeverlyPreviously reported result : 30.4 K/EM8Nszxy d by: [id number] o n 11/28/21:0526 RED BLOOD CELL (test 4.27 M/MM3 3.95-5.67 N code = RBC) HEMOGLOBIN (test code 13.6 G/DL 12.4-16.7 N = HGB) HEMATOCRIT (test code 41.0 % 35.9-49.5 N = HCT) MEAN CELL VOLUME (test 96 fL 81.7-96.1 N code = MCV) MEAN CELL HGB (test 31.9 pg 27.6-33.2 N code = MCH) MEAN CELL HGB 33.2 % 32.9-35.5 N CONCETRATION (test code = MCHC) RED CELL DISTRIBUTION 13.4 % 12.1-15.2 N WIDTH (test code = RDW) PLATELET COUNT (test 89 K/MM3 129-368 L code = PLT) NEUTROPHIL # (test 3.29 K/mm3 2.0-7.6 N code = NT#) IMMATURE GRANULOCYTE # 0.04 x10 3/uL 0-0.03 H (test code = IG#) LYMPHOCYTE # (test 24.56 K/mm3 1.0-3.8 H code = LY#) MONOCYTE # (test code 2.21 K/mm3 0.1-0.8 H = MO#) EOSINOPHIL # (test 0.15 K/mm3 0.0-0.2 N code = EO#) BASOPHIL # (test code 0.10 K/mm3 0.0-0.2 N = BA#) NUCLEATED RBC # (test 0.00 K/mm3 0.0-0.1 N code = NRBC#) WBC [id number] 05:43:00 Test Item Value Reference Range Interpretation Comments RBC MORPHOLOGY REQUIRED (test code NORMAL = RBCM) TOTAL CELLS COUNTED (test code = 130 #CELLS TCC) SEGMENTED NEUTROPHILS (test code = 21.6 % 36.2-73.8 L SEG) LYMPHOCYTE (test code = LYMPH) 75.2 % 12.9-45.1 H MONOCYTE (test code = MON) 0.8 % 0-11 N PLATELET ESTIMATE (test code = DECREASED ADEQUATE PLTEST) PLATELET MORPHOLOGY (test code = NORMAL NORMAL PLTMORPH) BAND NEUTROPHIL (test code = BAND) 0.0 % 0-10 N ATYPICAL LYMPH (test code = 0.0 % 0-0 N ALYMPH) BASOPHIL (test code = BASO) 2.4 % 0-2 H PTT [id number] 05:34:00 Test Item Value Reference Range Interpretation Comments PTT ACTIVATED (test code = APTT) 33.6 SECONDS 26.2-35.4 N PROTHROMBIN [id number] 05:34:00 Test Item Value Reference Range Interpretation Comments PROTHROMBIN TIME 13.1 SECONDS 9.4-12.7 H PATIENT (test code = PTP) INTERNATIONAL NORMAL 1.2 0.86-1.14 H The INR is to be RATIO (test code = used only for INR) monitoring oral anticoagulantth erap y. INDICATION I NR VALUE ---- ---- ---- -------1. Prophylaxis, de ep venous thrombos is, including high risk surgery. 2.0 - 3.0 2. Prophylaxis, deep venous thrombosis, hip surgery, treatm ent for deep venous thrombosis or pulmonary prevention of systemic emboli sm in patients wit h valvular heart disease, atrial fibrillation, tissue heart va lve, or acute myocar dial infarction. 2.0 - 3.0 3. Multimedia Specialist al prosthesis hear t valves, recurre nt systemic emboli sm. 3.0 - 4.5 CBC W/AUTO [id number] 05:20:00 Test Item Value Reference Range Interpretation Comments WHITE BLOOD CELL (test code = 30.4 K/MM3 3.8-9.8 HH WBC) RED BLOOD CELL (test code = 4.27 M/MM3 3.95-5.67 N RBC) HEMOGLOBIN (test code = HGB) 13.6 G/DL 12.4-16.7 N HEMATOCRIT (test code = HCT) 41.0 % 35.9-49.5 N MEAN CELL VOLUME (test code = 96 fL 81.7-96.1 N MCV) MEAN CELL HGB (test code = MCH) 31.9 pg 27.6-33.2 N MEAN CELL HGB CONCETRATION 33.2 % 32.9-35.5 N (test code = MCHC) RED CELL DISTRIBUTION WIDTH 13.4 % 12.1-15.2 N (test code = RDW) PLATELET COUNT (test code = 89 K/MM3 129-368 L PLT) MEAN PLATELET VOLUME (test code 10.6 fl 7.4-10.4 H = MPV) NEUTROPHIL % (test code = NT%) 10.9 % 43-75 L IMMATURE GRANULOCYTE % (test 0.1 % 0.0-2.0 N code = IG%) LYMPHOCYTE % (test code = LY%) 80.9 % 14-44 H MONOCYTE % (test code = MO%) 7.3 % 4-13 N EOSINOPHIL % (test code = EO%) 0.5 % 0-6 N BASOPHIL % (test code = BA%) 0.3 % 0-2 N NUCLEATED RBC % (test code = 0.0 % 0-1.0 N NRBC%) NEUTROPHIL # (test code = NT#) 3.29 K/mm3 2.0-7.6 N IMMATURE GRANULOCYTE # (test 0.04 x10 3/uL 0-0.03 H code = IG#) LYMPHOCYTE # (test code = LY#) 24.56 K/mm3 1.0-3.8 H MONOCYTE # (test code = MO#) 2.21 K/mm3 0.1-0.8 H EOSINOPHIL # (test code = EO#) 0.15 K/mm3 0.0-0.2 N BASOPHIL # (test code = BA#) 0.10 K/mm3 0.0-0.2 N NUCLEATED RBC # (test code = 0.00 K/mm3 0.0-0.1 N NRBC#) POCT URINALYSIS [id number] 00:00:00 Test Item Value Reference Range Interpretation Comments COLOR UA (test code = 5778-6) Bev YELLOW/STRAW CLARITY UA (test code = 40718-6) Clear CLEAR GLUCOSE UA (test code = 5792-7) Negative NEGATIVE BILIRUBIN UA (test code = 5770-3) Negative NEGATIVE KETONES UA (test code = 46327-9) Negative NEGATIVE SPECIFIC GRAVITY UA (test code = 1.005-1.035 5811-5) BLOOD UA (test code = 5794-3) Negative NEGATIVE PH UA (test code = 5803-2) 5-9 PROTEIN UA (test code = 5804-0) Trace NEGATIVE UROBILINOGEN UA (test code = 0.02 E.U/DL NORMAL MG/DL 5818-0) LEUKOCYTE ESTERASE UA (test code Trace NEGATIVE = 5799-2) NITRITE UA (test code = 5802-4) Negative NEGATIVE REDUCING SUBSTANCES URINE (test negative NEGATIVE code = 94258-4) [id number] 11:52:26 Test Item Value Reference Range Interpretation Comments BLOOD UREA NITROGEN See_Comment Unless Otherwise (test code = 3091-6) Indicat ed, All Testing Performed At: [facility], [address] [place] [address] Laborator y Director: Mannie Freire M.D. CLIA Number [id number] Cap Accreditation N o. [Autom ated message] The sy stem which generated this result transmitted ref erence range: 8 - 23 M G/DL. The reference range was not used to interpr et this result as normal/abnormal . [facility] California[facility]AT[facility] [id number] 11:52:26 Test Item Value Reference Range Interpretation Comments CREATININE (test code = See_Comment L [Au tomated message] 2160-0) The system [employer] generated this result transmitted ref erence range: 0.80 - 1 .40 MG/DL. The refe rence range was not u sed to interpret this result as normal/abnor mal. EGFR AA (test code = See_Comment [Autom ated message] 28078-4) The system [employer] generated this result transmitted ref erence range: >60 ML/MIN/1.73. Th e reference range was not used to int erpret this result as normal/abnormal . EGFR (test code = See_Comment Unless Ot herwise 45912-3) Indicated, All Testing Perform ed At: Clinical Pathol ogy [facility], [address] [place] [address] Laborator y Director: Mannie Freire M.D. CLIA Number [id number] Cap Accreditation N o. [id number] [Autom ated message] The sy stem which generated this result transmit alexi reference range : >60 ML/MIN/1.73. Th e reference range was not used to int erpret this result as normal/abnormal . Lab Interpretation (test Abnormal code = 16621-1) [facility] URINALYS[facility] [id number] 00:00:00 Test Item Value Reference Range Interpretation Comments COLOR UA (test code = 5778-6) Yellow YELLOW/STRAW CLARITY UA (test code = Clear CLEAR 03987-4) GLUCOSE UA (test code = Negative NEGATIVE 5792-7) BILIRUBIN UA (test code = Negative NEGATIVE 5770-3) KETONES UA (test code = Negative NEGATIVE 21982-0) SPECIFIC GRAVITY UA (test 1.005-1.035 A code = 5811-5) BLOOD UA (test code = 5794-3) Hemolyzed Trace NEGATIVE PH UA (test code = 5803-2) 5-9 PROTEIN UA (test code = Negative NEGATIVE 5804-0) UROBILINOGEN UA (test code = 0.02 E.U/DL NORMAL MG/DL 5818-0) LEUKOCYTE ESTERASE UA (test Trace NEGATIVE code = 5799-2) NITRITE UA (test code = Negative NEGATIVE 5802-4) REDUCING SUBSTANCES URINE NEGATIVE (test code = 74355-0) Lab Interpretation (test code Abnormal = 32267-8) [facility] Notes Date/Time Note Provider Source 2022-12-22 05:23:00-00:00 [facility] Progress Note REPORT#:[id number] REPORT STATUS: Signed DATE:12/22/22 TIME: 522 PATIENT: RENETTA FERNANDEZ UNIT #: [id number] ROOM/BED: [address] : 40 AGE: 82 SEX: M ATTEND: Ra Foreign Gaona MD ADM AUTHOR: Paul Goodman DO R2 * ALL edits or amendments must be made on the [employer]/computer document * Paul Goodman 12/22/22 0523: Subjective HPI: Patient resting comfortably. No complaints or co ncerns. Updated patient on transfer process, states he thinks they are leav ing today. Patient reports: Yes: feeling better, pain co ntrolled. No: complaints, abdominal pain, back pain , chest pain, cough, fever, nausea, shortness of breath, vomiting. Review of Systems Free Text ROS Notes Free Text ROS Notes: per hPI Objective General VS/I O: 24 hour I O ending at 0700: 12/22 0700 12/21 1900 Intake Total 975.00 Output Total 660 500 Balance 315.00 -500 Intake, IV 200.00 Intake, Oral 775 Number 2 2 Bowel Movements Number 0 Incontinent Voids Number Voids 2 2 Output, Urine 660 500 Vital Signs: Date Time Temp Pulse Resp B/P B/P Pulse O2 O2 F low FiO2 Mean Ox Delivery Rate 12/22 0146 98.1 64 16 114/53 73.6 95 12/21 2229 98.4 62 17 106/57 73.6 91 12/21 1542 98.4 75 15 113/57 75.9 94 Room air 12/21 1206 65 16 123/62 82.1 97 12/21 0944 77 15 147/56 86.0 94 Room air PATIENT WEIGHT: Weight (lb): Weight (oz): Weight (kg): 100.000 Medications: Active Meds + DC'd Last 24 Hrs Cefdinir (OMNICEF) 300 MG Q12HR PO Doxycycline Monohydrate (MONODOX) 100 MG BID PO Rivaroxaban (XARELTO) 20 MG DAILY PO Docusate Sodium (COLACE 100 MG CAP) 100 MG BID P RN PRN PO Gabapentin (NEURONTIN) 300 MG BEDTIME PO Tamsulosin HCl (FLOMAX) 0.4 MG DAILY PO Morphine Sulfate (morphine PF SYRINGE) 2 MG Q6H PRN PRN IV Acetaminophen (TYLENOL) 650 MG Q4H PRN PRN PO Al Hydrox/Mg Hydrox/Simethicone (MAALOX PLUS) 30 ML Q4H PRN PRN PO Calcium Carbonate (TUMS) 1,000 MG DAILY PRN PRN PO Clonidine HCl (CATAPRES) 0.1 MG Q6H PRN PRN PO Dextrose/Sodium Chloride (DEXT 5% 0.45% NACL ) 1 ,000 ML .Q10H IV Guaifenesin/Dextromethorphan (ROBITUSSIN-DM) 10 ML QID PRN PRN PO Hydrocodone Bitart/Acetaminophen (NORCO 5/325 TA BLET) 1 TAB Q4H PRN PRN PO Hydrocodone Bitart/Acetaminophen (NORCO 10/325 T ABLET) 1 TAB Q4H PRN PRN PO Magnesium Sulfate/Dextrose (MAGNESIUM SULFATE 1G M/D5W 100ML) 100 ML DAILY PRN PRN IV Ondansetron HCl (ZOFRAN) 4 MG Q4H PRN PRN IV Polyethylene Glycol (MIRALAX) 17 GM DAILY PRN MI N PO Potassium Chloride (K-DUR) 40 MEQ DAILY PRN PRN PO Potassium Phos/Sodium Phos (PHOS-NAK PACKET) 2 P KT DAILY PRN PRN PO (CKD ) Simethicone (MYLICON) 160 MG Q6H PRN PRN PO Trazodone HCl (DESYREL) 50 MG BEDTIME PRN PRN PO Physical Exam General appearance: alert, awake, oriented Cardiovascular: regular rate rhythm, no murmur Respiratory: aerating well, clear to auscultatio n Neuro/PHYSICIAN OFFICE SPECIALIST: alert, oriented X 3 Diagnosis, Assessment Plan Hospital course to date: Presentation Pt is 82yo M with PMH of bradycardia, chronic af ib, sick sinus syndrome s/p pacemaker, on xarelto, chron ic lymphocytic leukemia (not on tx) here with lt hip pain after a fall that occur red this night of admission. Pt reports he was going to the bathroom in the dark and did not realize the door was closed. Ran into door and fell back onto lt hip. Since then has b een having pain, worse with movement. Reports hitting hi s head but denies LOC. Denies chest pain, abdominal pain, shortness of breath, or nausea/vomiting. P t is on xarelto but unsure of why he is taking it. Pt repo rts for CLL, he has been seeing heme/onc Dr. Flowers in [place] but they are just monitoring it. Free Text A P: Pt is 82yo M with PMH of bradycardia, chronic af ib, sick sinus syndrome s/p pacemaker, chronic lymphocytic leukemia (not on tx) admitted for lt hip fx Lt comminuted/impacted intertrochanteric hip fx S/p cephalomedullary nailing of L intertrochante merlin hip fracture (12/18) - ortho ([facility]) * wound dressing (dry/intact) * PT * resuming Xarelto * f/u outpt 2-3 weeks for suture removal - cardiology had been consulted for pre-op risk stratification - tele - echo: EF 60-65%, see report - pain control, gabapentin - PT/OT TTWB - Back on Xarelto, stopped Lovenox History of CLL Thrombocytopenia - heme/onc consulted ([facility]) * keep platelets >50k * DVT prophylaxis with Xarelto or Lovenox - leukocytosis noted - consider post op abx as pt is at risk of infection. monitor for any signs/sxs of infection - Post surgery platelets 70k. Keep above 50,000, transfuse as needed Anemia - 11.6 > 8.6 > 8.4 - continue to monitor - heme/onc per above Febrile Episode overnight, resolved - CXR reviewed - incentive spirometry overnight - continue to monitor - cough meds prn - omnicef/doxy on d/c Comorbidities: - continue home tamsulosin, and gabapentin; hold home lisinopril PPx: SCD, Xarelto Diet: regular Dispo: CM for placement - [facility], likely will d/c today Debby Guadalupe 12/22/22 1111: Attestations Teaching Physician Attestation F/U visit w/ resident: I saw the patient with the resident and . . . agree with the resident's findings and plan. Electronically Signed by Debby Guadalupe MD on 12/03 07/26 at 1112 at 1229 RPT #:[id number] END OF REPORT 2022-12-21 05:16:00-00:00 [facility] Progress Note REPORT#:[id number] REPORT STATUS: Signed DATE:12/21/22 TIME: 515 PATIENT: RENETTA FERNANDEZ UNIT #: [id number] ROOM/BED: [address] : 40 AGE: 82 SEX: M ATTEND: Ra Foreign Gaona MD ADM AUTHOR: Paul Goodman DO R2 * ALL edits or amendments must be made on the [employer]/computer document * Paul Goodman 12/21/22 0516: Subjective HPI: Patient resting comfortably. Reporting a cough a nd some hard stools. No other concerns or complaints. Patient reports: Yes: cough. No: complaints, back pain, bowel mov ement, chest pain, pain, shortness of breath, vomiting. Review of Systems Free Text ROS Notes Free Text ROS Notes: per HPI Objective General VS/I O: 24 hour I O ending at 0700: 12/21 0700 12/20 1900 Intake Total Output Total 750 Balance -750 Number 2 0 Bowel Movements Number Voids 2 Output, Urine 750 Vital Signs: Date Time Temp Pulse Resp B/P B/P Pulse O2 O2 F low FiO2 Mean Ox Delivery Rate 12/21 0529 98.8 69 16 107/60 75.9 97 12/21 0055 98.6 64 16 107/58 74.1 94 12/20 2319 67 94 12/20 2318 99.7 68 15 109/58 75.1 87 12/20 2210 92 Room air 12/20 2137 101.1 77 16 115/51 72.4 92 12/20 1128 66 16 116/63 80.6 95 Room air 12/20 1033 94 Room air 21 12/20 0832 97.7 65 16 95/51 66.1 94 Room air PATIENT WEIGHT: Weight (lb): Weight (oz): Weight (kg): 100.000 Medications: Active Meds + DC'd Last 24 Hrs Rivaroxaban (XARELTO) 20 MG DAILY PO Enoxaparin Sodium (LOVENOX) 30 MG ONCE ONE SUBQ (DC) Enoxaparin Sodium (LOVENOX) 30 MG Q12H SUBQ (DC) Gabapentin (NEURONTIN) 300 MG BEDTIME PO Tamsulosin HCl (FLOMAX) 0.4 MG DAILY PO Morphine Sulfate (morphine PF SYRINGE) 2 MG Q6H PRN PRN IV Acetaminophen (TYLENOL) 650 MG Q4H PRN PRN PO Al Hydrox/Mg Hydrox/Simethicone (MAALOX PLUS) 30 ML Q4H PRN PRN PO Calcium Carbonate (TUMS) 1,000 MG DAILY PRN PRN PO Clonidine HCl (CATAPRES) 0.1 MG Q6H PRN PRN PO Dextrose/Sodium Chloride (DEXT 5% 0.45% NACL ) 1 ,000 ML .Q10H IV Guaifenesin/Dextromethorphan (ROBITUSSIN-DM) 10 ML QID PRN PRN PO Hydrocodone Bitart/Acetaminophen (NORCO 5/325 TA BLET) 1 TAB Q4H PRN PRN PO Hydrocodone Bitart/Acetaminophen (NORCO 10/325 T ABLET) 1 TAB Q4H PRN PRN PO Magnesium Sulfate/Dextrose (MAGNESIUM SULFATE 1G M/D5W 100ML) 100 ML DAILY PRN PRN IV Ondansetron HCl (ZOFRAN) 4 MG Q4H PRN PRN IV Polyethylene Glycol (MIRALAX) 17 GM DAILY PRN MI N PO Potassium Chloride (K-DUR) 40 MEQ DAILY PRN PRN PO Potassium Phos/Sodium Phos (PHOS-NAK PACKET) 2 P KT DAILY PRN PRN PO (CKD ) Simethicone (MYLICON) 160 MG Q6H PRN PRN PO Trazodone HCl (DESYREL) 50 MG BEDTIME PRN PRN PO Physical Exam General appearance: alert, awake, oriented Cardiovascular: regular rate rhythm, no murmur Respiratory: aerating well, clear to auscultatio n Musculoskeletal: full range of motion Neuro/PHYSICIAN OFFICE SPECIALIST: alert, oriented X 3 Diagnosis, Assessment Plan Hospital course to date: Presentation Pt is 82yo M with PMH of bradycardia, chronic af ib, sick sinus syndrome s/p pacemaker, on xarelto, chron ic lymphocytic leukemia (not on tx) here with lt hip pain after a fall that occur red this night of admission. Pt reports he was going to the bathroom in the dark and did not realize the door was closed. Ran into door and fell back onto lt hip. Since then has b een having pain, worse with movement. Reports hitting hi s head but denies LOC. Denies chest pain, abdominal pain, shortness of breath, or nausea/vomiting. P t is on xarelto but unsure of why he is taking it. Pt repo rts for CLL, he has been seeing heme/onc Dr. Flowers in [place] but they are just monitoring it. Free Text A P: Pt is 82yo M with PMH of bradycardia, chronic af ib, sick sinus syndrome s/p pacemaker, chronic lymphocytic leukemia (not on tx) admitted for lt hip fx Lt comminuted/impacted intertrochanteric hip fx S/p cephalomedullary nailing of L intertrochante merlin hip fracture (12/18) - ortho ([facility]) * wound dressing (dry/intact) * PT * resuming Xarelto * f/u outpt 2-3 weeks for suture removal - cardiology had been consulted for pre-op risk stratification - tele - echo: EF 60-65%, see report - pain control, gabapentin - PT/OT TTWB - Back on Xarelto, stopped Lovenox History of CLL Thrombocytopenia - heme/onc consulted ([place]) * keep platelets >50k * DVT prophylaxis with Xarelto or Lovenox - leukocytosis noted - consider post op abx as pt is at risk of infection. monitor for any signs/sxs of infection - Post surgery platelets 70k. Keep above 50,000, transfuse as needed Anemia - 11.6 > 8.6 > 8.4 - continue to monitor - heme/onc per above Febrile Episode overnight, resolved - CXR reviewed - incentive spirometry overnight - continue to monitor - cough meds prn - omnicef/doxy on d/c Comorbidities: - continue home tamsulosin, and gabapentin; hold home lisinopril PPx: SCD, Xarelto Diet: regular Dispo: CM for placement - [facility] Debby Guadalupe 12/21/22 1847: Attestations Teaching Physician Attestation F/U visit w/ resident: I saw the patient with the resident and . . . agree with the resident's findings and plan. at 1033 Electronically Signed by Debby Guadalupe MD on 12/03 at 1850 RPT #:[id number] END OF REPORT 2022-12-20 08:04:00-00:00 [facility] Gabriel/Oncology Progress Note REPORT#:[id number] REPORT STATUS: Signed DATE:12/20/22 TIME: 803 PATIENT: RENETTA FERNANDEZ UNIT #: [id number] ROOM/BED: [address] : 40 AGE: 82 SEX: M ATTEND: Ra Foreign Gaona MD ADM AUTHOR: Ney Bryant MD * ALL edits or amendments must be made on the [employer]/computer document * Subjective Chief complaint: no events overnight no bleeding Objective General VS: Vital Signs Date Temp Pulse Resp B/P B/P Mean Pulse Ox FiO2 12/19-12/20 98.1-98.8 61-75 14-16 90-114/44-63 58.9-80 91-94 21 Last Documented: Result Date Time Pulse Ox 91 12/20 625 B/P 98/53 12/20 625 B/P Mean 67.9 12/20 625 Pulse 66 12/20 06 Resp 16 12/20 06 FiO2 21 12/20 0309 O2 Delivery Room air 12/20 0309 Temp 98.8 12/19 2327 O2 Flow Rate 2 12/18 2200 PATIENT WEIGHT: Weight (lb): Weight (oz): Weight (kg): 100.000 Medications: Active Meds + DC'd Last 24 Hrs Enoxaparin Sodium (LOVENOX) 30 MG Q12H SUBQ Bisacodyl (DULCOLAX) 10 MG NOW ONE RECTAL (DC) Gabapentin (NEURONTIN) 300 MG BEDTIME PO Tamsulosin HCl (FLOMAX) 0.4 MG DAILY PO Morphine Sulfate (morphine PF SYRINGE) 2 MG Q6H PRN PRN IV Acetaminophen (TYLENOL) 650 MG Q4H PRN PRN PO Al Hydrox/Mg Hydrox/Simethicone (MAALOX PLUS) 30 ML Q4H PRN PRN PO Calcium Carbonate (TUMS) 1,000 MG DAILY PRN PRN PO Clonidine HCl (CATAPRES) 0.1 MG Q6H PRN PRN PO Dextrose/Sodium Chloride (DEXT 5% 0.45% NACL ) 1 ,000 ML .Q10H IV Guaifenesin/Dextromethorphan (ROBITUSSIN-DM) 10 ML QID PRN PRN PO Hydrocodone Bitart/Acetaminophen (NORCO 5/325 TA BLET) 1 TAB Q4H PRN PRN PO Hydrocodone Bitart/Acetaminophen (NORCO 10/325 T ABLET) 1 TAB Q4H PRN PRN PO Magnesium Sulfate/Dextrose (MAGNESIUM SULFATE 1G M/D5W 100ML) 100 ML DAILY PRN PRN IV Ondansetron HCl (ZOFRAN) 4 MG Q4H PRN PRN IV Polyethylene Glycol (MIRALAX) 17 GM DAILY PRN MI N PO Potassium Chloride (K-DUR) 40 MEQ DAILY PRN PRN PO Potassium Phos/Sodium Phos (PHOS-NAK PACKET) 2 P KT DAILY PRN PRN PO (CKD ) Simethicone (MYLICON) 160 MG Q6H PRN PRN PO Trazodone HCl (DESYREL) 50 MG BEDTIME PRN PRN PO Physical Exam General appearance: obese, alert, awake, oriente d, no acute distress Cardiovascular: regular rate and rhythm, normal heart sounds, normal S1/S2, no gallop, no murmur Respiratory: aerating well, clear to auscultatio n, symmetric expansion, no distress Abdomen: organomegaly (+ spl een edge palpated), non-tender, normal bowel sounds, soft, no distention, no guarding, no rebound Extremities: no edema Lymphatics: left axillary lad, b/l cervical lad Results Findings/Data: Laboratory Tests 12/20/22302: [Embedded Image Not Available] Laboratory Tests 12/20 Chemistry Sodium (133 - 144 mmol/L) 135.0 Potassium (3.5 - 5.1 mmol/L) 4.7 Chloride (95 - 105 mmol/L) 102 Carbon Dioxide (21 - 32 mmol/L) 30 Anion Gap (4.0 - 15.0 GAP calc) 3.0 L BUN (7 - 18 MG/DL) 15 Creatinine (0.55 - 1.30 MG/DL) 0.70 Glomerular Filtr Rate (>60 estGFR) 92 Glucose (70 - 110 MG/DL) 137 H POC Glucose (70 - 119 MG/DL) 119 148 H Calcium (8.5 - 10.1 MG/DL) 8.0 L Total Bilirubin (0.00 - 1.00 MG/DL) 0.93 Direct Bilirubin (0.00 - 0.30 MG/DL) 0.18 Indirect Bilirubin (0.2 - 1.3 MG/DL) 0.75 AST (15 - 37 Unit/L) 29 ALT (12 - 78 Unit/L) 16 Total Alk Phosphatase (45 - 117 Unit/L) 49 Total Protein (6.4 - 8.2 G/DL) 4.9 L Albumin (3.4 - 5.0 G/DL) 2.6 L Albumin/Globulin Ratio (1.2 - 2.2 RATIO) 1.1 L Specimen Appearance (1 NORMAL Index/DL) 1 SIMON L <2 MG Specimen Hemolysis (1 NORMAL Index/DL) 1 NORMAL <10 MG Laboratory Tests 12/20 302 Hematology WBC (4.1 - 12.1 K/mm3) 34.5 H RBC (3.8 - 5.5 M/mm3) 2.67 L Hgb (10.6 - 15.8 G/DL) 8.4 L Hct (31.8 - 47.4 %) 25.7 L MCV (80.1 - 101.1 fL) 96.3 MCH (25.3 - 35.3 pg) 31.5 MCHC (32.7 - 35.1 G/DL) 32.7 RDW (12.2 - 16.4 %) 13.6 Plt Count (155 - 337 K/mm3) 70 L MPV (7.6 - 10.4 fL) 11.3 H Gran % (37.8 - 82.6 %) 11.7 L Lymph % (Auto) (14.1 - 45.4 %) 83.0 H Wood % (Auto) (2.5 - 11.7 %) 4.2 Eos % (Auto) (0.0 - 6.2 %) 0.7 Baso % (Auto) (0.0 - 2.6 %) 0.2 Gran # (2.0 - 13.7 k/mm3) 4.02 Lymph # (Auto) (0.6 - 3.8 K/mm3) 28.59 H Wood # (Auto) (0.11 - 0.59 K/mm3) 1.43 H Eos # (Auto) (0.0 - 0.4 K/mm3) 0.25 Baso # (Auto) (0.0 - 0.1 K/mm3) 0.08 Add Manual Diff (CRITERIA DIFF/SCN) MAN DIFF IN DICATED Total Counted (100 #CELLS) 100 Immature Gran % (0.0 - 2.0 %) 0.2 Seg Neutrophils % (40 - 75 %) 13 L Lymphocytes % (Manual) (12.6 - 43.5 %) 80 H Atypical Lymphs % (0 - 0 %) 3 H Monocytes % (Manual) (4.2 - 12.7 %) 4 L Nucleated RBC % (0.0 - 1.0 /100WBC%) 0.0 Nucleated RBCs # (0.00 - 0.05 K/mm3) 0.00 Smudge Cells (NONE ON SCAN) MODERATE H Platelet Estimate (ADEQUATE ON SCAN) MOD DECR L Ovalocytes (NONE ON SCAN) FEW Diagnosis, Assessment Plan Problem List/A P: 1. Chronic lymphocytic leukemia 2. Thrombocytopenia Free Text DxA P Notes Free Text DxA P Notes: 1) CLL - currently on observation by primary heme-onc i [facility] - no acute interventions 2) thrombocytopenia - due to cll - has palpable spleen and due to sequestration - no interventions needed discussed with the patient and the daughter will follow with you at 0807 RPT #:[id number] END OF REPORT 2022-12-20 05:27:00-00:00 [facility] ([facility] Family Medicine Progress Note REPORT#:[id number] REPORT STATUS: Signed DATE:12/20/22 TIME: 526 PATIENT: RENETTA FERNANDEZ UNIT #: [id number] ROOM/BED: [address] : 40 AGE: 82 SEX: M ATTEND: Ra Foreign Gaona MD ADM AUTHOR: Paul Goodman DO R2 * ALL edits or amendments must be made on the [employer]/computer document * Paul Goodman 12/20/22526: Subjective HPI: Resting comfortably. Reports some soreness in L hip. No other complaints or concerns. Discussed plan of care thus far with sylvia davis at bedside. Patient reports: Yes: pain controlled. No: complaints, chest pain , fever, nausea, shortness of breath, vomiting. Review of Systems Free Text ROS Notes Free Text ROS Notes: per HPI Objective General VS/I O: 24 hour I O ending at 0700: 12/20 0700 12/19 1900 Intake Total Output Total 600 Balance -600 Number 3 0 Bowel Movements Number 2 Incontinent Voids Output, Urine 600 Vital Signs: Date Time Temp Pulse Resp B/P B/P Pulse O2 O2 F low FiO2 Mean Ox Delivery Rate 12/20 0626 66 16 98/53 67.9 91 12/20 0309 94 Room air 21 12/19 2327 98.8 73 15 110/56 73.9 92 12/19 1920 98.1 75 14 114/63 80 94 12/19 1235 98.2 61 14 90/44 58.9 91 PATIENT WEIGHT: Weight (lb): Weight (oz): Weight (kg): 100.000 Medications: Active Meds + DC'd Last 24 Hrs Enoxaparin Sodium (LOVENOX) 30 MG Q12H SUBQ Bisacodyl (DULCOLAX) 10 MG NOW ONE RECTAL (DC) Gabapentin (NEURONTIN) 300 MG BEDTIME PO Tamsulosin HCl (FLOMAX) 0.4 MG DAILY PO Morphine Sulfate (morphine PF SYRINGE) 2 MG Q6H PRN PRN IV Acetaminophen (TYLENOL) 650 MG Q4H PRN PRN PO Al Hydrox/Mg Hydrox/Simethicone (MAALOX PLUS) 30 ML Q4H PRN PRN PO Calcium Carbonate (TUMS) 1,000 MG DAILY PRN PRN PO Clonidine HCl (CATAPRES) 0.1 MG Q6H PRN PRN PO Dextrose/Sodium Chloride (DEXT 5% 0.45% NACL ) 1 ,000 ML .Q10H IV Guaifenesin/Dextromethorphan (ROBITUSSIN-DM) 10 ML QID PRN PRN PO Hydrocodone Bitart/Acetaminophen (NORCO 5/325 TA BLET) 1 TAB Q4H PRN PRN PO Hydrocodone Bitart/Acetaminophen (NORCO 10/325 T ABLET) 1 TAB Q4H PRN PRN PO Magnesium Sulfate/Dextrose (MAGNESIUM SULFATE 1G M/D5W 100ML) 100 ML DAILY PRN PRN IV Ondansetron HCl (ZOFRAN) 4 MG Q4H PRN PRN IV Polyethylene Glycol (MIRALAX) 17 GM DAILY PRN MI N PO Potassium Chloride (K-DUR) 40 MEQ DAILY PRN PRN PO Potassium Phos/Sodium Phos (PHOS-NAK PACKET) 2 P KT DAILY PRN PRN PO (CKD ) Simethicone (MYLICON) 160 MG Q6H PRN PRN PO Trazodone HCl (DESYREL) 50 MG BEDTIME PRN PRN P O Physical Exam General appearance: alert, awake, oriented Cardiovascular: regular rate rhythm, no murmur Respiratory: aerating well, clear to auscultatio n Neuro/PHYSICIAN OFFICE SPECIALIST: alert, oriented X 3 Results Findings/Data: Laboratory Tests 12/20 12/20 12/19 7171 [id number] 2011 Chemistry Sodium (133 - 144 mmol/L) 135.0 Potassium (3.5 - 5.1 mmol/L) 4.7 Chloride (95 - 105 mmol/L) 102 Carbon Dioxide (21 - 32 mmol/L) 30 Anion Gap (4.0 - 15.0 GAP calc) 3.0 L BUN (7 - 18 MG/DL) 15 Creatinine (0.55 - 1.30 MG/DL) 0.70 Glomerular Filtr Rate (>60 estGFR) 92 Glucose (70 - 110 MG/DL) 137 H POC Glucose (70 - 119 MG/DL) 119 148 H Calcium (8.5 - 10.1 MG/DL) 8.0 L Total Bilirubin (0.00 - 1.00 MG/DL) 0.93 Direct Bilirubin (0.00 - 0.30 MG/DL) 0.18 Indirect Bilirubin (0.2 - 1.3 MG/DL) 0.75 AST (15 - 37 Unit/L) 29 ALT (12 - 78 Unit/L) 16 Total Alk Phosphatase (45 - 117 Unit/L) 49 Total Protein (6.4 - 8.2 G/DL) 4.9 L Albumin (3.4 - 5.0 G/DL) 2.6 L Albumin/Globulin Ratio (1.2 - 2.2 RATIO) 1.1 L Specimen Appearance (1 NORMAL Index/DL) 1 SIMON L <2 MG Specimen Hemolysis (1 NORMAL Index/DL) 1 NORMAL <10 MG Laboratory Tests 12/20 0303 Hematology WBC (4.1 - 12.1 K/mm3) 34.5 H RBC (3.8 - 5.5 M/mm3) 2.67 L Hgb (10.6 - 15.8 G/DL) 8.4 L Hct (31.8 - 47.4 %) 25.7 L MCV (80.1 - 101.1 fL) 96.3 MCH (25.3 - 35.3 pg) 31.5 MCHC (32.7 - 35.1 G/DL) 32.7 RDW (12.2 - 16.4 %) 13.6 Plt Count (155 - 337 K/mm3) 70 L MPV (7.6 - 10.4 fL) 11.3 H Gran % (37.8 - 82.6 %) 11.7 L Lymph % (Auto) (14.1 - 45.4 %) 83.0 H Wood % (Auto) (2.5 - 11.7 %) 4.2 Eos % (Auto) (0.0 - 6.2 %) 0.7 Baso % (Auto) (0.0 - 2.6 %) 0.2 Gran # (2.0 - 13.7 k/mm3) 4.02 Lymph # (Auto) (0.6 - 3.8 K/mm3) 28.59 H Wood # (Auto) (0.11 - 0.59 K/mm3) 1.43 H Eos # (Auto) (0.0 - 0.4 K/mm3) 0.25 Baso # (Auto) (0.0 - 0.1 K/mm3) 0.08 Add Manual Diff (CRITERIA DIFF/SCN) MAN DIFF IN DICATED Total Counted (100 #CELLS) 100 Immature Gran % (0.0 - 2.0 %) 0.2 Seg Neutrophils % (40 - 75 %) 13 L Lymphocytes % (Manual) (12.6 - 43.5 %) 80 H Atypical Lymphs % (0 - 0 %) 3 H Monocytes % (Manual) (4.2 - 12.7 %) 4 L Nucleated RBC % (0.0 - 1.0 /100WBC%) 0.0 Nucleated RBCs # (0.00 - 0.05 K/mm3) 0.00 Smudge Cells (NONE ON SCAN) MODERATE H Platelet Estimate (ADEQUATE ON SCAN) MOD DECR L Ovalocytes (NONE ON SCAN) FEW Diagnosis, Assessment Plan Hospital course to date: Presentation Pt is 82yo M with PMH of bradycardia, chronic af ib, sick sinus syndrome s/p pacemaker, on xarelto, chron ic lymphocytic leukemia (not on tx) here with lt hip pain after a fall that occur red this night of admission. Pt reports he was going to the bathroom in the dark and did not realize the door was closed. Ran into door and fell back onto lt hip. Since then has b een having pain, worse with movement. Reports hitting hi s head but denies LOC. Denies chest pain, abdominal pain, shortness of breath, or nausea/vomiting. P t is on xarelto but unsure of why he is taking it. Pt repo rts for CLL, he has been seeing heme/onc Dr. Flowers in [place] but they are just monitoring it. Free Text A P: Pt is 82yo M with PMH of bradycardia, chronic af ib, sick sinus syndrome s/p pacemaker, chronic lymphocytic leukemia (not on tx) admitted for lt hip fx Lt comminuted/impacted intertrochanteric hip fx S/p cephalomedullary nailing of L intertrochante merlin hip fracture (12/18) - ortho ([facility]) * wound dressing (dry/intact) * PT * resume Xarelto POD #1 * f/u outpt 2-3 weeks for suture removal - cardiology for pre-op risk stratification - tele - echo: EF 60-65%, see report - pain control, gabapentin - PT/OT TTWB - Lovenox 30mg bid * plan to d/c on xarelto History of CLL Thrombocytopenia - heme/onc consulted ([place]) * keep platelets >50k * DVT prophylaxis with Xarelto or Lovenox - leukocytosis noted - consider post op abx as pt is at risk of infection. monitor for any signs/sxs of infection - Post surgery platelets 70k. Keep above 50,000, transfuse as needed Anemia - 11.6 > 8.6 > 8.4 - continue to monitor - heme/onc per above Comorbidities: - continue home tamsulosin, and gabapentin; hold home lisinopril PPx: SCD, hold xarelto, lovenox Diet: regular Dispo: specialist recs, CM, PT Debby Guadalupe 12/20/22 1630: Attestations Teaching Physician Attestation F/U visit w/ resident: I saw the patient with the resident and . . . agree with the resident's findings and plan. at 1047 Electronically Signed by Debby Guadalupe MD on 12/02 03/26 at 1635 RPT #:[id number] END OF REPORT 2022-12-19 09:46:00-00:00 [facility] ([facility] Orthopaedic Progress Note REPORT#:[id number] REPORT STATUS: Signed DATE:12/19/22 TIME: 945 PATIENT: RENETTA FERNANDEZ UNIT #: [id number] ROOM/BED: [address] : 40 AGE: 82 SEX: M ATTEND: Ra Foreign Gaona MD ADM AUTHOR: Alex Mims APR PLUMBING INSTRUCTOR * ALL edits or amendments must be made on the el ectronic/computer document * Subjective Comments: 82-year-old male POD 1 cephalomedullary nailing of left intertrochanteric hip fracture. Patient states that pain is we ll controlled. Previous days procedure described at length, all questions answered. Mary raphael will undergo physical therapy evaluation / treatment today. Plan of ca re and projected outcome reviewed, patient confirms understanding. Objective VS: Last Documented: Result Date Time Pulse Ox 94 12/19 0530 B/P 95/52 12/19 0530 B/P Mean 66.0 12/19 0530 Temp 97.5 12/19 0630 Pulse 56 12/19 0630 Resp 14 12/19 06 O2 Flow Rate 2 12/18 2200 FiO2 28 12/18 171 O2 Delivery Nasal cannula 12/18 171 PATIENT WEIGHT: Weight (lb): Weight (oz): Weight (kg): 100.000 Medications: Active Meds + DC'd Last 24 Hrs Enoxaparin Sodium (LOVENOX) 30 MG Q12H SUBQ Cefazolin Sodium (ANCEF 1 GM) 2 GM Q8HR IV (DC) Sterile Water (STERILE WATER) 20 ML Q8HR IV (DC) Dexamethasone Sodium Phosphate (DECADRON 4MG/ML) 0 .STK-MED ONE .ROUTE ( DC) Ondansetron HCl (ZOFRAN) 0 .STK-MED ONE .ROUTE ( DC) Albumin Human (ALBUMINAR-5) 250 ML .STK-MED ONE IV (DC) Acetaminophen (TYLENOL) 650 MG PACU ONCE PO (DC) Albuterol Sulfate (PROVENTIL NEB) 2.5 MG PACU ON CE PRN PRN NEB (DC) Dexamethasone Sodium Phosphate (DECADRON 4MG/ML) 4 MG PACU ONCE IV (DC) Fentanyl Citrate (SUBLIMAZE) 25 MCG PACU Q5MIN P RN PRN IV (DC) Hydromorphone HCl (DILAUDID) 0.25 MG PACU Q5MIN PRN PRN IV (DC) Lactated Ringer's (LACTATED RINGERS) 1,000 ML PA CU IV (DC) Metoprolol Tartrate (LOPRESSOR) 2 MG PACU Q5MIN PRN PRN IV (DC) Morphine Sulfate (morphine PF SYRINGE) 2 MG PACU Q5MIN PRN PRN IV (DC) Naloxone HCl (NARCAN) 0.1 MG PACU ONCE PRN PRN I V (DC) Ondansetron HCl (ZOFRAN) 4 MG PACU ONCE PRN PRN IV (DC) Gabapentin (NEURONTIN) 300 MG BEDTIME PO Tamsulosin HCl (FLOMAX) 0.4 MG DAILY PO Morphine Sulfate (morphine PF SYRINGE) 2 MG Q6H PRN PRN IV Acetaminophen (TYLENOL) 650 MG Q4H PRN PRN PO Al Hydrox/Mg Hydrox/Simethicone (MAALOX PLUS) 30 ML Q4H PRN PRN PO Calcium Carbonate (TUMS) 1,000 MG DAILY PRN PRN PO Clonidine HCl (CATAPRES) 0.1 MG Q6H PRN PRN PO Dextrose/Sodium Chloride (DEXT 5% 0.45% NACL ) 1 ,000 ML .Q10H IV Guaifenesin/Dextromethorphan (ROBITUSSIN-DM) 10 ML QID PRN PRN PO Hydrocodone Bitart/Acetaminophen (NORCO 5/325 TA BLET) 1 TAB Q4H PRN PRN PO Hydrocodone Bitart/Acetaminophen (NORCO 10/325 T ABLET) 1 TAB Q4H PRN PRN PO Magnesium Sulfate/Dextrose (MAGNESIUM SULFATE 1G M/D5W 100ML) 100 ML DAILY PRN PRN IV Ondansetron HCl (ZOFRAN) 4 MG Q4H PRN PRN IV Polyethylene Glycol (MIRALAX) 17 GM DAILY PRN MI N PO Potassium Chloride (K-DUR) 40 MEQ DAILY PRN PRN PO Potassium Phos/Sodium Phos (PHOS-NAK PACKET) 2 P KT DAILY PRN PRN PO (CKD ) Simethicone (MYLICON) 160 MG Q6H PRN PRN PO Trazodone HCl (DESYREL) 50 MG BEDTIME PRN PRN PO Results Radiology data: Recent Impressions: RADIOLOGY - XR HIP W/PEL UNI 2+V LT 12/18 1542 Report Impression - Status: SIGNED Entered: 12/18/2022 1601 IMPRESSION: There has been interval intramedullary kali and s crew fixation of the left femur for an intertrochanteric fracture in near anatomic alignment. The components appear in appropriate position. There is no left femoral head dislocation. Prostatic brachyt herapy seeds are noted. Left upper lateral thigh soft tissue swel ling with overlying surgical skin hi are present. Impression By: [email or web address] - Laith Gasca MD Free Text Obj Notes Free Text Obj Notes: LLE : Incisions : Clean, Dry and Intact Motor Function : Patient able to flex and extend toes, flex and extend foot without incident Sensory Function : Sensory Intact to light touch L2- S1 distributions Vascular : 2+ Dorsal Pulses / Brisk Capillary Re fill Diagnosis, Assessment Plan Free text A P: DOI: 12/17/2022 Mechanism: Mechanical ground-level fall Injury: Left intertrochanteric hip fracture Associated: A-fib, on Xarelto last dose last nig ht, CLL Procedure date: 12/18/2022 Procedure:cephalomedullary nailing of left inter trochanteric hip fracture Surgeon: Dr. Reese POC -Patient doing well this a.m. still on BiPAP fro m overnight, however alert. Daughter at bedside for entire exam. Answered qu estions regarding physical therapy and weightbearing status. Dressing/Wound: Keep dressings clean dry and int act Activity: Begin physical therapy today toe-touch weightbearing left lower extremity IM: Primary team to manage entirety of care incl uding DVT prophylaxis ID: 24-hour perioperative antibiotic administrat ion DVT: Patient can resume p.o. Xarelto POD 1 Decub: standard precautions Dispo: Patient doing well, begin placement for r ehabilitation F/U: Patient will follow-up in clinic in 2 to 3 weeks for evaluation and suture removal -[facility] [address] [place] [address] [address] [place] [address] at 0950 RPT #:[id number] END OF REPORT 2022-12-19 05:44:00-00:00 [facility] ([facility] Progress Note REPORT#:[id number] REPORT STATUS: Signed DATE:12/19/22 TIME: 0544 PATIENT: RENETTA FERNANDEZ UNIT #: [id number] ROOM/BED: [address] : 40 AGE: 82 SEX: M ATTEND: Ra Foreign Gaona MD ADM AUTHOR: Magan Daniel MD R2 * ALL edits or amendments must be made on the el ectronic/computer document * Subjective HPI: Patient is resting at this time. Will work with CM regarding placement while continuing to medically optimize. Review of Systems ROS comments: See HPI Objective General VS/I O: 24 hour I O ending at 0700: 12/19 0700 12/18 1900 Intake Total 1550.00 1600.00 Output Total 2350 Balance -800.00 1600.00 Intake, IV 850.00 1600.00 Intake, Oral 700 Number 0 Bowel Movements Number 0 Incontinent Voids Number Voids 3 Output, Urine 2350 Vital Signs: Date Time Temp Pulse Resp B/P B/P Pulse O2 O2 F low FiO2 Mean Ox Delivery Rate 12/19 0630 97.5 56 14 95/52 66.0 94 12/19 0245 54 12 106/55 71.9 98 12/19 0046 98.6 64 12 93/46 61.3 93 12/18 2200 2 12/18 2058 63 14 128/50 76.0 98 12/18 1712 65 95 28 12/18 1712 96 Nasal 2 cannula 12/18 1137 98.4 70 14 106/58 74.2 99 12/18 1100 71 17 96/50 94 Room air 12/18 1050 69 16 114/56 94 Room air 12/18 1045 65 16 108/55 100 Room air 12/18 1040 64 16 109/55 100 Room air 12/18 1035 68 19 120/56 100 Simple 10 mask 12/18 1033 66 18 140/59 100 Simple 10 mask 12/18 0800 Nasal 2 cannula PATIENT WEIGHT: Weight (lb): Weight (oz): Weight (kg): 100.000 Medications: Active Meds + DC'd Last 24 Hrs Cefazolin Sodium (ANCEF 1 GM) 2 GM Q8HR IV (DC) Sterile Water (STERILE WATER) 20 ML Q8HR IV (DC) Dexamethasone Sodium Phosphate (DECADRON 4MG/ML) 0 .STK-MED ONE .ROUTE ( DC) Ondansetron HCl (ZOFRAN) 0 .STK-MED ONE .ROUTE ( DC) Albumin Human (ALBUMINAR-5) 250 ML .STK-MED ONE IV (DC) Sugammadex Sodium (BRIDION) 0 .STK-MED ONE .ROUT E (DC) Calcium Chloride (CALCIUM CHLORIDE 10% SYRINGE) 0 .STK-MED ONE .ROUTE ( DC) Lidocaine HCl (XYLOCAINE 1% 5ML) 5 ML .STK-MED O NE IV (DC) Etomidate (AMIDATE) 0 .STK-MED ONE .ROUTE (DC) Bupivacaine HCl/Epinephrine Bitart (SENSORCAINE- EPI 0.5%) 0 .STK-MED ONE .ROUTE (DC) Cefazolin Sodium (ANCEF 1 GM) 0 .STK-MED ONE IV (DC) Acetaminophen (TYLENOL) 650 MG PACU ONCE PO (DC) Albuterol Sulfate (PROVENTIL NEB) 2.5 MG PACU ON CE PRN PRN NEB (DC) Dexamethasone Sodium Phosphate (DECADRON 4MG/ML) 4 MG PACU ONCE IV (DC) Fentanyl Citrate (SUBLIMAZE) 25 MCG PACU Q5MIN P RN PRN IV (DC) Hydromorphone HCl (DILAUDID) 0.25 MG PACU Q5MIN PRN PRN IV (DC) Lactated Ringer's (LACTATED RINGERS) 1,000 ML PA CU IV (DC) Metoprolol Tartrate (LOPRESSOR) 2 MG PACU Q5MIN PRN PRN IV (DC) Morphine Sulfate (morphine PF SYRINGE) 2 MG PAC U Q5MIN PRN PRN IV (DC) Naloxone HCl (NARCAN) 0.1 MG PACU ONCE PRN PRN I V (DC) Ondansetron HCl (ZOFRAN) 4 MG PACU ONCE PRN PRN IV (DC) Gabapentin (NEURONTIN) 300 MG BEDTIME PO Tamsulosin HCl (FLOMAX) 0.4 MG DAILY PO Morphine Sulfate (morphine PF SYRINGE) 2 MG Q6H PRN PRN IV Acetaminophen (TYLENOL) 650 MG Q4H PRN PRN PO Al Hydrox/Mg Hydrox/Simethicone (MAALOX PLUS) 30 ML Q4H PRN PRN PO Calcium Carbonate (TUMS) 1,000 MG DAILY PRN PRN PO Clonidine HCl (CATAPRES) 0.1 MG Q6H PRN PRN PO Dextrose/Sodium Chloride (DEXT 5% 0.45% NACL ) 1 ,000 ML .Q10H IV Guaifenesin/Dextromethorphan (ROBITUSSIN-DM) 10 ML QID PRN PRN PO Hydrocodone Bitart/Acetaminophen (NORCO 5/325 TA BLET) 1 TAB Q4H PRN PRN PO Hydrocodone Bitart/Acetaminophen (NORCO 10/325 T ABLET) 1 TAB Q4H PRN PRN PO Magnesium Sulfate/Dextrose (MAGNESIUM SULFATE 1G M/D5W 100ML) 100 ML DAILY PRN PRN IV Ondansetron HCl (ZOFRAN) 4 MG Q4H PRN PRN IV Polyethylene Glycol (MIRALAX) 17 GM DAILY PRN MI N PO Potassium Chloride (K-DUR) 40 MEQ DAILY PRN PRN PO Potassium Phos/Sodium Phos (PHOS-NAK PACKET) 2 P KT DAILY PRN PRN PO (CKD ) Simethicone (MYLICON) 160 MG Q6H PRN PRN PO Trazodone HCl (DESYREL) 50 MG BEDTIME PRN PRN PO Physical Exam General appearance: sleeping comfortably Cardiovascular: normal heart sounds, regular rat e rhythm Respiratory: aerating well, no distress Abdomen: non-tender, soft Extremities: no edema Results Findings/Data: Laboratory Tests 12/19 0301 Chemistry Sodium (133 - 144 mmol/L) 137.0 Potassium (3.5 - 5.1 mmol/L) 4.5 Chloride (95 - 105 mmol/L) 105 Carbon Dioxide (21 - 32 mmol/L) 29 Anion Gap (4.0 - 15.0 GAP calc) 3.0 L BUN (7 - 18 MG/DL) 15 Creatinine (0.55 - 1.30 MG/DL) 0.73 Glomerular Filtr Rate (>60 estGFR) 91 Glucose (70 - 110 MG/DL) 174 H Calcium (8.5 - 10.1 MG/DL) 8.0 L Total Bilirubin (0.00 - 1.00 MG/DL) 0.94 Direct Bilirubin (0.00 - 0.30 MG/DL) 0.21 Indirect Bilirubin (0.2 - 1.3 MG/DL) 0.73 AST (15 - 37 Unit/L) 23 ALT (12 - 78 Unit/L) 16 Total Alk Phosphatase (45 - 117 Unit/L) 48 Total Protein (6.4 - 8.2 G/DL) 5.1 L Albumin (3.4 - 5.0 G/DL) 2.6 L Albumin/Globulin Ratio (1.2 - 2.2 RATIO) 1.0 L Specimen Appearance (1 NORMAL Index/DL) 1 SIMON L <2 MG Specimen Hemolysis (1 NORMAL Index/DL) 1 NORMAL <10 MG Laboratory Tests 12/19 0301 Hematology WBC (4.1 - 12.1 K/mm3) 36.4 H RBC (3.8 - 5.5 M/mm3) 2.76 L Hgb (10.6 - 15.8 G/DL) 8.6 L Hct (31.8 - 47.4 %) 26.7 L MCV (80.1 - 101.1 fL) 96.7 MCH (25.3 - 35.3 pg) 31.2 MCHC (32.7 - 35.1 G/DL) 32.2 L RDW (12.2 - 16.4 %) 13.5 Plt Count (155 - 337 K/mm3) 70 L MPV (7.6 - 10.4 fL) 11.3 H Gran % (37.8 - 82.6 %) 12.4 L Lymph % (Auto) (14.1 - 45.4 %) 84.8 H Wood % (Auto) (2.5 - 11.7 %) 2.2 L Eos % (Auto) (0.0 - 6.2 %) 0.2 Baso % (Auto) (0.0 - 2.6 %) 0.2 Gran # (2.0 - 13.7 k/mm3) 4.50 Lymph # (Auto) (0.6 - 3.8 K/mm3) 30.86 H Wood # (Auto) (0.11 - 0.59 K/mm3) 0.80 H Eos # (Auto) (0.0 - 0.4 K/mm3) 0.06 Baso # (Auto) (0.0 - 0.1 K/mm3) 0.07 Add Manual Diff (CRITERIA DIFF/SCN) CRITERIA (S CAN) Immature Gran % (0.0 - 2.0 %) 0.2 Nucleated RBC % (0.0 - 1.0 /100WBC%) 0.0 Nucleated RBCs # (0.00 - 0.05 K/mm3) 0.00 Smudge Cells (NONE ON SCAN) SLIGHT Platelet Estimate (ADEQUATE ON SCAN) MOD DECR L Plt Morphology Comment (NORMAL PLTS ON SCAN) GI ANT FEW Ovalocytes (NONE ON SCAN) FEW Radiology data: Recent Impressions: RADIOLOGY - XR HIP W/PEL UNI 1V LT 12/18 0845 Report Impression - Status: SIGNED Entered: 12/18/2022 1450 IMPRESSION: Intraoperative fluoroscopic images of the left f emur ORIF was performed. Please note that I was not present fo r this procedure. Please refer to the operative notes for further details. Fluoroscopy time: 1 minute 19 seconds. Total cumulative dose : 10.089 mGy. Impression By: Shaun Gasca MD RADIOLOGY - XR HIP W/PEL UNI 2+V LT 12/18 1542 Report Impression - Status: SIGNED Entered: 12/18/2022 1601 IMPRESSION: There has been interval intramedullary kali and s crew fixation of the left femur for an intertrochanteric fracture in near anatomic alignment. The components appear in appropriate position. There is no left femoral head dislocation. Prostatic brachyt herapy seeds are noted. Left upper lateral thigh soft tissue swel ling with overlying surgical skin hi are present. Impression By: Shaun Gasca MD Diagnosis, Assessment Plan Hospital course to date: Presentation Pt is 82yo M with PMH of bradycardia, chronic af ib, sick sinus syndrome s/p pacemaker, on xarelto, chron ic lymphocytic leukemia (not on tx) here with lt hip pain after a fall that occurred this night. Pt r eports he was going to the bathroom in the dark and did not realize the door was closed. Ran into door and fell back onto lt hip. Since then has been havin g pain, worse with movement. Reports hitting his head but denies LOC. Denies chest pain, abdominal pain, shortness of breath, or nausea/vomiting. Pt is on xarelto but unsure of why he is taking it. Pt reports for CLL, he has been seeing heme/onc Dr. Flowers in [place] but they are just monitoring it. Free Text A P: Pt is 82yo M with PMH of bradycardia, chronic af ib, sick sinus syndrome s/p pacemaker, chronic lymphocytic leukemia (not on tx) admitted for lt hip fx Lt comminuted/impacted intertrochanteric hip fx - VS reviewed - ortho consulted - cardiology consulted - on tele - echo: EF 60-65%, see report - surgery 12/18 - Hgb 8.6 today, will monitor closely - pain scale meds + gabapentin - PT/OT TTWB - xarelto stopped for surgery. will begin loveno x postop History of CLL Thrombocytopenia - heme/onc consulted - leukocytosis noted - consider post op abx as pt is at risk of infection. monitor for any signs/sxs of infection - Post surgery platelets 70k. Keep above 50,000, transfuse as needed. Comorbidities: - continue home tamsulosin, and gabapentin; hold home lisinopril PPx: SCD, hold xarelto, lovenox Diet: regular Dispo: clinical improvement, specialist recs Electronically Signed by Magan Daniel MD R2 o n 12/19/22 at 1212 at 1011 RPT #:[id number] END OF REPORT 2022-12-18 10:35:00-00:00 [id number] [place] [address] PATIENT NAME: RENETTA FERNANDEZ ADMIT DATE: 3 ACCOUNT NO: [id number] ROOM NO: [id number] AGE: 82 REPORT TYPE: REPORT OF OPERATION SEX: M ADMITTING PHYSICIAN:Ra Foreign Gaona MD ATTENDING PHYSICIAN:Ra Foreign Gaona MD OPERATION DATE: 12/18/2022 PREOPERATIVE DIAGNOSIS: Left displaced intertroc hanteric hip fracture. POSTOPERATIVE DIAGNOSIS: Left displaced intertro chanteric hip fracture. PROCEDURE: Cephalomedullary nailing of left inte rtrochanteric hip fracture. SURGEON: Johnathan Reese MD. FINANCIAL REPRESENTATIVE: Aurelia Ulloa, licensed first a ssistant. ANESTHESIA: General endotracheal anesthesia. ESTIMATED BLOOD LOSS: 100 mL. SPECIMENS: None. COMPLICATIONS: None. DRAINS: None. DESCRIPTION OF PROCEDURE: After identification i n the preoperative holding area, the patient was taken to the operative jaylin te where he was placed in a supine position on the [place] table. General anesthesia was then induced while he remained in his hospital bed. All bony p rominences were well padded. His lower extremities were placed in longitudinal distraction against the perineal post. His right hip and thigh was then prepped and cody ped in the usual standard fashion. A formal timeout was held, identifying the patient, the operative procedure, and the operative extremity. Next, th e starting point that would allow an incision to the gre ater trochanter as well as extending to the base of the femoral neck was identified and the skin was marked. The skin was then incised sharply and electroc autery was used to dissect through the subcutaneous tissue down to the fascia of the gluteus doreen, which was split in line with the skin incision with muscl e fibers elevated. I then explored the fracture and placed clamp across the split greater trochanter . I placed a second linear clamp around the base of the neck and compressed it against the more lateral fracture segment. That allowed decent re duction of the fracture in both AP and lateral views. Next, I advanced a threaded guide wire into the tip of the greater trochanter in line with the long axis of the femur and overreamed the guidewire with the opening reamer. I then advanc ed a ball-tipped guidewire through the tip of the greater trochanter down a cross the comminuted PATIENT NAME: RENETTA FERNANDEZ 5188 intertrochanteric region and down to the level o f the distal physeal scar. I measured the nail length at 400 mm. I th en sequentially reamed the canal up to a size 13.5 mm reamer. I tucker ected a [employer] TFN nail measuring 400 mm in length x 12 mm in width and affixed that to the impactor. I advanced the nail over the guidewire down to the appropriate depth. Next, the incision was extended along distally to allow me to use that incision to edmundo ce the sliding hip blade. I advanced the triple guide for that to e lateral aspect of the femur and then advanced a guidewire into the center-center posi tion of the femoral head. I overreamed the guidewire with the opening reamer as well as the distal reamer set to 115 mm. I selected a 110 mm spiral blade and affixed that to the impactor before advancing it over the guidewire into the femoral head in the center-center position. Next , I compressed the fracture distracting back on the spiral blade as much as it would allow m juan to do so. At that point, the locking mechanism was engaged and lo osened to allow for some compression at the fracture site. I then removed the targeting mecha nism from the nail. There was a little distraction at the fracture site in the reverse obliquity direction and we released the traction and compressed the fractur e site by pushing on the leg. At that point, I decided to fix the nail distall y through the dynamic hole to allow for further compression. A perfect [place] technique was used to place a single 52 mm x 5.0 mm distal locking screw through the dynamic hole in the plate set to allow for some compression. C-arm imaging in both AP and lateral views then verified good placement of the instrumentat ion and reduction of the fracture. Attention was then turned toward wound closure. The wounds were irrigated with normal saline . The fascia of the gluteus doreen was closed with 0 Vicryl suture, followed by 2-0 Vicryl closure of the subcutaneous tissues, and hi for the skin. Sterile dressings were brandon lied. All sponge and needle counts were correct. General anesthesia was reve rsed and he was returned to recovery in stable condition. I will plan to arlene e him toe touch weightbearing as he is a pretty big alonso and there is comminuti on of his intertrochanteric region and I want to allow for some compression, but not over compression. Dictated By: Johnathan Reese MD Date Dictated: 12/18/2022 10:35:16 Date Transcribed: 12/18/2022 11:53:55 SAWYER/MARIO/KELLY Receipt ID: [id number] Authenticated by Johnathan Reese MD On 023 04:50:53 PM at 0450 PATIENT NAME: RENETTA FERNANDEZ [id number] 2022-12-18 10:22:00-00:00 [facility] ([facility]) Brief Op Note REPORT#:[id number] REPORT STATUS: Signed DATE:12/18/22 TIME: 1022 PATIENT: RENETTA FERNANDEZ UNIT #: [id number] ROOM/BED: [address] : 40 AGE: 82 SEX: M ATTEND: Ra Foreign Gaona MD ADM AUTHOR: Johnathan Reese MD * ALL edits or amendments must be made on the el [employer] Original [employer]/computer document * Op/Inv Proc Note - Brief Pre-procedure diagnosis: left intertrochanteric hip fracture Post-procedure diagnosis: same as pre procedure dx Procedures performed: cephalomedullary nailing of left intertrochanter ic hip fracture Primary Surgeon: Johnathan Reese MD Radiator Cleaner(s): KAREL Esparza Findings: As above Complications: none Estimated blood loss in ml's: 100 cc Specimens removed/altered: none at 1026 RPT #:[id number] END OF REPORT 2022-12-18 08:49:00-00:00 [facility] ([facility]) DT PROGRESS NOTE REPORT#:[id number] REPORT STATUS: Signed DATE:12/18/22 TIME: 08 PATIENT: RENETTA FERNANDEZ UNIT #: [id number] ROOM/BED: [address] : 40 AGE: 82 SEX: M ATTEND: Ra Foreign Gaona MD ADM AUTHOR: Quan Ambrose MD * ALL edits or amendments must be made on the [employer] document * Progress Note Progress Note Patient is not in the floor. He HAS GONE for hip surgery. Patient is admitted second to left hip fracture. He has a hi story of CLL not on treatment. Patient has chronic thrombocytopenia. Current platelet c ount is 75,000. Patient patient states Xarelto for cardiac reasons. At t his time Xarelto has been on hold since . PLAN; Monitor platelets postsurgery Keep PLATELETS above 50,000 Transfuse platelets as needed Will need DVT prophylaxis postsurgery with eithe r Xarelto or Lovenox. at 0851 RPT #:[id number] END OF REPORT 2022-12-18 06:10:00-00:00 [facility] ([facility]) Family Medicine Progress Note REPORT#:[id number] REPORT STATUS: Signed DATE:12/18/22 TIME: 06 PATIENT: RENETTA FERNANDEZ UNIT #: [id number] ROOM/BED: [address] : 40 AGE: 82 SEX: M ATTEND: Ra Foreign Gaona MD ADM AUTHOR: Magan Daniel MD R2 * ALL edits or amendments must be made on the [employer]/computer document * Magan Daniel 12/18/22 0610: Subjective HPI: Patient feeling ok this AM. No additional concer ns. Rolled back for surgery during rounds. Review of Systems ROS comments: See HPI Objective General VS/I O: 24 hour I O ending at 0700: 12/18 0700 12/17 1900 Intake Total Output Total 400 Balance -400 Output, Urine 400 Vital Signs: Date Time Temp Pulse Resp B/P B/P Pulse O2 O2 F low FiO2 Mean Ox Delivery Rate 12/18 1137 98.4 70 14 106/58 74.2 99 12/18 1100 71 17 96/50 94 Room air 12/18 1050 69 16 114/56 94 Room air 12/18 1045 65 16 108/55 100 Room air 12/18 1040 64 16 109/55 100 Room air 12/18 1035 68 19 120/56 100 Simple 10 mask 12/18 1033 66 18 140/59 100 Simple 10 mask 12/18 0609 99 Nasal 4 36 cannula 12/18 0430 98.2 61 14 111/62 78.7 99 Room air 12/17 2316 98.4 64 14 111/67 81.4 99 Nasal cannula 12/17 1930 98.2 58 14 115/63 80.5 100 Room air 12/17 1900 Nasal 4 cannula 12/17 1533 97.9 54 16 103/57 72.5 99 Nasal 4 cannula PATIENT WEIGHT: Weight (lb): Weight (oz): Weight (kg): 100.000 Medications: Active Meds + DC'd Last 24 Hrs Cefazolin Sodium (ANCEF 1 GM) 2 GM Q8HR IV Sterile Water (STERILE WATER) 20 ML Q8HR IV Dexamethasone Sodium Phosphate (DECADRON 4MG/ML) 0 .STK-MED ONE .ROUTE ( DC) Ondansetron HCl (ZOFRAN) 0 .STK-MED ONE .ROUTE ( DC) Albumin Human (ALBUMINAR-5) 250 ML .STK-MED ONE IV (DC) Sugammadex Sodium (BRIDION) 0 .STK-MED ONE .ROUT E (DC) Calcium Chloride (CALCIUM CHLORIDE 10% SYRINGE) 0 .STK-MED ONE .ROUTE ( DC) Lidocaine HCl (XYLOCAINE 1% 5ML) 5 ML .STK-MED O NE IV (DC) Etomidate (AMIDATE) 0 .STK-MED ONE .ROUTE (DC) Bupivacaine HCl/Epinephrine Bitart (SENSORCAINE- EPI 0.5%) 0 .STK-MED ONE .ROUTE (DC) Cefazolin Sodium (ANCEF 1 GM) 0 .STK-MED ONE IV (DC) Succinylcholine Chloride (QUELICIN, ANECTINE) 0 .STK-MED ONE .ROUTE (DC) Rocuronium [place] (ZEMURON) 0 .STK-MED ONE .ROU TE (DC) Fentanyl Citrate (SUBLIMAZE) 0 .STK-MED ONE .ROU TE (DC) Phenylephrine HCl (JORGE-SYNEPHRINE) 0 .STK-MED ON E .ROUTE (DC) Propofol (DIPRIVAN) 20 ML .STK-MED ONE IV (DC) Sodium Chloride (SODIUM CHLORIDE 0.9% 50 ML) 100 ML .STK-MED ONE IV (DC) Acetaminophen (TYLENOL) 650 MG PACU ONCE PO (CKD ) Albuterol Sulfate (PROVENTIL NEB) 2.5 MG PACU ON CE PRN PRN NEB Dexamethasone Sodium Phosphate (DECADRON 4MG/ML) 4 MG PACU ONCE IV (DC) Fentanyl Citrate (SUBLIMAZE) 25 MCG PACU Q5MIN P RN PRN IV Hydromorphone HCl (DILAUDID) 0.25 MG PACU Q5MIN PRN PRN IV Lactated Ringer's (LACTATED RINGERS) 1,000 ML PA CU IV Metoprolol Tartrate (LOPRESSOR) 2 MG PACU Q5MIN PRN PRN IV Morphine Sulfate (morphine PF SYRINGE) 2 MG PACU Q5MIN PRN PRN IV Naloxone HCl (NARCAN) 0.1 MG PACU ONCE PRN PRN I V (DC) Ondansetron HCl (ZOFRAN) 4 MG PACU ONCE PRN PRN IV Gabapentin (NEURONTIN) 300 MG BEDTIME PO Enoxaparin Sodium (LOVENOX) 30 MG ONCE SUBQ (DC) Enoxaparin Sodium (LOVENOX) 40 MG ONCE ONE SUBQ (CAN) Tamsulosin HCl (FLOMAX) 0.4 MG DAILY PO Morphine Sulfate (morphine PF SYRINGE) 2 MG Q6H PRN PRN IV Acetaminophen (TYLENOL) 650 MG Q4H PRN PRN PO Al Hydrox/Mg Hydrox/Simethicone (MAALOX PLUS) 30 ML Q4H PRN PRN PO Calcium Carbonate (TUMS) 1,000 MG DAILY PRN PRN PO Clonidine HCl (CATAPRES) 0.1 MG Q6H PRN PRN PO Dextrose/Sodium Chloride (DEXT 5% 0.45% NACL ) 1 ,000 ML .Q10H IV Guaifenesin/Dextromethorphan (ROBITUSSIN-DM) 10 ML QID PRN PRN PO Hydrocodone Bitart/Acetaminophen (NORCO 5/325 TA BLET) 1 TAB Q4H PRN PRN PO Hydrocodone Bitart/Acetaminophen (NORCO 10/325 T ABLET) 1 TAB Q4H PRN PRN PO Magnesium Sulfate/Dextrose (MAGNESIUM SULFATE 1G M/D5W 100ML) 100 ML DAILY PRN PRN IV Ondansetron HCl (ZOFRAN) 4 MG Q4H PRN PRN IV Polyethylene Glycol (MIRALAX) 17 GM DAILY PRN MI N PO Potassium Chloride (K-DUR) 40 MEQ DAILY PRN PRN PO Potassium Phos/Sodium Phos (PHOS-NAK PACKET) 2 P KT DAILY PRN PRN PO (CKD ) Simethicone (MYLICON) 160 MG Q6H PRN PRN PO Trazodone HCl (DESYREL) 50 MG BEDTIME PRN PRN PO Physical Exam General appearance: alert, awake, oriented Cardiovascular: normal heart sounds, regular rat e rhythm Respiratory: aerating well, no distress Abdomen: non-tender, soft Extremities: no edema Results Findings/Data: Laboratory Tests 12/17 1408 Hematology WBC (4.1 - 12.1 K/mm3) 34.3 H RBC (3.8 - 5.5 M/mm3) 3.63 L Hgb (10.6 - 15.8 G/DL) 11.6 Hct (31.8 - 47.4 %) 34.7 MCV (80.1 - 101.1 fL) 95.6 MCH (25.3 - 35.3 pg) 32.0 MCHC (32.7 - 35.1 G/DL) 33.4 RDW (12.2 - 16.4 %) 13.8 Plt Count (155 - 337 K/mm3) 77 L MPV (7.6 - 10.4 fL) 10.8 H Gran % (37.8 - 82.6 %) 16.4 L Lymph % (Auto) (14.1 - 45.4 %) 80.8 H Wood % (Auto) (2.5 - 11.7 %) 2.2 L Eos % (Auto) (0.0 - 6.2 %) 0.1 Baso % (Auto) (0.0 - 2.6 %) 0.3 Gran # (2.0 - 13.7 k/mm3) 5.62 Lymph # (Auto) (0.6 - 3.8 K/mm3) 27.70 H Wood # (Auto) (0.11 - 0.59 K/mm3) 0.76 H Eos # (Auto) (0.0 - 0.4 K/mm3) 0.04 Baso # (Auto) (0.0 - 0.1 K/mm3) 0.09 Add Manual Diff (CRITERIA DIFF/SCN) CRITERIA (S CAN) Immature Gran % (0.0 - 2.0 %) 0.2 Nucleated RBC % (0.0 - 1.0 /100WBC%) 0.1 Nucleated RBCs # (0.00 - 0.05 K/mm3) 0.03 Smudge Cells (NONE ON SCAN) SLIGHT Platelet Estimate (ADEQUATE ON SCAN) MOD DECR L Plt Morphology Comment (NORMAL PLTS ON SCAN) AG G.NONE Diagnosis, Assessment Plan Free Text A P: Pt is 82yo M with PMH of bradycardia, chronic af ib, sick sinus syndrome s/p pacemaker, chronic lymphocytic leukemia (not on tx) admitted for lt hip fx Lt comminuted/impacted intertrochanteric fx - VS reviewed - ortho consulted - cardiology consulted - on tele - currently NPO - hold xarelto - echo: EF 60-65%, see report - anticipate surgery this AM History of CLL Thrombocytopenia - heme/onc consulted - Discussed surgery okay if platelets >5 0,000. recommend waiting after stoping xarelto, and pt will need post-op abx 2/2 risk o f infection Comorbidities: - continue home tamsulosin, and gabapentin; hold home lisinopril PPx: SCD, hold xarelto Diet: NPO Dispo: clinical improvement, specialist recs Ra foreign Gaona 12/20/22 1006: Attestations Teaching Physician Attestation F/U visit w/o resident: I personally saw the patient and reviewed the re sident's note. I . . . agree with the resident's findings and plan. Electronically Signed by Magan Daniel MD R2 o n 12/18/22 at 1145 at 1010 RPT #:[id number] END OF REPORT 2022-12-17 10:01:00-00:00 [facility] ([facility]) Orthopaedic Consult Note REPORT#:[id number] REPORT STATUS: Signed DATE:12/17/22 TIME: 1001 PATIENT: RENETTA FERNANDEZ UNIT #: [id number] ROOM/BED: [address] : 40 AGE: 82 SEX: M ATTEND: Ra Foreign Gaona MD ADM AUTHOR: Sixto Ford MD * ALL edits or amendments must be made on the [employer]/computer document * History of Present Illness Time At Bedside )( Time at bedside: 0800 Requesting clinician: Emergency Department Reason for consult: fracture closed Chief complaint: Left hip fracture HPI: Patient is a 82-year-old male that ran to his or in the middle of the night and fell backwards onto his left hip. Patient im mediate pain and inability to ambulate. Patient is otherwi se a community ambulator and does not use a cane or walker. Patient endorses significant left hip pa in is worse with activity and improves with rest. Patient is on Xarelto and to ok his last dose last night. History - Adult longitudinal Additional medical history: HTN, Dyslipidemia, BPH, Pacemaker Sick sinus syndrome, atrial fibrillation Past surgical history: Reports: Pacemaker. Alcohol use: Alcohol use Smoking status for patients 13 years old or olde r: Former Smoker Allergies: Coded Allergies: No Known Allergies (11/28/21) Ambulatory status: Independent Objective VS: Last Documented: Result Date Time Pulse Ox 99 12/17 1012 B/P 101/53 12/17 1012 B/P Mean 69.2 12/17 1012 O2 Delivery Room air 12/17 101 Temp 97.9 12/17 1012 Pulse 53 12/17 1012 Resp 17 12/17 1012 O2 Flow Rate 4 12/17 0705 PATIENT WEIGHT: Weight (lb): Weight (oz): Weight (kg): 100.000 Results Findings/data: Laboratory Tests 12/17 404 Chemistry Sodium (133 - 144 mmol/L) 136.0 Potassium (3.5 - 5.1 mmol/L) 4.6 Chloride (95 - 105 mmol/L) 104 Carbon Dioxide (21 - 32 mmol/L) 27 Anion Gap (4.0 - 15.0 GAP calc) 5.0 BUN (7 - 18 MG/DL) 16 Creatinine (0.55 - 1.30 MG/DL) 1.00 Glomerular Filtr Rate (>60 estGFR) 75 Glucose (70 - 110 MG/DL) 143 H Calcium (8.5 - 10.1 MG/DL) 8.0 L Total Bilirubin (0.00 - 1.00 MG/DL) 0.62 Direct Bilirubin (0.00 - 0.30 MG/DL) 0.14 Indirect Bilirubin (0.2 - 1.3 MG/DL) 0.48 AST (15 - 37 Unit/L) 35 ALT (12 - 78 Unit/L) 24 Total Alk Phosphatase (45 - 117 Unit/L) 63 Total Protein (6.4 - 8.2 G/DL) 5.5 L Albumin (3.4 - 5.0 G/DL) 3.1 L Albumin/Globulin Ratio (1.2 - 2.2 RATIO) 1.3 Specimen Appearance (1 NORMAL Index/DL) 1 SIMON L <2 MG Specimen Hemolysis (1 NORMAL Index/DL) 4 SMALL 50-200 MG H Laboratory Tests 12/17 404 Coagulation PT (9.4 - 12.5 SECONDS) 24.6 *H INR (0.88 - 1.13 INR Unit) 2.21 H Laboratory Tests 12/17 404 Hematology WBC (4.1 - 12.1 K/mm3) 42.4 H RBC (3.8 - 5.5 M/mm3) 3.64 L Hgb (10.6 - 15.8 G/DL) 11.8 Hct (31.8 - 47.4 %) 35.1 MCV (80.1 - 101.1 fL) 96.4 MCH (25.3 - 35.3 pg) 32.4 MCHC (32.7 - 35.1 G/DL) 33.6 RDW (12.2 - 16.4 %) 13.7 Plt Count (155 - 337 K/mm3) 78 L MPV (7.6 - 10.4 fL) 10.6 H Gran % (37.8 - 82.6 %) 11.5 L Lymph % (Auto) (14.1 - 45.4 %) 86.2 H Wood % (Auto) (2.5 - 11.7 %) 1.4 L Eos % (Auto) (0.0 - 6.2 %) 0.3 Baso % (Auto) (0.0 - 2.6 %) 0.3 Gran # (2.0 - 13.7 k/mm3) 4.87 Lymph # (Auto) (0.6 - 3.8 K/mm3) 36.57 H Wood # (Auto) (0.11 - 0.59 K/mm3) 0.60 H Eos # (Auto) (0.0 - 0.4 K/mm3) 0.14 Baso # (Auto) (0.0 - 0.1 K/mm3) 0.11 H Add Manual Diff (CRITERIA DIFF/SCN) MAN DIFF IN DICATED Total Counted (100 #CELLS) 100 Immature Gran % (0.0 - 2.0 %) 0.3 Seg Neutrophils % (40 - 75 %) 11 L Lymphocytes % (Manual) (12.6 - 43.5 %) 84 H Atypical Lymphs % (0 - 0 %) 2 H Monocytes % (Manual) (4.2 - 12.7 %) 2 L Basophils % (Manual) (0 - 2.6 %) 1 Nucleated RBC % (0.0 - 1.0 /100WBC%) 0.0 Nucleated RBCs # (0.00 - 0.05 K/mm3) 0.00 Smudge Cells (NONE ON SCAN) MODERATE H Platelet Estimate (ADEQUATE ON SCAN) MOD DECR L Ovalocytes (NONE ON SCAN) FEW Radiology data: Recent Impressions: RADIOLOGY - XR HIP W/PEL UNI 2+V LT 12/17 0322 Report Impression - Status: SIGNED Entered: 12/17/2022 0349 Impression: Comminuted left femoral intertrochanteric fractu re. Impression By: Nadia Navarro RADIOLOGY - XR CHEST 1 V 12/17 032 Report Impression - Status: SIGNED Entered: 12/17/2022 0350 IMPRESSION: No active pulmonary findings. Impression By: Nadia Navarro CAT SCAN - CT HEAD/BRAIN W/O CONT 12/17 0345 Report Impression - Status: SIGNED Entered: 12/17/2022 0352 Impression: No acute intracranial CT findings. Impression By: Nadia Navarro CAT SCAN - CT PELVIS W/O CONTRAST 12/17 349 Report Impression - Status: SIGNED Entered: 12/17/2022 0412 IMPRESSION: Comminuted and impacted left femoral intertrocha nteric fracture with distracted fragments. Intramuscular edema of the proximal thigh muscle s. Extensive partially visualized retroperitoneal, iliac chain and bilateral inguinal chain lymphadenopathy with gonsalez spected splenomegaly. Follow-up complete CT of the abdomen and pelvis is recommended. Impression By: Nadia Navarro RADIOLOGY - XR FEMUR MIN 2 VW LT 12/17 0515 Report Impression - Status: SIGNED Entered: 12/17/2022 0534 Impression: Comminuted left femoral intertrochanteric fractu re. Impression By: Nadia Navarro X-ray interpretation: Views of the left hip demonstrate a comminuted l eft intertrochanteric hip fracture Free Text Obj Notes Free Text Obj Notes: Left upper extremity: The cl avicle shoulder humerus scapula elbow forearm wrist and hand are nontender to pa lpation. Patient able to elevate the arm above head , flex and extend the elbow without diff iculty. AIN/PIN/R/M/U is motor intact. Sensation intact to light touch in the R/M/U/A d istributions. 2+ radial pulse Right upper extremity: The c lavicle shoulder humerus scapula elbow forearm wrist and hand are nontender to pa lpation. Patient able to elevate the arm above head , flex and extend the elbow without diff iculty. AIN/PIN/R/M/U is motor intact. Sensation intact to light touch in the R/M/U/A d istributions. 2+ radial pulse Pelvis: No pain with AP or lateral compression o f the pelvis Left lower extremity: No tenderness to palpation at the femur or knee tibia- fibula ankle and foot. Leg held flexed Rotated pain with logroll of the hip. Unable to straight leg raise is intact. EHL/FHL/gastrocsoleus/tibialis anterior is motor intact. Sensation intact to light touch in the sural, saphenous, superficial peroneal, deep peroneal, and tibial distributions. 2+ DP pulse Right lower extremity: No tenderness to palpatio n at the femur,knee, tibia, fibula, ankle, and foot. No pain with logroll of the hip. Straight leg raise is intact. EHL/FHL/gastrocsoleus/tibialis anteri or is motor intact. Sensation intact to light touch in the sural, saphenous, s uperficial peroneal, deep peroneal, and tibial distributions. 2+ DP pulse Diagnosis, Assessment Plan Free Text A P: DOI: 12/17/2022 Mechanism: Mechanical ground-level fall Injury: Left intertrochanteric hip fracture Associated: A-fib, on Xarelto last dose last nig ht, CLL Discussed operative versus n onoperative intervention for this fracture with the patient. Discussed that we will almost universal ly recommend surgical intervention for these injuries so that patient can regain the ability to walk and help control the pain. We discussed that non operative treatment would involve being in bed/traction for 6 weeks and wo uld likely cause continued severe pain, pneumonia, pres sure sores, blood clots and deconditioning that may lead to early . We discussed surgical inter vention in the form of open versus closed reduction with intramedullary nail placement to stabilize the fracture and allow early ambulation. Discussed r isks and benefits of the surgery including pain, bleeding, infection, dam age to surrounding structures including nerve vessel bone tendon muscle ligame nt skin, fracture, need for further surgery, nonunion, malunion, leg length discrepancy, rotational deformity, hardware irritation, blood clots, str isauro, heart attack, and . No guarantees were expressed or implied. Patient wants to proceed with operative intervention. We discussed his increased risk of infection due to his CLL and increased risk of bleeding due to Xarelto. Surgery will be delayed 24 h ours secondary to Xarelto use last night in order to decrease bleeding risk. Patient also to be seen by ematology for evaluation of his CLL before surgical intervention. Patient already been seen by [facility] o[facility]y. We will plan for surgery tomorrow morning for le ft hip closed reduction intramedullary nail. N.p.o. past midnight at 1101 RPT #:[id number] END OF REPORT 2022-12-17 08:42:00-00:00 [facility] ([facility]) Cardiology Consultation REPORT#:[id number] REPORT STATUS: Signed DATE:12/17/22 TIME: 841 PATIENT: RENETTA FERNANDEZ UNIT #: [id number] ROOM/BED: [address] : 40 AGE: 82 SEX: M ATTEND: Ra Foreign Gaona MD ADM AUTHOR: Bishnu De Luna APRN * ALL edits or amendments must be made on the [employer]/computer document * Bishnu De Luna 12/17/22 0842: History of Present Illness HPI Requesting Clinician: Dr. Louis Reason for consult: Cardiac Clearance HPI: Mr. Fernandez is a pleasant 82yo male with PMHX significant for A-Fib (S/P PPM), HTN, HLD, and BPH. Presented to this ER S/P fall with left hip fracture. Patient reports recent F/U with his Cinder Crew Worker , with what he describes as an EKG and Echo, stated Cinder Crew Worker reported no abnormalit ies. Denies CP, SOB, Palpitations, N/V, or Dizziness. History - Adult longitudinal Additional medical history: HTN, Dyslipidemia, BPH, Pacemaker Past surgical history: Reports: Pacemaker. Additional family history: N/C Alcohol use: Alcohol use Smoking status for patients 13 years old or olde r: Former Smoker Allergies: Coded Allergies: No Known Allergies (11/28/21) Review of Systems Free Text ROS Notes Free Text ROS Notes: 12 point ROS performed +/- HPI Objective General VS/I O: Vital Signs: Date Time Temp Pulse Resp B/P B/P Pulse O2 O2 F low FiO2 Mean Ox Delivery Rate 12/17 0705 97.9 53 16 94/54 67.1 99 Nasal 4 cannula 12/17 0541 4 12/17 0456 97.7 55 14 98/54 68.6 99 Room air 12/17 0322 98.1 58 15 115/62 79 94 Nasal 2 cannula 24 hour I O ending at 0700: 12/17 0700 12/16 1900 Intake Total 200.00 Output Total Balance 200.00 Intake, IV 200.00 Intake, Oral 0 Number 0 Bowel Movements Number Voids 0 Patient 100 kg Weight Weight Stated/Reported Measurement Method PATIENT WEIGHT: Weight (lb): Weight (oz): Weight (kg): 100.000 Medications: Active Meds + DC'd Last 24 Hrs Gabapentin (NEURONTIN) 300 MG BEDTIME PO Lisinopril (PRINIVIL) 5 MG DAILY PO (CAN) Tamsulosin HCl (FLOMAX) 0.4 MG DAILY PO Morphine Sulfate (morphine PF SYRINGE) 2 MG Q6H PRN PRN IV Acetaminophen (TYLENOL) 650 MG Q4H PRN PRN PO Al Hydrox/Mg Hydrox/Simethicone (MAALOX PLUS) 30 ML Q4H PRN PRN PO Calcium Carbonate (TUMS) 1,000 MG DAILY PRN PRN PO Clonidine HCl (CATAPRES) 0.1 MG Q6H PRN PRN PO Dextrose/Sodium Chloride (DEXT 5% 0.45% NACL ) 1 ,000 ML .Q10H IV Guaifenesin/Dextromethorphan (ROBITUSSIN-DM) 10 ML QID PRN PRN PO Hydrocodone Bitart/Acetaminophen (NORCO 5/325 TA BLET) 1 TAB Q4H PRN PRN PO Hydrocodone Bitart/Acetaminophen (NORCO 10/325 T ABLET) 1 TAB Q4H PRN PRN PO Magnesium Sulfate/Dextrose (MAGNESIUM SULFATE 1G M/D5W 100ML) 100 ML DAILY PRN PRN IV Ondansetron HCl (ZOFRAN) 4 MG Q4H PRN PRN IV Polyethylene Glycol (MIRALAX) 17 GM DAILY PRN MI N PO Potassium Chloride (K-DUR) 40 MEQ DAILY PRN PRN PO Potassium Phos/Sodium Phos (PHOS-NAK PACKET) 2 P KT DAILY PRN PRN PO (CKD ) Simethicone (MYLICON) 160 MG Q6H PRN PRN PO Trazodone HCl (DESYREL) 50 MG BEDTIME PRN PRN PO Physical Exam General appearance: alert, awake, oriented Neck: no JVD Cardiovascular: CV assessment: irregularly irregular Respiratory: clear to auscultation Psychiatry: normal affect, normal judgment/insig ht, normal mood Results Findings/Data: Laboratory Tests 12/17 404 Chemistry Sodium (133 - 144 mmol/L) 136.0 Potassium (3.5 - 5.1 mmol/L) 4.6 Chloride (95 - 105 mmol/L) 104 Carbon Dioxide (21 - 32 mmol/L) 27 Anion Gap (4.0 - 15.0 GAP calc) 5.0 BUN (7 - 18 MG/DL) 16 Creatinine (0.55 - 1.30 MG/DL) 1.00 Glomerular Filtr Rate (>60 estGFR) 75 Glucose (70 - 110 MG/DL) 143 H Calcium (8.5 - 10.1 MG/DL) 8.0 L Total Bilirubin (0.00 - 1.00 MG/DL) 0.62 Direct Bilirubin (0.00 - 0.30 MG/DL) 0.14 Indirect Bilirubin (0.2 - 1.3 MG/DL) 0.48 AST (15 - 37 Unit/L) 35 ALT (12 - 78 Unit/L) 24 Total Alk Phosphatase (45 - 117 Unit/L) 63 Total Protein (6.4 - 8.2 G/DL) 5.5 L Albumin (3.4 - 5.0 G/DL) 3.1 L Albumin/Globulin Ratio (1.2 - 2.2 RATIO) 1.3 Specimen Appearance (1 NORMAL Index/DL) 1 SIMON L <2 MG Specimen Hemolysis (1 NORMAL Index/DL) 4 SMALL 50-200 MG H Laboratory Tests 12/17 404 Coagulation PT (9.4 - 12.5 SECONDS) 24.6 *H INR (0.88 - 1.13 INR Unit) 2.21 H Laboratory Tests 12/17 404 Hematology WBC (4.1 - 12.1 K/mm3) 42.4 H RBC (3.8 - 5.5 M/mm3) 3.64 L Hgb (10.6 - 15.8 G/DL) 11.8 Hct (31.8 - 47.4 %) 35.1 MCV (80.1 - 101.1 fL) 96.4 MCH (25.3 - 35.3 pg) 32.4 MCHC (32.7 - 35.1 G/DL) 33.6 RDW (12.2 - 16.4 %) 13.7 Plt Count (155 - 337 K/mm3) 78 L MPV (7.6 - 10.4 fL) 10.6 H Gran % (37.8 - 82.6 %) 11.5 L Lymph % (Auto) (14.1 - 45.4 %) 86.2 H Wood % (Auto) (2.5 - 11.7 %) 1.4 L Eos % (Auto) (0.0 - 6.2 %) 0.3 Baso % (Auto) (0.0 - 2.6 %) 0.3 Gran # (2.0 - 13.7 k/mm3) 4.87 Lymph # (Auto) (0.6 - 3.8 K/mm3) 36.57 H Wood # (Auto) (0.11 - 0.59 K/mm3) 0.60 H Eos # (Auto) (0.0 - 0.4 K/mm3) 0.14 Baso # (Auto) (0.0 - 0.1 K/mm3) 0.11 H Add Manual Diff (CRITERIA DIFF/SCN) MAN DIFF IN DICATED Total Counted (100 #CELLS) 100 Immature Gran % (0.0 - 2.0 %) 0.3 Seg Neutrophils % (40 - 75 %) 11 L Lymphocytes % (Manual) (12.6 - 43.5 %) 84 H Atypical Lymphs % (0 - 0 %) 2 H Monocytes % (Manual) (4.2 - 12.7 %) 2 L Basophils % (Manual) (0 - 2.6 %) 1 Nucleated RBC % (0.0 - 1.0 /100WBC%) 0.0 Nucleated RBCs # (0.00 - 0.05 K/mm3) 0.00 Smudge Cells (NONE ON SCAN) MODERATE H Platelet Estimate (ADEQUATE ON SCAN) MOD DECR L Ovalocytes (NONE ON SCAN) FEW Radiology Data: Recent Impressions: RADIOLOGY - XR HIP W/PEL UNI 2+V LT 12/17 0322 Report Impression - Status: SIGNED Entered: 12/17/2022 0349 Impression: Comminuted left femoral intertrochanteric fractu re. Impression By: Nadia Navarro RADIOLOGY - XR CHEST 1 V 12/17 032 Report Impression - Status: SIGNED Entered: 12/17/2022 0350 IMPRESSION: No active pulmonary findings. Impression By: Nadia Navarro CAT SCAN - CT HEAD/BRAIN W/O CONT 12/17 0345 Report Impression - Status: SIGNED Entered: 12/17/2022 035 Impression: No acute intracranial CT findings. Impression By: Nadia Navarro CAT SCAN - CT PELVIS W/O CONTRAST 12/17 035 Report Impression - Status: SIGNED Entered: 12/17/2022 0412 IMPRESSION: Comminuted and impacted left femoral intertrocha nteric fracture with distracted fragments. Intramuscular edema of the proximal thigh muscle s. Extensive partially visualized retroperitoneal, iliac chain and bilateral inguinal chain lymphadenopathy with gonsalez spected splenomegaly. Follow-up complete CT of the abdomen and pelvis is recommended. Impression By: Nadia Navarro RADIOLOGY - XR FEMUR MIN 2 VW LT 12/17 0515 Report Impression - Status: SIGNED Entered: 12/17/2022 0534 Impression: Comminuted left femoral intertrochanteric fractu re. Impression By: Nadia Navarro Results: labs reviewed, vital signs reviewed Diagnosis, Assessment Plan Free Text DxA P Notes Free Text DxA P Notes: 1. A-Fib -Continue home medications -Resume Xarelto when appropriate -Echo to asssess structure, function, and wall m otion 2. HTN -Continue home medications -Goal SBP<140 -B/P's will be monitored at regular intervals wi th medications adjusted accordingly 3. HLD -Continue Statin If Echo displays no high ris k indications, patient can be cleared at a moderate risk for surgery, and Cardio logy will S/O at that time. If questions or concerns arise, please contact us. Patient would benefit with an OP F/U with his Cinder Crew Worker in 1-2 weeks post discharge, thank you. Case discussed with patient, family, RN, and Ade Bear 12/17/22 1558: Attestations Physician Attestation Agree w/findings plan: I agree with the findings and plan as documented by Bishnu De Luna NP at 1403 Electronically Signed by Ade Sotelo MD on at 1556 RPT #:[id number] END OF REPORT 2022-12-17 06:20:00-00:00 [id number] [address] PATIENT NAME: RENETTA FERNANDEZ ADMIT DATE: 3 ACCOUNT NO: [id number] ROOM NO: [id number] AGE: 82 REPORT TYPE: eECHOCARDIOGRAM REPORT SEX: M ADMITTING PHYSICIAN:Ra Foreign Gaona MD ATTENDING PHYSICIAN:Ra Foregin Gaona MD + + : : : : [facility] : : Echo Lab + + [address] [place] [address] [place] [phone] + :Name :RENETTA FERNANDEZ Study Date :12/17/2022, 6:20 AM Study Location: : :MRN: :[id number] : :URN :[id number] BP :98 / 54 mmHg : : Height: : : Weight : : : :1940 (MM/DD/YYYY) Gender :Male : :Age :82 Years HR : : :Reason For Study : HIP FX / PRE-OP CLEARANCE B SA : : :History: : ++ : MMode/2D Measurements Calculations : : ::Ao root diam :3.7 cm : ::LA dimension :5.9 cm IVSd :0.96 cm : ::LVIDd :4.7 cm PATIENT NAME: RENETTA FERNANDEZ 5188 FS:35.5 % : ::LVIDs :3.0 cm EDV(Teich) :102.2 ml : ::LVPWd : 0.96 cm ESV(Teich) :35.8 ml : ::RVDd :3.9 cm EF(Teich):65.0 % : ::Ao root area :10.9 cm LVOT diam :1.92 cm : :: LVOT area :2.9 cm : : + Doppler Measurements Calculations + :MV E max rosa elena :140.6 cm/sec MV V2 max :122.8 cm/sec : :MV A max rosa elena :27.6 cm/sec MV max PG :6.0 mmHg : :MV E/A :5.1 MV V2 mean :51.0 cm/sec : : MV mean PG :1.70 mmHg : : MV V2 VTI :34.1 cm : : MVA(VTI) :2.33 cm : : Ao V2 max :129.9 cm/sec : : Ao max PG :6.8 mmHg : : Ao V2 VTI :30.8 cm : : FIONA(I,D) :2.6 cm : : FIONA(V,D) :2.43 cm : PATIENT NAME: RENETTA FERNANDEZ 5188 : LV V1 max PG :4.7 mmHg : : LV V1 max :108.9 cm/sec : :SV(LVOT) : 79.5 ml : :TR max rosa elena :217.1 cm/sec : :TR max PG :19.0 mmHg : + Summary Statements A complete two-dimensional transthoracic echoca rdiogram was performed (2D, M-mode, Doppler and color flow Doppler). The lino dy was technically limited. Left ventricular systolic function is normal. Ejection Fraction = 60-65%. The right ventricle is mildly dilated. There is a pacemaker lead in the right ventricl e. The left atrium is moderately dilated. The right atrium is mild to moderately dilated. There is mild mitral regurgitation. There is trace tricuspid regurgitation. Right ventricular systolic pressure is normal. Trace pulmonic valvular regurgitation. Left Ventricle The left ventricle is grossly normal size. Ther e is normal left ventricular wall thickness. Left ventricular systolic functi on is normal. Ejection Fraction = 60-65%. The left ventricular wall motion is normal. Right Ventricle The right ventricle is mildly dilated. There is a pacemaker lead in the right ventricle. Atria The left atrium is moderately dilated. The righ t atrium is mild to moderately dilated. Mitral Valve The mitral valve is grossly normal. There is mi ld mitral regurgitation. Tricuspid Valve The tricuspid valve is not well visualized, bu t is grossly normal. There is trace tricuspid regurgitation. Right ventricular systolic pressure is normal. Aortic Valve The aortic valve opens well. Pulmonic Valve The pulmonic valve is not well visualized. Trac e pulmonic valvular regurgitation. Pericardium/Pleural There is no pericardial effusion. Electronically Signed By: Last Changed By Name :Ade Sotelo MD Last Changed Date Time :12/17/2022, 9:42 AM PATIENT NAME: RENETTA FERNANDEZ 5188 Ordering Physician :Ra Jimenez Referring Physician: Ra Jimenez Performed By : Feliz Chaves Electronically Signed by Ade Sotelo MD on 0 12/17/22 at 0942 PATIENT NAME: RENETTA FERNANDEZ 5188 2022-12-17 05:45:00-00:00 [id number] [address] PATIENT NAME: RENETTA FERNANDEZ ADMIT DATE: 3 ACCOUNT NO: [id number] ROOM NO: [facility] AGE: 82 REPORT TYPE: ELECTROCARDIOGRAM SEX: M ADMITTING PHYSICIAN:Ra Foreign Gaona MD ATTENDING PHYSICIAN:Ra Foreign Gaona MD Order: [id number] Test Reason : PRE OP Test Date/Time Stamp: TueDec 17 2022 05:45:43 Blood Pressure : / mmHG Vent. Rate : 053 BPM Atrial Rate : 051 BPM P-R Int : 000 ms QRS Dur : 094 ms QT Int : 438 ms P-R-T Axes : 000 076 031 degree s QTc Int : 410 ms Atrial fibrillation with slow ventricula r response and occasional ventricular paced rhythm. ST and T wave abnormality, consider anterolatera l ischemia Abnormal ECG When compared with ECG of 29-NOV-2021 10:04, No significant change was found Confirmed by SIMIN LILLY MD ([id number]) on 2022 9:06:13 PM Referred By: Ra Gaona Confirmed by:SIMIN CONCEPCION MD at 2106 PATIENT NAME: RENETTA FERNANDEZ 5188 2022-12-17 04:02:00-00:00 [facility] ([facility]) History Physical - Adult REPORT#:[id number] REPORT STATUS: Signed DATE:12/17/22 TIME: 401 PATIENT: RENETTA FERNANDEZ UNIT #: [id number] ROOM/BED: [address] : 40 AGE: 82 SEX: M ATTEND: Ra Foreign Gaona MD ADM AUTHOR: Bishnu Louis DO R1 * ALL edits or amendments must be made on the [employer]/computer document * Bishnu Louis 12/17/22 0402: History of Present Illness HPI HPI: Pt is 82yo M with PMH of bradycardia, chronic af ib, sick sinus syndrome s/p pacemaker, on xarelto, chron ic lymphocytic leukemia (not on tx) here with lt hip pain after a fall that occurred this night. Pt r eports he was going to the bathroom in the dark and did not realize the door was closed. Ran into door and fell back onto lt hip. Since then has been havin g pain, worse with movement. Reports hitting his head but denies LOC. Denies chest pain, abdominal pain, shortness of breath, or nausea/vomiting. Pt is on xarelto but unsure of why he is taking it. Pt reports for CLL, he has been seeing heme/onc Dr. Flowers in [place] but they are just monitoring it. History Additional medical history: HTN, Dyslipidemia, BPH, Pacemaker Additional family history: N/C Alcohol use: Alcohol use Smoking status for patients 13 years old or olde r: Former Smoker Medication/Allergy-Vaccine Hx Allergies: Coded Allergies: No Known Allergies (11/28/21) Review of Systems Constitutional: Denies: chills, fever. Respiratory: Denies: WINTER (dyspnea on exertion), productive co ugh (sputum), SOB, wheezing. Cardiovascular: Denies: chest pain, edema. GI: Denies: abdominal pain, nausea, vomiting. Neuro: Denies: change in LOC, confusion, headache, ligh theaded. Free Text ROS Notes Free Text ROS Notes: See HPI Physical Exam VS/I O Vital Signs: Date Time Temp Pulse Resp B/P B/P Pulse O2 O2 F low FiO2 Mean Ox Delivery Rate 12/17 0322 98.1 58 15 115/62 79 94 Nasal 2 cannula 24 hour I O ending at 0700: 12/17 0700 12/16 1900 Intake Total Output Total Balance Patient 100 kg Weight Weight Stated/Reported Measurement Method PATIENT WEIGHT: Weight (lb): Weight (oz): Weight (kg): 100.000 General appearance: alert, awake, oriented Cardiovascular: regular rate rhythm, normal hear t sounds Respiratory: clear to auscultation, no distress Abdomen/GI: soft, non-tender Extremities: LLE shortened and externally rotate d Neuro/PHYSICIAN OFFICE SPECIALIST: alert, oriented X 3 Diagnosis, Assessment Plan Free Text DxA P Notes Free Text DxA P Notes: Pt is 82yo M with PMH of bradycardia, chronic af ib, sick sinus syndrome s/p pacemaker, chronic lymphocytic leukemia (not on tx) admitted for lt hip fx Lt comminuted/impacted intertrochanteric fx - VS reviewed - Labs - CBC: wbc 42.4, hgb 11.8, plt 78 - CMP: Na 136, K 4.6, Cr 1.00, glucose 143 - vit D 25-hydroxy pending - Imaging - Plan - ortho consulted - cardiology consulted - echo pending - on tele, currently NPO - hold xarelto History of CLL Thrombocytopenia - heme/onc consulted - Discussed surgery okay if platelets >50,000 bu t recommend waiting 48hours after stoping xarelto, and pt will need post-op abx 2/2 risk of infection Comorbidities: - continue home tamsulosin, and gabapentin; hold home lisinopril PPx: SCD, hold xarelto Diet: NPO Dispo: clinical improvement, specialist recs Ra foreign Gaona 12/17/22 1339: Attestations Teaching Physician Attestation F/U visit w/o resident: I personally saw the patient and reviewed the re sident's note. I . . . agree with the resident's findings and plan. Electronically Signed by Bishnu Louis DO R1 on 0 12/17/22 at 0902 at 1340 RPT #:[id number] END OF REPORT 2022-12-17 03:27:00-00:00 [facility] ([facility]) EMERGENCY PROVIDER REPORT REPORT#:[id number] REPORT STATUS: Signed DATE:12/17/22 TIME: 326 PATIENT: RENETTA FERNANDEZ UNIT #: [id number] ROOM/BED: [address] AGE: 82 SEX: M PCP PHYS: No Primary or Family Ph ysician SERVICE AUTHOR: Ranjan Womack MD * ALL edits or amendments must be made on the [employer] document * HPI-Trauma Minor/Fall Free Text HPI Notes Free Text HPI Notes 82-year-old male who was walking to the bathroom and did not realize that the door was closed so he hit the door on the side o f it and fell backwards and landed on his left hip and h it the back of his head. He hit his left hip pretty hard. Patient was unable to get up and brought i n by EMS. No LOC. Patient is on Xarelto because of procedures done to his vei ns and fear of him developing blood clots. General Initial Greet Date/Time 12/17/22 0322 Presentation Chief Complaint Fall Past Medical History - Adult Stated Complaint FALL Allergies Coded Allergies: No Known Allergies (11/28/21) Home Medications Active Scripts CEPHALEXIN (KEFLEX) 500 MG PO Q6H 5 Days #20 CAPS Prov: 11/29/21 Reported Medications RIVAROXABAN (XARELTO) 20 MG PO DAILY FINASTERIDE (PROSCAR) 5 MG PO BEDTIME LISINOPRIL (ZESTRIL) 5 MG PO DAILY TAMSULOSIN ER (FLOMAX) 0.4 MG PO DAILY GABAPENTIN (NEURONTIN) 300 MG PO BEDTIME Additional Medical History HTN, Dyslipidemia, BPH, Pacemaker Additional Family History N/C Alcohol Use Alcohol use Smoking status for patients 13 years old or olde r: Former Smoker Physical Exam Vital Signs Vital Signs First Documented: Result Date Time Pulse Ox 94 12/17 0322 B/P 115/62 12/17 0322 B/P Mean 79 12/17 0322 O2 Delivery Nasal cannula 12/17 0322 O2 Flow Rate 2 12/17 0322 Temp 98.1 12/17 0322 Pulse 58 12/17 0322 Resp 15 12/17 0322 Last Documented: Result Date Time Pulse Ox 94 12/17 0322 B/P 115/62 12/17 0322 B/P Mean 79 12/17 0322 O2 Delivery Nasal cannula 12/17 0322 O2 Flow Rate 2 12/17 0322 Temp 98.1 12/17 0322 Pulse 58 12/17 0322 Resp 15 12/17 0322 Review of Vital Signs Reviewed Basic Physical Exam Basic PE EYES: PERRL, conj c lear, ENT: Membranes moist, RESP: No resp distress, CV: Reg rate rhythm, ABD: Soft/non-tende r, EXT: No gross abnormality, SKIN: No rashes, warm/dry, NEURO: alert oriented, NEURO: gross movement NL, PSYCH: NL thought content Focused PE General/Const General/Const Awake, Alert, No acute di stress, Well appearing, Well developed , Well hydrated, Well nourished, Cooperative, No t toxic appearing MS Head Head Atraumatic, Normocephalic MS Neck Neck Atraumatic, Supple, No meningismus , Full range of motion, No adenopathy, No swelling, Non-tender, No midline vert ebral tend, No masses, No crepitus, No JVD, No carotid bruit, Thyroid NL, No tracheal d eviation MS Lower Extrem Text/Dict Notes Tenderness left hip with deformity. Nl nwueovasc ular exam Re-Evaluation MDM Free Text MDM Notes Free Text MDM Notes Discussed the findings with the patient and his . Will need to be admitted for surgery. Discussed with orthopedist. Consultation Consultation Referral/Consult Name Sixto Ford MD Strategic Sourcing Manager Called Orthopedic Strategic Sourcing Manager Discussed with wig sales consultant Requested Call Time 345 Requested Call Date 12/17/22 Call Returned Call returned Call Returned Time 346 Call Returned Date 12/17/22 Free Text Consult Notes Agrees with admission and need for surgery. Patient Discharge Departure Vital Signs/Condition Vital Signs First Documented: Result Date Time Pulse Ox 94 12/17 0322 B/P 115/62 / 0322 B/P Mean 79 12/17 0322 O2 Delivery Nasal cannula 12/17 321 O2 Flow Rate 2 12/17 0322 Temp 98.1 12/17 0322 Pulse 58 12/17 0322 Resp 15 12/17 0322 Last Documented: Result Date Time Pulse Ox 94 12/17 0322 B/P 115/62 12/17 0322 B/P Mean 79 12/17 0322 O2 Delivery Nasal cannula 12/17 0322 O2 Flow Rate 2 12/17 0322 Temp 98.1 12/17 0322 Pulse 58 12/17 0322 Resp 15 12/17 0322 All vital signs available at the time of this en try have been reviewed. Condition Guarded Clinical Impression Clinical Impression Primary Impression: Hip fracture Disposition Decision Hospitalize Hosp Physician Name Ra Foreign Gaona MD [facility] Physician Hospitalist (Spoke with resident ) Request Time 346 Request Date 12/17/22 )( Accepts Hospitalization Yes )( Reason for Hospitalization Hip fracture )( Accepted Time 346 )( Accepted Date 12/17/22 Electronically Signed by Ranjan Womack MD on at 2139 [facility] #:[id number] END OF REPORT 2021-11-29 10:53:00-00:00 [facility] ([facility]) Hospitalist Discharge Summary REPORT#:[id number] REPORT STATUS: Signed DATE:11/29/21 TIME: 1053 PATIENT: RENETTA FERNANDEZ UNIT #: [id number] ROOM/BED: [address] : 40 AGE: 81 SEX: M ATTEND: Ivania Corey MD ADM AUTHOR: Ciara Salmeron MD R1 * ALL edits or amendments must be made on the [employer]/computer document * Ciara Salmeron 11/29/21 1053: General Information Problem List/A P: 1. S/P cardiac pacemaker procedure A P * performed on 11/28 Plan: 1. awaiting clearance by cardiology 2. Chronic a-fib A P Plan: 1. resume anticoagulation if cleared by cardiol ogy 3. Sick sinus syndrome 4. Chronic lymphocytic leukemia A P * not receiving treatment at this time; WBC elev ated to 34 Plan: 1. encourage outpt f/u 5. RAFFI on CPAP Date of admission: Observation Start Date: 11/28/21 Date of admission: 11/28/21 Discharge date: 11/29/21 Hospital course: Pt is an 81 y/o man w/hx of chronic lymphocytic leukemia( not on any meds), RAFFI, chronic afib and sick sinus syndrome who presented here for pacemaker placement after his head of partner development, Dr. Quezada, observed pauses on pt's holter monitor. Pt underwent pacemaker placement on 11/28 and recove red uneventfully from the procedure. Pt was cleared fo r d/c by head of partner development on 11/29. Pt was advised to f/u w/PCP and his head of partner development. Pt was ameanble to t he plan. Pt. condition on discharge: improved, stable Med Rec Med Rec Discharge meds: Continue taking these medications: RIVAROXABAN (XARELTO) 20 MG TAB 20 MILLIGRAM ORAL DAILY. FINASTERIDE (PROSCAR) 5 MG TAB 5 MILLIGRAM ORAL BEDTIME. LISINOPRIL (ZESTRIL) 5 MG TAB 5 MILLIGRAM ORAL DAILY. TAMSULOSIN ER (FLOMAX) 0.4 MG CAP.SR.24H 0.4 MILLIGRAM ORAL DAILY. GABAPENTIN (NEURONTIN) 300 MG CAP 300 MILLIGRAM ORAL BEDTIME. Start taking the following new medications: CEPHALEXIN (KEFLEX) 500 MG CAP 500 MILLIGRAM ORAL EVERY 6 HOURS. Days = 5 Qty = 20 No Refills Objective VS/I O Last Documented: Result Date Time Pulse Ox 96 11/29 1046 B/P 114/68 11/29 1046 B/P Mean 83.6 11/29 1046 O2 Delivery Room air 11/29 1046 Temp 97.5 11/29 1046 Pulse 59 11/29 1046 Resp 18 11/29 1046 General appearance: alert, awake Head/Eyes: atraumatic, clear cornea, EOMI, simon l conjunctiva/sclera ENT: moist mucosal membranes Neck: full range of motion, non-tender, supple/n o meningismus Cardiovascular: normal heart sounds, regular rat e rhythm, Left arm in sling dry bandage over L chest inferior to clavicle Respiratory: aerating well, clear to auscultatio n, symmetric expansion, no distress Abdomen: non-tender, normal bowel sounds, soft, no distention Extremities: moves all, no cyanosis, no edema Musculoskeletal: normal inspection Neuro/PHYSICIAN OFFICE SPECIALIST: alert, oriented X 3, normal speech, n o motor deficits, no sensory deficits Skin: dry, normal color Psychiatry: normal affect, normal judgment/insig ht Results Findings/Data: Laboratory Tests: 11/29 0600 Chemistry Sodium (137 - 145 MMOL/L) 138 Potassium (3.5 - 5.1 MMOL/L) 3.8 Chloride (98 - 107 MMOL/L) 105 Carbon Dioxide (22 - 30 MMOL/L) 26 BUN (9 - 20 MG/DL) 14 Creatinine (0.66 - 1.25 MG/DL) 0.70 Glomerular Filtr Rate > 60 Glucose (74 - 106 MG/DL) 108 H Calcium (8.4 - 10.2 MG/DL) 8.3 L Hematology WBC (3.8 - 9.8 K/MM3) 34.4 *H RBC (3.95 - 5.67 M/MM3) 4.27 Hgb (12.4 - 16.7 G/DL) 13.7 Hct (35.9 - 49.5 %) 41.6 MCV (81.7 - 96.1 fL) 97 H MCH (27.6 - 33.2 pg) 32.1 MCHC (32.9 - 35.5 %) 32.9 RDW (12.1 - 15.2 %) 13.2 Plt Count (129 - 368 K/MM3) 77 L Neut # (Auto) (2.0 - 7.6 K/mm3) 3.13 Lymph # (Auto) (1.0 - 3.8 K/mm3) 28.77 H Wood # (Auto) (0.1 - 0.8 K/mm3) 2.13 H Eos # (Auto) (0.0 - 0.2 K/mm3) 0.17 Baso # (Auto) (0.0 - 0.2 K/mm3) 0.12 Total Counted (#CELLS) 130 Seg Neutrophils % (36.2 - 73.8 %) 20.7 L Band Neutrophils % (0 - 10 %) 0.0 Lymphocytes % (Manual) (12.9 - 45.1 %) 63.1 H Atypical Lymphs % (0 - 0 %) 11.7 H Monocytes % (Manual) (0 - 11 %) 4.5 Nucleated RBCs # (Man) (0.0 - 0.1 K/mm3) 0.00 Smudge Cells (NONE) MODERATE Platelet Estimate (ADEQUATE) DECREASED Plt Morphology Comment (NORMAL) NORMAL Radiology data: Recent Impressions: RADIOLOGY - XR CHEST 1V 11/29 517 Report Impression - Status: SIGNED Entered: 11/29/2021 0639 IMPRESSION: 1. Unchanged chest radiograph. Impression By: [email or web address] - Antoni Hassan MD Discharge Instructions PCP PCP follow-up: PCP: Lora Quezada MD Discharge to: Home/Self Care Additional Discharge Routines: PCP Follow-Up, Co nsultant Follow-Up Diet: Cardiac Prescriptions: e-prescribe Discharge management: less than 30 mins, face to face encounter Time spent: Time spent on patient care (minutes): 15 Follow-up Appointments PCP follow-up: PCP: Lora Quezada MD PCP follow up timeframe: In 1-2 weeks Consulting provider 1: Provider 1: Lora Quezada MD Specialty: CardiologyInterventional Consult follow up timeframe: In 1-2 weeks Quality: Discharge Current Medications Current medication review: I attest that the foregoing medication list in t medical record is true, accurate, and complete to the best of my knowled Brittany Molina 11/29/21 618: Attestations Teaching Physician Attestation F/U visit w/ resident: I saw the patient with the resident and . . . agree with the resident's findings and plan. Electronically Signed by Ciara Salmeron MD R1 o n 11/29/21 at 1109 Electronically Signed by Brittany Apodaca MD on at 1737 RPT #:[id number] END OF REPORT 2021-11-29 10:04:00-00:00 [id number] [place] [address] PATIENT NAME: RENETTA FERNANDEZ ADMIT DATE: 2 ACCOUNT NO: [id number] ROOM NO: [facility] AGE: 81 REPORT TYPE: ELECTROCARDIOGRAM SEX: M ADMITTING PHYSICIAN:Ivania Corey MD ATTENDING PHYSICIAN:Ivania Corey MD Order: [id number] Test Reason : S/P PPI Test Date/Time Stamp: TueNov 29 2021 10:04:18 Blood Pressure : / mmHG Vent. Rate : 059 BPM Atrial Rate : 416 BPM P-R Int : 000 ms QRS Dur : 098 ms QT Int : 424 ms P-R-T Axes : 000 068 -13 degree s QTc Int : 419 ms Atrial fibrillation with slow ventricular respon se with occasional ventricular-paced complexes ST and T wave abnormality, consider lateral isch emia Abnormal ECG When compared with ECG of 29-NOV-2021 04:06, Vent. rate has decreased BY 54 BPM Confirmed by LORA QUEZADA ([id number]) on 12/01/2021 6:07:51 AM Referred By: Self Referred Confirmed by:LORA SHANNON at 0607 PATIENT NAME: RENETTA FERNANDEZ 2538 2021-11-29 09:01:00-00:00 [facility] ([facility]) Cardiology Progress Note REPORT#:[id number] REPORT STATUS: Signed DATE:11/29/21 TIME: 900 PATIENT: RENETTA FERNANDEZ UNIT #: [id number] ROOM/BED: 435-A : 40 AGE: 81 SEX: M ATTEND: Ivania Corey MD ADM AUTHOR: Amy Arce NP * ALL edits or amendments must be made on the el The Original [employer]/computer document * Subjective Free Text Subj Notes Free Text Subj Notes: Patient assessed at bedside Denies chest pain, SOB or palpitations Objective General VS/I O: Vital Signs: Date Time Temp Pulse Resp B/P B/P Pulse O2 O2 F low FiO2 Mean Ox Delivery Rate 11/29 0644 98.1 55 16 120/69 86.0 95 Room air 11/29 0437 97.7 55 18 114/64 80.3 91 Room air 11/29 0033 98.2 55 18 112/67 82.2 96 11/28 1817 97.9 57 18 93/51 64.6 94 Room air 11/28 1612 98.1 55 16 99/54 69.2 94 Room air PATIENT WEIGHT: Weight (lb): Weight (oz): Weight (kg): Medications: Active Meds + DC'd Last 24 Hrs Lisinopril (PRINIVIL) 5 MG DAILY PO Tamsulosin HCl (FLOMAX) 0.4 MG DAILY PO Finasteride (PROSCAR) 5 MG BEDTIME PO Gabapentin (NEURONTIN) 300 MG BEDTIME PO Cefazolin Sodium (ANCEF) 1 GM Q8H IV (DC) Sodium Chloride (SODIUM CHLORIDE 0.9%) 10 ML Acetaminophen (TYLENOL) 650 MG Q4H PRN PRN PO Hydrocodone Bitart/Acetaminophen (NORCO 5/325 TA BLET (C-II)) 1 TAB Q4H PRN PRN PO Ondansetron HCl (ZOFRAN) 4 MG Q8H PRN PRN IV Cefazolin Sodium (ANCEF) 2 GM PREOP IV (CKD) Sodium Chloride (SODIUM CHLORIDE 0.9%) 1,000 ML Q10H IV (DC) Post-op: day 2 Physical Exam General appearance: alert, awake, oriented, no a cute distress Head/Eyes: atraumatic, normocephalic ENT: moist mucosal membranes Neck: no bruit/NL carotids, no JVD, no lymphaden opathy Cardiovascular: CV assessment: regular rate and rhythm, BP puls es = bilaterally, normal heart sounds Respiratory: clear to auscultation, no distress Abdomen: soft, non-tender, normal bowel sounds Lower extremity: LE assessment: no edema, 2+ pedal pulse Skin: normal color Wound/incision: Location: Left subclavian Site condition: dressing clean dry, dressing in tact Psychiatry: normal affect, normal judgment/insig ht Results Findings/Data: Laboratory Tests 11/29 599 Chemistry Sodium (137 - 145 MMOL/L) 138 Potassium (3.5 - 5.1 MMOL/L) 3.8 Chloride (98 - 107 MMOL/L) 105 Carbon Dioxide (22 - 30 MMOL/L) 26 BUN (9 - 20 MG/DL) 14 Creatinine (0.66 - 1.25 MG/DL) 0.70 Glomerular Filtr Rate > 60 Glucose (74 - 106 MG/DL) 108 H Calcium (8.4 - 10.2 MG/DL) 8.3 L Laboratory Tests 11/29 599 Hematology WBC (3.8 - 9.8 K/MM3) 34.4 *H RBC (3.95 - 5.67 M/MM3) 4.27 Hgb (12.4 - 16.7 G/DL) 13.7 Hct (35.9 - 49.5 %) 41.6 MCV (81.7 - 96.1 fL) 97 H MCH (27.6 - 33.2 pg) 32.1 MCHC (32.9 - 35.5 %) 32.9 RDW (12.1 - 15.2 %) 13.2 Plt Count (129 - 368 K/MM3) 77 L Neut # (Auto) (2.0 - 7.6 K/mm3) 3.13 Lymph # (Auto) (1.0 - 3.8 K/mm3) 28.77 H Wood # (Auto) (0.1 - 0.8 K/mm3) 2.13 H Eos # (Auto) (0.0 - 0.2 K/mm3) 0.17 Baso # (Auto) (0.0 - 0.2 K/mm3) 0.12 Total Counted (#CELLS) 130 Seg Neutrophils % (36.2 - 73.8 %) 20.7 L Band Neutrophils % (0 - 10 %) 0.0 Lymphocytes % (Manual) (12.9 - 45.1 %) 63.1 H Atypical Lymphs % (0 - 0 %) 11.7 H Monocytes % (Manual) (0 - 11 %) 4.5 Nucleated RBCs # (Man) (0.0 - 0.1 K/mm3) 0.00 Smudge Cells (NONE) MODERATE Platelet Estimate (ADEQUATE) DECREASED Plt Morphology Comment (NORMAL) NORMAL Radiology data: Recent Impressions: RADIOLOGY - XR CHEST 1V 11/28 1104 Report Impression - Status: SIGNED Entered: 11/28/2021 1125 IMPRESSION: Single lead pacemaker terminates in the right ve ntricle. Cardiomegaly. Moderate central vascular congestion/interstitia l edema. Impression By: Taylor Rankin MD RADIOLOGY - XR CHEST 1V 11/29 0518 Report Impression - Status: SIGNED Entered: 11/29/2021 0639 IMPRESSION: 1. Unchanged chest radiograph. Impression By: Jose Hassan MD Telemetry Interpretation: V-paced Diagnosis, Assessment Plan Free Text DxA P Notes Free Text DxA P Notes: IMPRESSION 1. Sick sinus syndrome s/p pacemaker 2. Chronic atrial fibrillation restart xarelto 3. Chronic lymphocytic leukemia WBC 34.4 PLAN 1. Continue lisinopril and xarelto 2. Ok to discharge. Follow up with Dr. Pilar reeves 1 week Plan discussed with patient at bedside Plan discussed with Dr. Viera at 1016 at 1544 RPT #:[id number] END OF REPORT 2021-11-29 07:05:00-00:00 [facility] ([facility]) Hospitalist Progress Note REPORT#:[id number] REPORT STATUS: Signed DATE:11/29/21 TIME: 704 PATIENT: RENETTA FERNANDEZ UNIT #: [id number] ROOM/BED: [address] : 40 AGE: 81 SEX: M ATTEND: Ivania Corey MD ADM AUTHOR: Ciara Salmeron MD R1 * ALL edits or amendments must be made on the [employer]/computer document * Ciara Salmeron 11/29/21 0705: Subjective Chief complaint: s/p pacemaker placement HPI: Pt is s/p pacemaker placement. No acute events o vernight. When examined this morning, pt was resting comfortably in bed. He c omplained of mild pain at the site of the pacemaker. Review of Systems Constitutional: Denies: chills, fatigue, fever. Respiratory: Denies: productive cough (sputum), SOB, wheezing . Cardiovascular: Denies: chest pain, edema, palpitations. GI: Denies: abdominal pain, nausea, vomiting. All systems rev neg: except as marked Objective General VS/I O: Vital Signs: Date Time Temp Pulse Resp B/P B/P Pulse O2 O2 F low FiO2 Mean Ox Delivery Rate 11/29 0644 98.1 55 16 120/69 86.0 95 Room air 11/29 0437 97.7 55 18 114/64 80.3 91 Room air 11/29 0033 98.2 55 18 112/67 82.2 96 11/28 1817 97.9 57 18 93/51 64.6 94 Room air 11/28 1612 98.1 55 16 99/54 69.2 94 Room air PATIENT WEIGHT: Weight (lb): Weight (oz): Weight (kg): Medications: Active Meds + DC'd Last 24 Hrs Lisinopril (PRINIVIL) 5 MG DAILY PO Tamsulosin HCl (FLOMAX) 0.4 MG DAILY PO Finasteride (PROSCAR) 5 MG BEDTIME PO Gabapentin (NEURONTIN) 300 MG BEDTIME PO Cefazolin Sodium (ANCEF) 1 GM Q8H IV Sodium Chloride (SODIUM CHLORIDE 0.9%) 10 ML Acetaminophen (TYLENOL) 650 MG Q4H PRN PRN PO Hydrocodone Bitart/Acetaminophen (NORCO 5/325 TA BLET (C-II)) 1 TAB Q4H PRN PRN PO Ondansetron HCl (ZOFRAN) 4 MG Q8H PRN PRN IV Fentanyl Citrate (SUBLIMAZE (C-II)) 0 .STK-MED O NE .ROUTE (DC) Lidocaine HCl (XYLOCAINE 1%) 0 .STK-MED ONE .ROU TE (DC) Midazolam HCl (VERSED (C-IV)) 0 .STK-MED ONE .RO [place] (DC) Sodium Chloride (SODIUM CHLORIDE 0.9%) 200 ML .S TK-MED ONE IV (DC) Cefazolin Sodium (ANCEF) 0 .STK-MED ONE .ROUTE ( DC) Iopamidol (ISOVUE-300) 0 .STK-MED ONE .ROUTE (DC ) Cefazolin Sodium (ANCEF) 2 GM PREOP IV (CKD) Sodium Chloride (SODIUM CHLORIDE 0.9%) 1,000 ML Q10H IV (DC) Nutrition assessment: The data set between the solid lines has been im ported from the dietitian's assessment. Any exceptions have been noted under Provider comments. BMI Calculated: Nutrition related diagnosis: Nutrition diagnosis details: Nutrition problem: Nutrition etiology: Nutrition signs and symptoms: Nutrition prescription: Dietitian name: Assessment completed: Provider comments on imported dietitian assessme nt: Physical Exam General appearance: alert, awake Head/Eyes: atraumatic, clear cornea, EOMI, simon l conjunctiva/sclera ENT: moist mucosal membranes Neck: full range of motion, non-tender, supple/n o meningismus Cardiovascular: normal heart sounds, regular rat e rhythm, Left arm in sling dry bandage over L chest inferior to clavicle Respiratory: aerating well, clear to auscultatio n, symmetric expansion, no distress Abdomen: non-tender, normal bowel sounds, soft, no distention Extremities: moves all, no cyanosis, no edema Musculoskeletal: normal inspection Neuro/PHYSICIAN OFFICE SPECIALIST: alert, oriented X 3, normal speech, n o motor deficits, no sensory deficits Skin: dry, normal color Psychiatry: normal affect, normal judgment/insig ht Results Findings/Data: Laboratory Tests 11/29 0600 Chemistry Sodium (137 - 145 MMOL/L) 138 Potassium (3.5 - 5.1 MMOL/L) 3.8 Chloride (98 - 107 MMOL/L) 105 Carbon Dioxide (22 - 30 MMOL/L) 26 BUN (9 - 20 MG/DL) 14 Creatinine (0.66 - 1.25 MG/DL) 0.70 Glomerular Filtr Rate > 60 Glucose (74 - 106 MG/DL) 108 H Calcium (8.4 - 10.2 MG/DL) 8.3 L Laboratory Tests 11/29 06 Hematology WBC (3.8 - 9.8 K/MM3) 34.4 *H RBC (3.95 - 5.67 M/MM3) 4.27 Hgb (12.4 - 16.7 G/DL) 13.7 Hct (35.9 - 49.5 %) 41.6 MCV (81.7 - 96.1 fL) 97 H MCH (27.6 - 33.2 pg) 32.1 MCHC (32.9 - 35.5 %) 32.9 RDW (12.1 - 15.2 %) 13.2 Plt Count (129 - 368 K/MM3) 77 L Neut # (Auto) (2.0 - 7.6 K/mm3) 3.13 Lymph # (Auto) (1.0 - 3.8 K/mm3) 28.77 H Wood # (Auto) (0.1 - 0.8 K/mm3) 2.13 H Eos # (Auto) (0.0 - 0.2 K/mm3) 0.17 Baso # (Auto) (0.0 - 0.2 K/mm3) 0.12 Nucleated RBCs # (Man) (0.0 - 0.1 K/mm3) 0.00 Radiology data: Recent Impressions: RADIOLOGY - XR CHEST 1V 11/28 1104 Report Impression - Status: SIGNED Entered: 11/28/2021 1125 IMPRESSION: Single lead pacemaker terminates in the right ve ntricle. Cardiomegaly. Moderate central vascular congestion/interstitia l edema. Impression By: Taylor Rankin MD RADIOLOGY - XR CHEST 1V 11/29 0518 Report Impression - Status: SIGNED Entered: 11/29/2021 0639 IMPRESSION: 1. Unchanged chest radiograph. Impression By: [email or web address] - Antoni Hassan MD Diagnosis, Assessment Plan Problem List/A P: 1. S/P cardiac pacemaker procedure * performed on 11/28 Plan: 1. awaiting clearance by cardiology 2. Chronic a-fib Plan: 1. resume anticoagulation if cleared by cardiol montsey 3. Sick sinus syndrome 4. Chronic lymphocytic leukemia * not receiving treatment at this time; WBC elev ated to 34 Plan: 1. encourage outpt f/u 5. RAFFI on CPAP Quality: Gen Med Crit Care VTE Prophylaxis VTE prophylaxis initiated: yes Current Medications Current medication review: I attest that the foregoing medication list in t he medical record is true, accurate, and complete to the best of my knowled ge. Advanced Care Plan 65 or Older Discussion included: code status Brittany Apodaca 11/29/21 1735: Attestations Teaching Physician Attestation F/U visit w/ resident: I saw the patient with the resident and . . . agree with the resident's findings and plan. Electronically Signed by Ciara Salmeron MD R1 o n 11/29/21 at 0954 Electronically Signed by Brittany Apodaca MD on at 1737 RPT #:[id number] END OF REPORT 2021-11-29 04:06:00-00:00 [id number] [address] PATIENT NAME: RENETTA FERNANDEZ ADMIT DATE: 2 ACCOUNT NO: [id number] ROOM NO: [facility] AGE: 81 REPORT TYPE: ELECTROCARDIOGRAM SEX: M ADMITTING PHYSICIAN:Ivania Corey MD ATTENDING PHYSICIAN:Ivania Corey MD Order: [id number] Test Reason : S/P PPI Test Date/Time Stamp: TueNov 29 2021 04:06:30 Blood Pressure : / mmHG Vent. Rate : 113 BPM Atrial Rate : 113 BPM P-R Int : 000 ms QRS Dur : 174 ms QT Int : 282 ms P-R-T Axes : 000 -70 097 degree s QTc Int : 386 ms Electronic ventricular pacemaker Abnormal ECG When compared with ECG of 28-NOV-2021 15:31, No significant change was found Confirmed by LORA QUEZADA ([id number]) on 11/29/2021 7:55:56 AM Referred By: Ivania Corey Confirmed by:LORA DIAZ at 0755 PATIENT NAME: RENETTA FERNANDEZ 2538 2021-11-28 17:20:00-00:00 [facility] ([facility]) Hospitalist History Physical REPORT#:[id number] REPORT STATUS: Signed DATE:11/28/21 TIME: 1720 PATIENT: RENETTA FERNANDEZ UNIT #: [id number] ROOM/BED: [address] : 40 AGE: 81 SEX: M ATTEND: Ivania Corey MD ADM AUTHOR: Brittany Apodaca MD * ALL edits or amendments must be made on the [employer]/computer document * History of Present Illness HPI Chief complaint: s/p pacemaker placement PCP: PCP: Lora Quezada MD HPI: 81 YM with hx of chronic lymphocytic leukemia( n ot on any meds), RAFFI, chronic afib and sick sinus syndrome who was evaluated by dr Quezada for pauses noted on the holter monitor. He did successful single-dave mber MRI compatible permanent pacemaker implantation today. Pt denies any pain or other symptoms post- procedure. Informant/historian: patient, family/other at [facility], referring physician History Past Medical Surgical Hx Patient History: 1. Chronic a-fib 2. Sick sinus syndrome 3. Chronic lymphocytic leukemia 4. RAFFI on CPAP 5. Acoustic neuroma Family History Additional family history: N/C Social History Alcohol use: Alcohol use Smoking status: Smoking status for patients 13 years old or old er: Former Smoker Medication/Allergy-Vaccine Hx Medications: Home Medications: RIVAROXABAN (XARELTO) 20 MG PO DAILY FINASTERIDE (PROSCAR) 5 MG PO BEDTIME LISINOPRIL (ZESTRIL) 5 MG PO DAILY TAMSULOSIN ER (FLOMAX) 0.4 MG PO DAILY GABAPENTIN (NEURONTIN) 300 MG PO BEDTIME Allergies: Coded Allergies: No Known Allergies (11/28/21) Review of Systems Constitutional: Denies: chills, fatigue, fev er, generalized weakness, lethargy, malaise, recent wt loss. Skin: Denies: abrasion, bruising, contusion, diaphores is, ecchymosis, itching, laceration, rash, swelling. Respiratory: Denies: WINTER (dyspnea on exertion), hemoptysis, n on productive cough, parox nocturnal dyspnea, pleurisy, pleuritic pain, pneumonia, productive cough (sputum ), SOB, wheezing. Cardiovascular: Denies: chest pain, WINTER (dyspnea on exer tion), edema, orthopnea, palpitations, parox nocturnal dyspnea. GI: Denies: abdominal pain, anorexia, constipation, diarrhea, dysphagia, GERD, hematemesis, hematochezia, h iatal hernia, melena, nausea, rectal pain, vomiting. : Denies: dysuria, flank pain, frequency, hematuria, nocturia, penile discharge, penile lesion, testicular pa in, testicular swelling, urgency, urinary retention. Musculoskeletal: Denies: arthritis, extremity pain, extremity swe lling, joint pain, joint swelling, lumbar pain, myalgias, neck pain, thor acic pain. Neuro: Denies: bladder dysfunction, bowel dysfunction, change in LOC, confusion, dizziness, focal weakness, gait problem, headach e, lightheaded, numbness, seizure, slurred speech, spinning sensation, syn cope, unable to speak, vision change, weakness. Psych: Denies: agitation, anxiety, auditory hallucinati on, change in mental status, confusion, delusional, depre ssion, homicidal ideation, hostile, insomnia, stress , suicidal ideation, visual hallucination. All systems rev neg: except as noted Physical Exam VS/I O: Vital Signs Date Temp Pulse Resp B/P B/P Mean Pulse Ox FiO2 11/28 98.1 55 16 99/ 69.2 94 Last Documented: Result Date Time Pulse Ox 94 11/29 1611 B/P 99/54 11/28 1612 B/P Mean 69.2 11/28 161 O2 Delivery Room air 11/29 1611 Temp 98.1 11/29 1611 Pulse 55 11/28 161 Resp 16 11/29 1611 Patient Weight and BMI Weight (kg): BMI: General appearance: alert, awake, oriented Head/Eyes: atraumatic, clear cornea, EOMI, simon l conjunctiva/sclera ENT: moist mucosal membranes Neck: full range of motion, non-tender, supple/n o meningismus Cardiovascular: normal heart sounds, regular rat e rhythm, Left arm in sling dry bandage on left chest Respiratory: aerating well, clear to auscultatio n, symmetric expansion, no distress Abdomen: non-tender, normal bowel sounds, soft, no distention Extremities: moves all, no cyanosis, no edema Musculoskeletal: normal inspection Neuro/PHYSICIAN OFFICE SPECIALIST: alert, oriented X 3, normal speech, n o motor deficits, no sensory deficits Skin: dry Psychiatry: normal affect, normal judgment/insig ht Results Findings/Data: Laboratory Tests: 11/28 11/28 0510 0456 Chemistry Sodium (137 - 145 MMOL/L) 137 Potassium (3.5 - 5.1 MMOL/L) 4.3 Chloride (98 - 107 MMOL/L) 102 Carbon Dioxide (22 - 30 MMOL/L) 28 BUN (9 - 20 MG/DL) 20 Creatinine (0.66 - 1.25 MG/DL) 0.70 Glomerular Filtr Rate > 60 Glucose (74 - 106 MG/DL) 115 H Calcium (8.4 - 10.2 MG/DL) 9.1 Magnesium (1.6 - 2.3 MG/DL) 2.1 Triglycerides (150 - 199 MG/DL) 119 L Cholesterol (<200 MG/DL) 138 LDL Cholesterol Measurd (0 - 99 MG/DL) 90 HDL Cholesterol (40 - 59 MG/DL) 27 L Coagulation INR (0.86 - 1.14) 1.2 H APTT (26.2 - 35.4 SECONDS) 33.6 PT Patient/Control Mix (9.4 - 12.7 SECONDS) 13 .1 H Hematology WBC (3.8 - 9.8 K/MM3) 30.4 *H RBC (3.95 - 5.67 M/MM3) 4.27 Hgb (12.4 - 16.7 G/DL) 13.6 Hct (35.9 - 49.5 %) 41.0 MCV (81.7 - 96.1 fL) 96 MCH (27.6 - 33.2 pg) 31.9 MCHC (32.9 - 35.5 %) 33.2 RDW (12.1 - 15.2 %) 13.4 Plt Count (129 - 368 K/MM3) 89 L Neut # (Auto) (2.0 - 7.6 K/mm3) 3.29 Lymph # (Auto) (1.0 - 3.8 K/mm3) 24.56 H Wood # (Auto) (0.1 - 0.8 K/mm3) 2.21 H Eos # (Auto) (0.0 - 0.2 K/mm3) 0.15 Baso # (Auto) (0.0 - 0.2 K/mm3) 0.10 Total Counted (#CELLS) 130 Seg Neutrophils % (36.2 - 73.8 %) 21.6 L Band Neutrophils % (0 - 10 %) 0.0 Lymphocytes % (Manual) (12.9 - 45.1 %) 75.2 H Atypical Lymphs % (0 - 0 %) 0.0 Monocytes % (Manual) (0 - 11 %) 0.8 Basophils % (Manual) (0 - 2 %) 2.4 H Nucleated RBCs # (Man) (0.0 - 0.1 K/mm3) 0.00 Platelet Estimate (ADEQUATE) DECREASED Plt Morphology Comment (NORMAL) NORMAL Serology SARS-CoV-2 Ag (Rapid) (Negative) NEGATIVE Laboratory Tests 11/28/21 0510: [Embedded Image Not Available] Radiology data: Recent Impressions: RADIOLOGY - XR CHEST 1V 11/28 1104 Report Impression - Status: SIGNED Entered: 11/28/2021 1125 IMPRESSION: Single lead pacemaker terminates in the right ve ntricle. Cardiomegaly. Moderate central vascular congestion/interstitia l edema. Impression By: MargotEFTaylor Charles MD Diagnosis, Assessment Plan Problem List/A P: 1. S/P cardiac pacemaker procedure done today 11/28/21 will observe overnight arm in sling 2. 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 Sick sinus syndrome 4. Chronic lymphocytic leukemia not on any treatment currently leucocytosis of 30.4 likely sec to that 5. RAFFI on CPAP use cpap at night Quality: [facility] Crit Care VTE Prophylaxis VTE prophylaxis initiated: yes Current Medications Current medication review: I attest that the foregoing medication list in t he medical record is true, accurate, and complete to the best of my knowled ge. Advanced Care Plan 65 or Older Discussion included: code status Electronically Signed by Brittany Apodaca MD on at 1739 RPT #:[id number] END OF REPORT 2021-11-28 15:31:00-00:00 [id number] [place] [id number] PATIENT NAME: RENETTA FERNANDEZ ADMIT DATE: 2 ACCOUNT NO: [id number] ROOM NO: Z.435 AGE: 81 REPORT TYPE: ELECTROCARDIOGRAM SEX: M ADMITTING PHYSICIAN:Ivania Corey MD ATTENDING PHYSICIAN:Ivania Corey MD Order: [id number] Test Reason : AFIB/PPI Test Date/Time Stamp: TueNov 28 2021 15:31:34 Blood Pressure : / mmHG Vent. Rate : 055 BPM Atrial Rate : 059 BPM P-R Int : 000 ms QRS Dur : 170 ms QT Int : 486 ms P-R-T Axes : 000 -73 086 degree s QTc Int : 464 ms Electronic ventricular pacemaker Abnormal ECG When compared with ECG of 28-NOV-2021 11:32, No significant change was found Confirmed by LORA QUEZADA ([id number]) on 11/29/2021 7:47:29 AM Referred By: Self Referred Confirmed by:LORA SHANNON at 0747 PATIENT NAME: RENETTA FERNANDEZ 2538 2021-11-28 11:32:00-00:00 [phone] [id number] [place] [address] PATIENT NAME: RENETTA FERNANDEZ ADMIT DATE: 2 ACCOUNT NO: [id number] ROOM NO: Z.DC4T AGE: 81 REPORT TYPE: ELECTROCARDIOGRAM SEX: M ADMITTING PHYSICIAN:Lora Quezada MD ATTENDING PHYSICIAN:Lora Quezada MD Order: [id number] Test Reason : AFIB/PPI Test Date/Time Stamp: TueNov 28 2021 11:32:31 Blood Pressure : / mmHG Vent. Rate : 055 BPM Atrial Rate : 064 BPM P-R Int : 000 ms QRS Dur : 174 ms QT Int : 500 ms P-R-T Axes : 000 -76 091 degree s QTc Int : 478 ms Electronic ventricular pacemaker When compared with ECG of 28-NOV-2021 05:49, Electronic ventricular pacemaker has replaced At ria fibrillation Confirmed by LORA QUEZADA ([id number]) on 11/28/2021 12:12:42 PM Referred By: Self Referred Confirmed by:LORA SHANNON at 1212 PATIENT NAME: RENETTA FERNANDEZ 2538 2021-11-28 10:46:00-00:00 [id number] [place] [address] PATIENT NAME: RENETTA FERNANDEZ ADMIT DATE: 2 ACCOUNT NO: [id number] ROOM NO: Z.DC4T AGE: 81 REPORT TYPE: CARDIAC CATHETERIZATION REPORT SEX: M ADMITTING PHYSICIAN:Lora Quezada MD ATTENDING PHYSICIAN:Lora Quezada MD PROCEDURE DATE: 11/28/2021 PUPPET ENGINEER: Lora Quezada MD TITLE OF THE PROCEDURE: Single-chamber MRI daren tible permanent pacemaker implantation. INDICATION FOR THE PROCEDURE: Symptomatic bradyc ardia, sick sinus syndrome, chronic atrial fibrillation with pauses. ANESTHESIA: Conscious sedation with Versed and f entanyl. A 1% lidocaine for local anesthesia. ESTIMATED BLOOD LOSS: Minimal. COMPLICATIONS: None. CONTRAST: None. FINAL DIAGNOSIS: Successful single-chamber MRI c ompatible permanent pacemaker implantation. The recommendation is observation overnight. PROCEDURE IN DETAIL: Please see enclosed report in the chart. Dictated By: Lora Quezada MD WT: CATH:SATNAM/JOSIE/JERRI Conf#: [id number]/DID#: [id number] Authenticated by Lora Quezada MD On 11/02 12:13:45 PM at 1213 PATIENT NAME: RENETTA FERNANDEZ 2538 2021-11-28 05:49:00-00:00 [id number] [id number] PATIENT NAME: RENETTA FERNANDEZ ADMIT DATE: 2 ACCOUNT NO: [id number] ROOM NO: Z.DC4T AGE: 81 REPORT TYPE: ELECTROCARDIOGRAM SEX: M ADMITTING PHYSICIAN:Lora Quezada MD ATTENDING PHYSICIAN:Lora Quezada MD Order: [id number] Test Reason : PRE-OP Test Date/Time Stamp: TueNov 28 2021 05:49:25 Blood Pressure : / mmHG Vent. Rate : 050 BPM Atrial Rate : 441 BPM P-R Int : 000 ms QRS Dur : 092 ms QT Int : 440 ms P-R-T Axes : 000 089 058 degree s QTc Int : 401 ms Atrial fibrillation with slow ventricular respon se Abnormal ECG No previous ECGs available Confirmed by LORA QUEZADA ([id number]) on 11/28/2021 11:19:51 AM Referred By: Self Referred Confirmed by:LORA SHANNON at 1119 PATIENT NAME: RENETTA FERNANDEZ 2538 2021-11-27 07:11:00-00:00 [id number] [address] PATIENT NAME: RENETTA FERNANDEZ ADMIT DATE: ACCOUNT NO: [id number] ROOM NO: AGE: 81 REPORT TYPE: HISTORY AND PHYSICAL SEX: M ADMITTING PHYSICIAN: ATTENDING PHYSICIAN:Lora Quezada MD PATIENT NAME: RENETTA FERNANDEZ ADMIT DATE:11/29/19 22 ADMISSION DATE: 11/28/2021 REASON FOR ADMISSION: Single chamber per manent pacemaker implantation for sick sinus syndrome and chronic atrial fibrillation. HISTORY OF PRESENT ILLNESS: Renetta is an 81-year -old patient who I have been following in my clinic since 2011. The patient h as had chronic atrial fibrillation for some time a nd sick sinus syndrome and I have been following him for that regularly over the years. He does have nocturnal pauses. The last Holter monitor showed 59 noc turnal pauses and heart rates going down to 31 with an average heart rate of 54. This is wit hout any medications that will depress his heart rate. The patient was evaluated recent ly and is in need of 2 surgeries, one is eyelid surgery and the other o ne is hemorrhoid surgery and there is a significant concern that the patient will become extremely bradycardic during surgery, so he could not be cleared without a pacemaker, so given the patient's sick sin us syndrome and the need for noncardiac surgery and giving his symptoms and risk factors, he is here for single chamber permanent pacemaker implantation. The patient has symptoms of dyspnea and tiredness. He has had chest pains in the past, not recently. T he patient has had a negative carotid Doppler in 2013, has had an echocardiogr am this week that showed moderate mitral regurgitation, pulmonary hyperte nsion 40 to 50 mmHg, normal ejection fraction and dilated chambers, four dual-chamber dilation. He has had a negative nuclear stress test back in 2018. Xochilt radford was described above. The patient does have a history of sleep apnea f or which he uses CPAP on and off. PAST MEDICAL HISTORY: Remarkable for the above i n addition to BPH, osteoarthritis, sleep apnea as mentioned above. He was evaluated for possible chronic lymphocytic leukemia in the past, has no t had any recent issues with that. He has restless leg syndrome, allergies, a nd hemorrhoids, Parkinson's disease. PAST SURGICAL HISTORY: He has had a brai n surgery for neuroma in the past, has had several bone surgeries, kidney stones, vein surgeries, abscess removal in the past, nothing recently. ALLERGIES: NO KNOWN DRUG ALLERGIES. MEDICATIONS: Gabapentin, finasteride, tamsulosin , Aleve, Advil, Xarelto 20 mg daily is on hold, lisinopril 5 mg daily, carbido pa/levodopa. I started the patient on lisinopril to augment his heart rate. He does not have history of PATIENT NAME: RENETTA FERNANDEZ 2538 hypertension. SOCIAL HISTORY: There is no history of smoking. He does drink alcohol socially. There is no history of street drug use . FAMILY HISTORY: Positive for atherosclerotic car diovascular disease. REVIEW OF SYSTEMS: Remarkable for the above in a ddition to allergies, sleep apnea symptoms, possible COPD symptoms, hemorrho ids, nonspecific numbness and balance problems. No acute GI or symptoms. No TIAs or strokes. PHYSICAL EXAMINATION: GENERAL: Reveals a pleasant elderly male in no a cute distress. VITAL SIGNS: Blood pressure 119/60, pulse 50 and irregular. The heart rate on the EKG was 41, respiratory rate 18 and unlabore d, and temperature afebrile. HEENT: Head, atraumatic and normocephalic. Eyes and ENT examination within normal for age. NECK: Supple. No jugular venous distention, brui ts, or lymphadenopathy. Normal upstroke. LUNGS: Clear and resonant. HEART: Regular rate and rhyt hm with III/ systolic ejection murmur at the left lower sternal border. No gallops. The patient is extremely bradycardic. ABDOMEN: Obese. No tenderness. No organomegaly. No masses or bruits. EXTREMITIES: Varicosities no alexi in lower extremities, more so on the left, 1 to 2+ distal pulses. No cyanosis or clubbing. No ed marianne. NEUROLOGIC: Alert and oriented x3. Examination a ppears to be nonfocal. LABORATORY DATA: Pending. Noninvasive cardiovasc ular workup enclosed. IMPRESSION AND PLAN: This is an 81-year-old mara ent with extreme sick sinus syndrome, bradycardia with chronic atrial fibril lation. The patient's heart rate in the office was 41 on the monitor, it goe s down to 31. He has had several pauses. He is not on any negative chrono tropic medications. He is in need of 2 noncardiac surgeries. He will need a s alexander-chamber permanent pacemaker prior to clearing him for surgery. The recommendation is to proceed with single chamber permanent pacemaker implanta tion. The patient is right handed, so the placement would be on the left si de. The risks and benefits of the planned procedures were discussed in detail with the patient and he is willing to proceed. Rest as per orders. Dictated By: Lora Quezada MD WT: HP:ANGELO/JOSIE/JERRI Conf#: [id number]/DID#: [id number] Authenticated and Edited by Lora Quezada MD On 11/27/21 4:38:25 PM at 0440 PATIENT NAME: RENETTA FERNANDEZ 2538
[2022-12-22] MEDS ORDERED: ONDANSETRON 4 MG (ODT) TAB PO PRN (14:00)
[2022-12-22] MEDS ORDERED: ACETAMINOPHEN 500 MG TAB PO PRN (14:01)
[2022-12-22 14:22] VITALS: BMI 31.3
[2022-12-22] MEDS ORDERED: DOCUSATE NA/SENNA CONC 1 TAB PO PRN (19:50)
--- NOTE | 2022-12-22 20:38 | HP ---
Date of Admission: 12/22/2022 Time Of Service: 1:15 p.m. Chief Complaint: "I fell and broke my left hip." History Of Present Illness: Mr. Fernandez is an 82-year-old right-handed patient with multip le medical problems including atrial fibrillation, sick sinus syndrome, status post pacemaker, dyslip idemia, benign prostatic hypertrophy, chronic lymphocytic leukemia, currently on no chemotherapy, who was independent, ambulating with a cane or rolling walker for long distances when he fell after miguel ng up at night. He was disoriented, tripped and fell landing on his left side and hitting the left h ip and head. No significant head injury resulted. However, at [facility], he was evaluated and fou nd to have a left committed and impacted intertrochanteric fracture. Again, head trauma was ruled ou t by imaging. He was treated surgically with intramedullary kali nailing. His hospital course was co mplicated by pain and a touchdown weightbearing status requiring maximum assistance for his transfers , mobilization, and his activities of daily living. He had significant abnormalities in labs includi ng severe anemia and hemoglobin of 8 and platelets decreased to 70, low albumin and protein level, an d low blood pressure systolic in the 90s. Due to his significant decline in functioning from baselin e and multiple medical problems requiring daily medical evaluation and intervention and his maximum l evel of requirement for many ordinary activities, he is determined to be a more appropriate candidate for inpatient rehabilitation versus admission to a lower level facility such as a [facility]. Past Medical History: Sick sinus syndrome, atrial fibrillation, dyslipidemia, hypertension, benign p rostatic hypertrophy. Past Surgical History: Status post pacemaker and the left intramedullary kali nailing. Imaging: Chest x-ray showed no active pulmonary issues. CT scan of the head shows no acute intracra nial findings. While hospitalized in [place], he was seen by Cardiology Service, Hospitalist Service and had physical therapy and occupational therapy evaluation. Allergies: NO KNOWN DRUG ALLERGIES. Medications: Extra Strength Tylenol 500 mg every 4 hours as needed, Occidental 5/325 every 4 hours, cefdi chad 300 mg twice daily, Vibramycin 100 mg twice daily, ferrous sulfate 325 mg daily, gabapentin 300 m g daily, lidocaine patch apply topically daily. Please note, his white blood cell count has been daisy vated up to 36,000. He is on multiple antibiotics as listed. Medications include magnesium oxide 40 0 mg twice daily, melatonin 3 mg at bedtime, Hemocyte-Plus 1 tablet at daily, pramipexole 0.5 mg at b edtime for restless leg symptoms, Xarelto 20 mg daily, Senokot-S 2 tabs at bedtime, Flomax 0.4 mg heydi ly. Family History: Noncontributory. Review of Systems: Mr. Fernandez has had some difficulty with restless leg symptoms. His notes at night it is very d ifficult for him to sleep because of restless legs. Also, he has had constipation likely related to narcotic medications and activity and has poor hydration over the last 2-3 days. His notes he w as not mobilized in the last 2 days and has been bedridden, awaiting the onset of therapy. Otherwise , mild myalgias and arthralgias. No headache. No rash. No psychiatric complaints. No genitourinar y issues. No other complaints other than mentioned above. Current Functional Status: Today, he required maximum assistance with touchdown weightbearing for si t-to-stand transfers with a rolling walker, minimum assistance with a tall bed height. He did multip le sit to stand at the edge of bed, but still needed maximum assistance. He ambulated 13 feet with a rolling walker with touchdown weightbearing and maximum assistance. He self propelled a wheelchair 50 feet with maximum assistance. With his occupational therapy, bathing was at minimum assistance tw ice and 10 of 10 body parts. Moderate assistance to move bilateral lower extremities off the bed. Oh nimum assist with stand pivot and maximum verbal cues required for motor planning and maintaining joe chdown weightbearing status. Rehabilitation And Medical Assessment And Plan: Mr. Fernandez is an 82-year-old patient with rehabilit atrandolph health impairment category 07 orthopedic lower extremity fracture. His impairment group code is 08.11 status post unilateral hip fracture. His etiologic diagnosis is a committed left femoral intertroch anteric fracture. His active comorbids are anemia, decreased mobility, decreased in physical functio ana, hypertension, hypotension, pain, leukemia, thrombocytopenia, and leukocytosis. Plan: 1.He will have physical and occupational and if need be speech therapy for 3.5 hours, 5 of 7 days. 2.We will continue Xarelto 20 mg daily for stroke and DVT risk reduction. 3.Mirapex 0.5 mg at night for restless legs syndrome. 4.Senokot-S 2 at bedtime for constipation. 5.Flomax for prostate hypertrophy. 6.Melatonin for insomnia. 7.Gabapentin for neuropathic pain. 8.Ferrous sulfate and Hemocyte-Plus for severe anemia. 9.Continue cefdinir 300 mg twice daily and Vibramycin 100 mg twice daily for his leukocytosis. 10.Occidental and Tylenol for severe pain. Impact Of Comorbids: He does have a touchdown weightbearing status with the left lower extremity arlene ing it somewhat difficult to improve quickly. Also, he has multiple risk factors for stroke and thos e are medicated with high doses of anticoagulation. That puts him at significant risk of bleeding, e specially if he falls. Therefore, fall precautions will be adhered to at all times with gait belt an d walker at all times including transfers. He also has significant anemia and will be on watch for t he need for blood transfusion and he has restless legs making it difficult to sleep at night that waldemar l be mitigated again by his new medication Mirapex. Rehab Specific Plan: Mr. Fernandez will have physical and occupational and if need be speech therapy f or 3.5 hours, 5 of 7 days to improve his gait coordination, balance, transfers, upper and lower body dressing, toileting, showering, and ambulating at least household distances of 50 feet with supervisi on to modified independent. He has 1 threshold to get in his house on a tub bench and will be workin g on a tub transfer bench and going up and down the curb and a threshold 4 inches. Mr. Fernandez has a good understanding of the process of his admission to the inpatient rehabilitation unit. He has a potential to make good improvement requiring at least physical and occupational thera py. If need be services such as the Orthopedic Service, Pulmonary Service, Wound Care Service and Ca rdiology Service will be requested. Given his complex medical condition and risk of further complica tions, rehabilitation cannot be safely or effectively provided at a lower level of care such as a [facility] [place] [facility]. Barriers To Discharge: At this point, his touchdown weightbearing status does limit the ability of h im to ambulate well. He will have strength in his upper extremities, but that will be worked on and also atrial fibrillation is with him at risk for bleeding and that will be carefully addressed as he again will have a gait belt, walker and fall precautions at all times. Estimated Length Of Stay: 14 days. Disposition: Home with family. Prognosis: Good. Rehabilitation Goals: 1.To be able to dress upper and lower body with supervision. 2.Transfer from bed to toilet, to the shower and tub transfer with supervision. 3.Ambulate 50 feet with supervision to modified independence. 4.Up and down a curb with supervision to modified independence. 5.Perform cognitive functioning with modified independence. I have personally performed a full physical examination on Mr. Fernandez, no later than 24 hours after his admission to the inpatient rehabilitation unit and determined that he is able to perform the stat ed tasks above at an intensive level and for a reasonable period of time. A detailed individualized plan of care for him will be completed by hospital day 4 based on the preadmission screen, history an d physical, and therapy evaluations. LEWIS Voice ID: [id number]
[2022-12-22] MEDS: CEFDINIR 300 MG CAP PO SCH (21:00)
[2022-12-22] MEDS: GABAPENTIN 300 MG CAP PO SCH (21:00)
[2022-12-22] MEDS: MELATONIN 3 MG TABLET PO PRN (21:00)
[2022-12-22] MEDS: MAGNESIUM OXIDE 400 MG TAB PO SCH (21:00)
[2022-12-22] MEDS: HYDROCODONE/APAP 5/325 MG TAB PO PRN (21:00)
[2022-12-22] MEDS: DOXYCYCLINE 100 MG CAP PO SCH (21:00)
[2022-12-22] MEDS: PRAMIPEXOLE 0.25 MG TAB PO SCH (21:00)
[2022-12-23 01:02] LABS: Urine Bacteria None Seen /HPF (<20); Urine Bilirubin NEGATIVE (Negative); Urine Blood Negative (Negative); Urine Clarity Clear (Clear); Urine Color Yellow (Yellow); Urine Glucose NEGATIVE (Negative); Urine Mucus Slight /HPF (None Seen); Urine Protein NEGATIVE (Negative); Urine RBC None Seen /HPF (None Seen); Urine Urobilinogen 1+ (Normal); Urine pH 6.5 (5.0-7.0)
[2022-12-23] MEDS: HYDROCODONE/APAP 5/325 MG TAB PO PRN ×2 (04:21→07:37)
[2022-12-23 04:37] LABS: Absolute Lymphocytes (CBC) 40.5 K/uL (0.7-4.9); Hematocrit 26.6 % (39.6-49.0); Lymphocytes % 89.7 % (15.3-44.8); MCV 96.4 fL (80-100); RBC Red Blood Cell Count 2.76 M/uL (4.33-5.43)
[2022-12-23 04:40] LABS: Albumin 2.8 g/dL (3.4-5.0); Potassium 3.9 mEq/L (3.5-5.1)
[2022-12-23 05:16] LABS: Smudge Cells 38
[2022-12-23 05:17] LABS: Anisocytosis SLIGHT; Blood Morphology Comment NOTED (NOT SEEN); Platelet Estimate ADEQ
[2022-12-23] MEDS: FERROUS SULFATE 325 MG TAB PO SCH (07:41)
[2022-12-23] MEDS: MAGNESIUM OXIDE 400 MG TAB PO SCH ×2 (07:41→20:25)
[2022-12-23] MEDS: TAMSULOSIN 0.4 MG SR CAP PO SCH (07:41)
[2022-12-23] MEDS: RIVAROXABAN 20 MG TABLET PO SCH (07:41)
[2022-12-23] MEDS: CEFDINIR 300 MG CAP PO SCH ×2 (07:41→20:25)
[2022-12-23] MEDS: DOXYCYCLINE 100 MG CAP PO SCH ×2 (07:42→20:26)
[2022-12-23] MEDS: FE SULF/FA/VIT B COMP & C TAB PO SCH (07:42)
[2022-12-23] MEDS: CRANBERRY FRUIT EXTRACT 200 MG CAP PO SCH ×2 (07:42→20:25)
[2022-12-23] MEDS: LIDOCAINE 4% PATCH TOP SCH (10:21)
[2022-12-23] MEDS: PRAMIPEXOLE 0.25 MG TAB PO SCH (20:26)
[2022-12-23] MEDS: GABAPENTIN 300 MG CAP PO SCH (20:26)
--- NOTE | 2022-12-23 22:19 | PN ---
Date of Progress Note: 12/23/2022 [facility] Progress Note Visit Time Of Service: 1 p.m. Subjective: Mr. Fernandez is resting in bed. He reports some soreness and pain up to 7/10 at the left hip surgical site, especially after he did his therapy today. Otherwise, no other complaints or con cerns. Review of Systems: No fevers or chills. Some mild myalgias and arthralgias as noted. No rash. No headache. No psychi atric issues. No gastrointestinal or genitourinary complaints. Physical Examination: Vital Signs: Blood pressure 102/47, pulse 82, respiratory rate 16, temperature 97.3, and oxygen satu ration 97%. Weight 211 pounds, height 5 feet 9 inches, BMI 31. General: Mr. Fernandez is resting comfortably. No significant distress. HEENT: Normocephalic, atraumatic. Sclerae anicteric. Oropharynx pink and moist. Neck: Supple. Chest: Clear. Lower Extremities: No significant edema despite his left hip fracture, just mild expected postsurgic al edema. Good hemostasis at the surgical site. Laboratory Studies: His white blood cell count is 45.1 with lymphocytes 89.7%, consistent with his l eukemia. Hemoglobin is 8.7 and platelets 114. His prealbumin is low at 11. Creatinine 0.68, calciu m 8.2, magnesium 2.0, glucose 138. Urinalysis shows 75 esterase, 1+ urobilinogen, otherwise negative . X-ray/imaging: None. Medications: Tylenol 500 mg every 4 hours as needed, Cypress 5/325 every 4 hours as needed, cefdinir 3 00 mg twice daily, Vibramycin 100 mg twice daily, ferrous sulfate 325 mg daily, gabapentin 300 mg at bedtime, lidocaine 1 patch 4% patch daily, magnesium oxide 400 mg twice daily, melatonin 3 at bedtime , Flomax 0.4 mg daily, Senokot-S 2 at bedtime, Xarelto 20 mg daily, Mirapex 0.5 mg at night for restl ess legs, Zofran 4 mg every 4 hours for nausea, and Hemocyte Plus 1 tablet daily. Current Functional Status: Mr. Fernandez was able to perform multiple transfers from wheelchair to bed with maximum assistance at touchdown weightbearing status. He ambulated 15 feet twice with a marshall g walker with touchdown weightbearing status. He did require maximum assistance for lifting his legs . With occupational therapy, moderate assistance to move bilateral lower extremities off the bed and to hold on to his hands to be pulled to a sitting position. He was independent with upper body dres sing, minimal assistance with lower body dressing. Grooming was independent. He did self propel a w heelchair twice covering 500 feet. He did require 2 rest breaks. Progress Towards Rehabilitation Goals: Mr. Fernandez is beginning to make good progress so far, althou gh he has touchdown weightbearing status with the left lower extremity and that is somewhat limiting, but again his mobilization transfers and mobilization with a wheelchair especially is doing well, mu ch less so but still coming along with the walker. Assessment: Mr. Fernandez is an 82-year-old patient in the rehabilitation unit with a left hip fractur e status post surgical repair. He has active anemia, leukocytosis, leukemia, thrombocytopenia, hyper tension, and prostate hypertrophy and is on 2 antibiotics. Plan: 1.Continue physical and occupational therapy for 3 hours a day, 5 of 7 days. 2.Continue Xarelto for stroke and DVT risk reduction. 3.Continue Mirapex for restless legs syndrome. 4.Continue Senokot for constipation. 5.Flomax for prostate hypertrophy. 6.Gabapentin for neuropathic pain. 7.Ferrous sulfate and Hemocyte Plus for anemia. 8.Cypress and Tylenol for pain related to his surgery. Comorbids That Are Continuing To Impact Rehabilitation Process: He does have touchdown weightbearing status with left lower extremity and has some weakness in the upper extremities, which is making it mildly difficult for him to do well. In addition, he has a BMI of 31, making it again slightly diffi cult as he has to lift that weight with both upper extremities as he is not able to put any more than touchdown weightbearing with the left lower extremity. Otherwise, his comorbidities are well manage dUrban LB/MODL Voice ID: [id number] Report ID: [id number]
[2022-12-24] MEDS: HYDROCODONE/APAP 5/325 MG TAB PO PRN ×3 (04:44→21:35)
[2022-12-24] MEDS: LIDOCAINE 4% PATCH TOP SCH (08:27)
[2022-12-24] MEDS: CRANBERRY FRUIT EXTRACT 200 MG CAP PO SCH ×2 (08:28→21:31)
[2022-12-24] MEDS: DOXYCYCLINE 100 MG CAP PO SCH ×2 (08:28→21:31)
[2022-12-24] MEDS: CEFDINIR 300 MG CAP PO SCH ×2 (08:28→21:31)
[2022-12-24] MEDS: FE SULF/FA/VIT B COMP & C TAB PO SCH (08:28)
[2022-12-24] MEDS: RIVAROXABAN 20 MG TABLET PO SCH (08:29)
[2022-12-24] MEDS: TAMSULOSIN 0.4 MG SR CAP PO SCH (08:29)
[2022-12-24] MEDS: FERROUS SULFATE 325 MG TAB PO SCH (08:29)
[2022-12-24] MEDS: MAGNESIUM OXIDE 400 MG TAB PO SCH ×2 (10:17→21:34)
--- NOTE | 2022-12-24 13:54 | P.RH.PN ---
Estimated Length of Stay: 12 Expected Discharge Date: 12/31/22 Discharge Disposition Plan: Home Family Support: Yes Half-Way Goal: Mobility, Transfers, Self Care Vital Signs: Last Vital Signs Temp 97.2 F 12/24/22 07:20 Pulse 61 12/24/22 07:20 Resp 17 12/24/22 09:28 BP 119/59 L 12/24/22 07:20 Pulse Ox 98 12/24/22 09:28 Laboratory: Laboratory Last Values WBC 45.10 thou/uL (4.3-10.9) H 12/23/22 03:55 RBC 2.76 M/uL (4.33-5.43) L 12/23/22 03:55 Hgb 8.7 g/dL (13.6-17.9) L 12/23/22 03:55 Hct 26.6 % (39.6-49.0) L 12/23/22 03:55 MCV 96.4 fL (80-100) 12/23/22 03:55 MCH 31.5 pg (27.0-35.0) 12/23/22 03:55 MCHC 32.7 g/dL (32.0-36.0) 12/23/22 03:55 RDW 14.5 % (12.1-15.2) 12/23/22 03:55 Plt Count 114 thou/uL (152-406) L 12/23/22 03:55 MPV 9.0 fL (7.6-11.3) 12/23/22 03:55 Neutrophils % 7.7 % (41.7-73.7) L 12/23/22 03:55 Lymphocytes % 89.7 % (15.3-44.8) H 12/23/22 03:55 Monocytes % 1.9 % (3.3-12.3) L 12/23/22 03:55 Eosinophils % 0.6 % (0-4.4) 12/23/22 03:55 Basophils % 0.1 % (0-1.3) 12/23/22 03:55 Absolute Neutrophils 3.5 K/uL (1.8-8.0) 12/23/22 03:55 Segmented Neutrophils 10 % (40-80) L 12/23/22 03:55 Absolute Lymphocytes 40.5 K/uL (0.7-4.9) H 12/23/22 03:55 Lymphocytes 89 % (15-42) H 12/23/22 03:55 Monocytes 0 % (0-10) 12/23/22 03:55 Absolute Monocytes 0.9 K/uL (0.1-1.3) 12/23/22 03:55 Eosinophils 1 % (0-3) 12/23/22 03:55 Absolute Eosinophils 0.3 K/uL (0-0.5) 12/23/22 03:55 Absolute Basophils 0.0 K/uL (0-0.5) 12/23/22 03:55 Smudge Cells 38 12/23/22 03:55 Platelet Estimate Adeq 12/23/22 03:55 Anisocytosis Slight 12/23/22 03:55 Morphology Comment Noted (NOT SEEN) 12/23/22 03:55 Sodium 136 mEq/L (136-145) 12/23/22 03:55 Potassium 3.9 mEq/L (3.5-5.1) 12/23/22 03:55 Chloride 104 mEq/L (98-107) 12/23/22 03:55 Carbon Dioxide 29 mEq/L (21-32) 12/23/22 03:55 Anion Gap 6.9 mEq/L (5.0-15.0) 12/23/22 03:55 BUN 17 mg/dL (7-18) 12/23/22 03:55 Creatinine 0.68 mg/dL (0.70-1.30) L 12/23/22 03:55 Est GFR (CKD-EPI) 93 ml/min (=/>90) 12/23/22 03:55 Glucose 138 mg/dL (74-106) H 12/23/22 03:55 Calcium 8.2 mg/dL (8.5-10.1) L 12/23/22 03:55 Magnesium 2.0 mg/dL (1.6-2.4) 12/23/22 03:55 Albumin 2.8 g/dL (3.4-5.0) L 12/23/22 03:55 Prealbumin 11.0 mg/dL (20-40) L 12/23/22 03:55 Urine Color Yellow (Yellow) 12/22/22 21:26 Urine Clarity Clear (Clear) 12/22/22 21:26 Urine pH 6.5 (5.0-7.0) 12/22/22 21: Ur Specific [place] 1.020 (1.005-1.030) 12/22/22 21: Glucose (UA)(Auto) Negative (Negative) 12/22/22 21: Urine Ketones Negative (Negative) 12/22/22 21: Urine Blood Negative (Negative) 12/22/22 21: Urine Nitrite Negative (Negative) 12/22/22 21: Urine Bilirubin Negative (Negative) 12/22/22 21: Urine Urobilinogen 1+ (Normal) H 12/22/22 21: Ur Leukocyte Esterase 75 Camelia/uL (Negative) H 12/22/22 21: Urine RBC None seen /HPF (None Seen) 12/22/22 21: Urine WBC <5 /HPF (<5) 12/22/22 21: Ur Squamous Epith Cells None seen /HPF (None Seen) 12/22/22 21: U Non-Squamous Epi Cells <5 /HPF (None Seen) 12/22/22 21: Urine Bacteria None seen /HPF (<20) 12/22/22 21: Urine Mucus Slight /HPF (None Seen) 12/22/22 21: Urine Culture Reflexed Not needed 12/22/22 21: Urine Total Protein Negative (Negative) 12/22/22 21:26 Weight: 211 lb 14.4 oz Wound Present: No Closed Surgical Incision Present: Yes Negative Pressure Wound Therapy Present: No Physician Update: 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 Poor hearing with hearing aids. Making fair progress. 15' walking with moderate assistance using a rolling walker and TDWB. Summary: Patient's care plan and equipment operator intermodal yard goals have been reviewed and revised as necessary. Please see the Rehabilitation Signature page for all necessary signatures.
[2022-12-24] MEDS ORDERED: PRAMIPEXOLE 1 MG TAB PO SCH (21:00)
[2022-12-24] MEDS: GABAPENTIN 300 MG CAP PO SCH (21:31)
[2022-12-24] MEDS: MELATONIN 3 MG TABLET PO PRN (21:35)
[2022-12-24] MEDS: ENSURE ENLIVE 237 ML CAN PO SCH (21:35)
[2022-12-25] MEDS: LIDOCAINE 4% PATCH TOP SCH (08:24)
[2022-12-25] MEDS: RIVAROXABAN 20 MG TABLET PO SCH (08:25)
[2022-12-25] MEDS: CEFDINIR 300 MG CAP PO SCH ×2 (08:25→20:59)
[2022-12-25] MEDS: FE SULF/FA/VIT B COMP & C TAB PO SCH (08:25)
[2022-12-25] MEDS: MAGNESIUM OXIDE 400 MG TAB PO SCH ×2 (08:25→20:59)
[2022-12-25] MEDS: DOXYCYCLINE 100 MG CAP PO SCH ×2 (08:25→20:59)
[2022-12-25] MEDS: FERROUS SULFATE 325 MG TAB PO SCH (08:25)
[2022-12-25] MEDS: TAMSULOSIN 0.4 MG SR CAP PO SCH (08:26)
[2022-12-25] MEDS: CRANBERRY FRUIT EXTRACT 200 MG CAP PO SCH ×2 (08:26→20:59)
[2022-12-25] MEDS: HYDROCODONE/APAP 5/325 MG TAB PO PRN ×3 (08:26→21:19)
[2022-12-25] MEDS: ENSURE ENLIVE 237 ML CAN PO SCH ×2 (08:27→20:59)
--- NOTE | 2022-12-25 16:49 | RAD REPORT ---
EXAM DESCRIPTION: USExtremity Venous [facility] Ltd12/25/2022 4:03 pm CLINICAL HISTORY: left leg pain COMPARISON: None FINDINGS: Left common femoral, superficial femoral, greater saphenous, popliteal and posterior tibi al veins are compressible and demonstrate augmentation. Doppler demonstrates good flow. Grayscale, color and spectral analysis performed on all vessels 5 x 1 centimeter Bashir's cyst IMPRESSION: No evidence of deep venous thrombosis involving the left lower extremity. 5 x 1 centimeter Bashir's cyst
[2022-12-25] MEDS: MELATONIN 3 MG TABLET PO PRN (20:59)
[2022-12-25] MEDS: GABAPENTIN 300 MG CAP PO SCH (20:59)
[2022-12-26] MEDS: LIDOCAINE 4% PATCH TOP SCH (07:51)
[2022-12-26] MEDS: RIVAROXABAN 20 MG TABLET PO SCH (07:52)
[2022-12-26] MEDS: CRANBERRY FRUIT EXTRACT 200 MG CAP PO SCH ×2 (07:52→19:28)
[2022-12-26] MEDS: MAGNESIUM OXIDE 400 MG TAB PO SCH ×2 (07:52→19:28)
[2022-12-26] MEDS: TAMSULOSIN 0.4 MG SR CAP PO SCH (07:52)
[2022-12-26] MEDS: CEFDINIR 300 MG CAP PO SCH ×2 (07:52→19:28)
[2022-12-26] MEDS: FERROUS SULFATE 325 MG TAB PO SCH (07:52)
[2022-12-26] MEDS: DOXYCYCLINE 100 MG CAP PO SCH ×2 (07:52→19:28)
[2022-12-26] MEDS: FE SULF/FA/VIT B COMP & C TAB PO SCH (07:52)
[2022-12-26] MEDS: ENSURE ENLIVE 237 ML CAN PO SCH ×2 (07:53→19:28)
[2022-12-26] MEDS: HYDROCODONE/APAP 5/325 MG TAB PO PRN ×3 (07:53→19:29)
[2022-12-26] MEDS: GABAPENTIN 300 MG CAP PO SCH (19:29)
[2022-12-27] MEDS: HYDROCODONE/APAP 5/325 MG TAB PO PRN ×4 (04:14→20:18)
[2022-12-27] MEDS: CRANBERRY FRUIT EXTRACT 200 MG CAP PO SCH ×2 (07:17→20:14)
[2022-12-27] MEDS: FERROUS SULFATE 325 MG TAB PO SCH (07:17)
[2022-12-27] MEDS: RIVAROXABAN 20 MG TABLET PO SCH (07:17)
[2022-12-27] MEDS: ENSURE ENLIVE 237 ML CAN PO SCH ×2 (07:17→20:15)
[2022-12-27] MEDS: FE SULF/FA/VIT B COMP & C TAB PO SCH (07:18)
[2022-12-27] MEDS: CEFDINIR 300 MG CAP PO SCH ×2 (07:18→20:14)
[2022-12-27] MEDS: TAMSULOSIN 0.4 MG SR CAP PO SCH (07:18)
[2022-12-27] MEDS: MAGNESIUM OXIDE 400 MG TAB PO SCH ×2 (07:18→20:14)
[2022-12-27] MEDS: DOXYCYCLINE 100 MG CAP PO SCH ×2 (07:18→20:15)
[2022-12-27] MEDS: LIDOCAINE 4% PATCH TOP SCH (10:50)
[2022-12-27] MEDS: GABAPENTIN 300 MG CAP PO SCH (20:15)
[2022-12-27] MEDS: MELATONIN 3 MG TABLET PO PRN (20:18)
--- NOTE | 2022-12-27 21:55 | PN ---
Date of Progress Note: 12/27/2022 Time Of Service: 1 p.m. Subjective: Mr. Fernandez is resting in bed. Denies any significant pain. He is happy with his thera py so far and has no new complaints. Review of Systems: At the left hip surgical site, there are myalgias and arthralgias. Otherwise, no fevers, chills, pricila sea, vomiting. No rash. No psychiatric issues. No active gastrointestinal or genitourinary issues. Physical Examination: Vital Signs: Blood pressure 116/58, pulse 72, respiratory rate 16, temperature 97.2, ox saturation 9 6%. General: Mr. Fernandez is resting in bed in between therapy sessions. Lungs: Clear to auscultation. Heart: Regular. Abdomen: Soft. Extremities: No significant edema in lower extremities. Trace in the left where he has his hip frac ture and surgical site has good hemostasis. Laboratory Studies: No new laboratory studies since the . X-ray/imaging: Doppler study from 12/25 showed no evidence of deep vein thrombosis in the left lower extremity. There is a 1 x 5 cm Bashir cyst present in the left posterior knee region. Medications: His medications have not been changed and have been reviewed. He continues ferrous sul fate and Hemocyte-Plus for anemia, magnesium oxide to decrease muscle spasming and impaired relaxatio n. He has Vibramycin and cefdinir continued and Xarelto 20 mg daily for DVT and stroke risk reductio n, Flomax for urinary retention, Senokot-S for constipation, melatonin for insomnia. Current Functional Status: Today, he ambulated 75 feet 3 times, 45 feet once with a rolling walker w ith touchdown weightbearing status and contact guard assistance. He did self propel wheelchair 1 lap around the unit that is 250 feet to build endurance. Progress Towards Rehabilitation Goals: Mr. Fernandez is making fair progress towards his goals of beco khai independent with upper and lower body dressing, transferring, toileting, showering, ambulating 2 50 feet with modified independence, up and down 5 steps with modified independence, and propelling a wheelchair now 250 feet to 500 feet with modified independence. Assessment: Mr. Fernandez is an 82-year-old patient in the rehabilitation unit with left hip fracture, status post surgical repair and he is making good progress so far, overall good to fair progress. 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 There is some bleeding noted in the Mcnamara catheter and Dr. Brayan chatterjee has been contacted and he is coming back to see the patient perhaps tomorrow and the patient's Fo rogers will be kept in place and his Eliquis has been held. He is on aspirin for stroke risk and deep v ein thrombosis risk reduction. Plan: 1.Physical and occupational therapy 3 hours a day, 5 of 7 days. 2.He is on Xarelto 20 mg daily for his atrial fibrillation to reduce risk of stroke and does have so me bleeding in the Mcnamara. The dosage of 20 mg daily may be decreased to 10 mg daily at this point gi karla the significant bleeding. Again, Urology will involve to assist with management. 3.Mirapex for restless legs. 4.Senokot for constipation. 5.Flomax for prostate hypertrophy. 6.Gabapentin for neuropathic pain. 7.Continue Hemocyte-Plus and ferrous sulfate for his anemia. 8.Continue [place] and Tylenol for nkhr-oz-mojnan pain. Comorbids That Are Continuing To Impact Rehabilitation Process: He does have some blood in the Mcnamara and high dose of Xarelto. Xarelto to cut back as noted. Also, his touchdown weightbearing with the left lower extremity making it difficult for him to thrive at this point. He will have to await rel ease of his weightbearing status by the orthopedic surgeon for him to begin to improve more. In valerie tion due to elevated weight with a BMI just over 30, does have some difficulty lifting the leg and ma intaining his weightbearing status. Otherwise, he is making fair overall progress and will continue despite these barriers. LB/MODL Voice ID: [id number] Report ID: [id number]
[2022-12-28] MEDS: HYDROCODONE/APAP 5/325 MG TAB PO PRN ×4 (01:38→20:34)
[2022-12-28] MEDS: LIDOCAINE 4% PATCH TOP SCH (06:43)
[2022-12-28] MEDS: CRANBERRY FRUIT EXTRACT 200 MG CAP PO SCH ×2 (07:17→20:33)
[2022-12-28] MEDS: FERROUS SULFATE 325 MG TAB PO SCH (07:17)
[2022-12-28] MEDS: ENSURE ENLIVE 237 ML CAN PO SCH ×2 (07:17→20:34)
[2022-12-28] MEDS: RIVAROXABAN 20 MG TABLET PO SCH (07:17)
[2022-12-28] MEDS: FE SULF/FA/VIT B COMP & C TAB PO SCH (07:18)
[2022-12-28] MEDS: TAMSULOSIN 0.4 MG SR CAP PO SCH (07:18)
[2022-12-28] MEDS: DOXYCYCLINE 100 MG CAP PO SCH ×2 (07:18→20:33)
[2022-12-28] MEDS: CEFDINIR 300 MG CAP PO SCH ×2 (07:19→20:33)
[2022-12-28] MEDS: MAGNESIUM OXIDE 400 MG TAB PO SCH ×2 (07:26→20:34)
[2022-12-28] MEDS: MELATONIN 3 MG TABLET PO PRN (20:33)
[2022-12-28] MEDS: GABAPENTIN 300 MG CAP PO SCH (20:33)
[2022-12-29] MEDS: HYDROCODONE/APAP 5/325 MG TAB PO PRN ×4 (03:10→19:48)
--- NOTE | 2022-12-29 04:04 | PN ---
Date of Progress Note: 12/28/2022 Time Of Service: 01:30 p.m. Subjective: Mr. Fernandez is resting in bed, in no significant distress. Does have some complaints in terms of mild pain in the left hip, but the left hip fracture site is otherwise doing well. Review of Systems: No fevers or chills, nausea, vomiting. Mild myalgias, arthralgias in the left hip surgical site. Ot herwise, no other positives. Physical Examination: Vital Signs: Blood pressure 120/58, respiratory rate 16, temperature 97.1, oxygen saturation 99%, an d pulse 70. General: Mr. Fernandez again is resting comfortably. No focal deficits in terms of face, arm, or leg. Some swelling in the left lower extremities. Good hemostasis of the left hip fracture surgical sit e. Laboratory Studies: No new laboratory studies. X-ray Imaging: No new x-rays or imaging studies. Medications: Medications have been reviewed and remained unchanged. Current Functional Status: Currently, Mr. Fernandez is able to ambulate 80 feet 3 times and 55 feet on ce with a rolling walker with touchdown weightbearing and contact guard assistance. He ascended and descended 3 steps with minimum assistance. With occupational therapy, independent with toileting, lo wer body dressing independent, grooming and footwear independent. He did self propel a wheelchair 25 0 feet with supervision. Progress Towards Rehabilitation Goals: Mr. Fernandez is making excellent progress overall towards goal s of becoming independent with upper and lower body dressing, transferring, toileting, ambulating 250 feet with modified independence, up and down 10 steps with modified independence. Assessment: Mr. Fernandez is an 82-year-old patient with left hip fracture status post surgical repair , was making good progress overall with physical, occupational, and speech therapy. He has anemia, l eukocytosis from leukemia, thrombocytopenia, hypertension, prostate hypertrophy, and he does have brenda e ongoing bleeding from his Mcnamara catheter. His Eliquis has been held and he is seen by Dr. Wise and Urology Service. Plan: 1.Continue with physical, occupational, and speech therapy. 2.He is on Xarelto 20 mg daily for his atrial fibrillation that is likely a contributing factor to t he blood in the urine and Dr. Wise will be following the patient on outpatient basis. Also, gabap entin for neuropathic pain, Flomax for his prostate hypertrophy, Mirapex for restless legs, Senokot a gain for constipation, [place] and Tylenol for pain. Comorbidities That Continue To Impact Rehabilitation Process: His Xarelto which is ongoing is possib ly a contributing factor that is followed by the Urology Service and also he does have a touchdown we ightbearing status and we will have to follow up with his orthopedic surgeon to be released in terms of his weightbearing status as he heals. LILA/LUCIEN Voice ID: [id number] Report ID: [id number]
[2022-12-29] MEDS: LIDOCAINE 4% PATCH TOP SCH (08:17)
[2022-12-29] MEDS: TAMSULOSIN 0.4 MG SR CAP PO SCH (08:18)
[2022-12-29] MEDS: FE SULF/FA/VIT B COMP & C TAB PO SCH (08:18)
[2022-12-29] MEDS: FERROUS SULFATE 325 MG TAB PO SCH (08:18)
[2022-12-29] MEDS: DOXYCYCLINE 100 MG CAP PO SCH (08:18)
[2022-12-29] MEDS: CEFDINIR 300 MG CAP PO SCH (08:18)
[2022-12-29] MEDS: CRANBERRY FRUIT EXTRACT 200 MG CAP PO SCH ×2 (08:18→19:48)
[2022-12-29] MEDS: RIVAROXABAN 20 MG TABLET PO SCH (08:19)
[2022-12-29] MEDS: MAGNESIUM OXIDE 400 MG TAB PO SCH ×2 (09:32→19:49)
[2022-12-29] MEDS: ENSURE ENLIVE 237 ML CAN PO SCH ×2 (09:37→19:49)
[2022-12-29] MEDS: GABAPENTIN 300 MG CAP PO SCH (19:49)
[2022-12-29] MEDS: MELATONIN 3 MG TABLET PO PRN (19:49)
--- NOTE | 2022-12-29 23:08 | PN ---
Date of Progress Note: 12/29/2022 Time Of Service: 1:30 p.m. Subjective: Mr. Fernandez is resting in bed, actually in a wheelchair beside his bed. He is in no acu te distress. Does not have any new complaints. He does have some more swelling in the left lower ex tremity where he has left hip fracture and has had surgical repair. Did have a question about when t he hi will be removed. Further, he had a question about needing a wheelchair to go home and was told that he actually would require that. He does have a touchdown weightbearing status and has to take multiple rest breaks to cover a 250 feet distance and is unable to maintain a standing position for more than a few minutes. He would therefore at home require a wheelchair to safely mobilize over several hours as he is by himself during the day. Review of Systems: Mild myalgias, arthralgias in the left lower extremity where he has his hip fracture. There is a swe lling that is ongoing, but it has improved slightly. Otherwise, no positives on the systems review. Physical Examination: Vital Signs: Blood pressure 126/53, pulse 66, respiratory rate 18, temperature 98.2, oxygent saturat ion 98%. General: Mr. Fernandez is sitting in a chair beside his bed. Extremities: He does have mild to moderate swelling in the left lower extremity where there is edema following his surgery. He has good hemostasis at the surgical site. He is able to move and rotate the left leg much better and extend and bend his left knee much better as the swelling is improving. Laboratory Studies: No new laboratory studies. X-ray/imaging: No new x-rays or imaging. Medications: Medications have not been changed since last note yesterday. Current Functional Status: Today, he did multiple transfers from wheelchair to bed independently wit h touchdown weightbearing. He is compliant with weightbearing status. Sit to supine transfers with standby assistance. Supine to sit on the edge of bed with standby assistance. He ambulated 125 feet once, another 100 feet twice, and 75 feet once with a rolling walker with touchdown weightbearing an d standby assistance. With occupational therapy, ADLs were done independent with toileting, bathing, upper and lower body dressing, and footwear. Progress Towards Rehabilitation Goals: Mr. Fernandez is making great progress towards rehabilitation g oals of becoming independent with activities of daily living as noted above. However, he is limited by a touchdown weightbearing status in the left lower extremity and does have some decreased enduranc e requiring him to sit after ambulating about 125 feet. In addition, he is not able to stand for any prolonged periods due to his inability to maintain weight just on his right lower extremity. Assessment: Mr. Fernandez is an 82-year-old patient in a rehabilitation unit with left hip fracture st atus post surgical repair. He does have fatigue and intolerance of standing for any extended period. He has leukocytosis related to leukemia and has thrombocytopenia as well. He has hypertension, pro state hypertrophy. Plan: 1.He will continue physical, occupational, and speech therapy. 2.His anticoagulation is Xarelto 20 mg daily. He does have Flomax for urinary retention, melatonin 3 at night for insomnia, gabapentin 300 mg at bedtime, ferrous sulfate 325 mg daily, [place] 5/325 ever y 4 hours as needed. Plan: 1.He will continue with physical, occupational, and speech therapy as noted. 2.Medications will be continued as noted above. 3.Due to the patient's inability to tolerate standing for more than a few minutes and only short dis tances he can ambulate before he has to sit, he is unable to mobilize well at home and would be best served with a wheelchair at home. He is doing his activities of daily living very well. Comorbidities That Are Continuing To Impact Rehabilitation Process: Currently, he does have signific ant swelling in the left lower extremity and has the inability to maintain an upright position for an extended period and therefore would require a wheelchair as he is discharged home and that is actuall y planned. LB/MODL Voice ID: [id number] Report ID: [id number]
[2022-12-30] MEDS: HYDROCODONE/APAP 5/325 MG TAB PO PRN ×2 (02:01→08:31)
[2022-12-30 07:23] VITALS: BP 111/50; TEMP 97.4
--- NOTE | 2022-12-30 07:46 | RAD REPORT ---
EXAM DESCRIPTION: RAD - Femur Left - 12/30/2022 7:29 am CLINICAL HISTORY: pain Pain and swelling. COMPARISON: <Comparisons> FINDINGS: Intramedullary kali is noted within the femur. Intratrochanteric fracture is present proxim al left femur with fracture lucency noted. Skin hi are present laterally. Mild atherosclerosis. IMPRESSION: No unexpected postoperative finding.
[2022-12-30] MEDS: ENSURE ENLIVE 237 ML CAN PO SCH (08:00)
[2022-12-30] MEDS: LIDOCAINE 4% PATCH TOP SCH (08:30)
[2022-12-30] MEDS: TAMSULOSIN 0.4 MG SR CAP PO SCH (08:31)
[2022-12-30] MEDS: CRANBERRY FRUIT EXTRACT 200 MG CAP PO SCH (08:31)
[2022-12-30] MEDS: FE SULF/FA/VIT B COMP & C TAB PO SCH (08:31)
[2022-12-30] MEDS: FERROUS SULFATE 325 MG TAB PO SCH (08:31)
[2022-12-30] MEDS: RIVAROXABAN 20 MG TABLET PO SCH (08:31)
[2022-12-30] MEDS: MAGNESIUM OXIDE 400 MG TAB PO SCH (08:31)
== END 2022-12-30 10:25 | disposition home health service (06) | DRG 560 ==
LOC: 5TH 12:45
PROVIDERS: ADMIT Psychiatry & Neurology Neurology with Special Qualifications in Child Neurology; ATTEND Psychiatry & Neurology Neurology with Special Qualifications in Child Neurology
DX: S72.142D Displaced intertrochanteric fracture of left femur, subsequent encounter for closed fracture with routine healing (principal); C91.10 Chronic lymphocytic leukemia of B-cell type not having achieved remission; I48.91 Unspecified atrial fibrillation; I49.5 Sick sinus syndrome; D64.9 Anemia, unspecified; M71.22 Synovial cyst of popliteal space [Baker], left knee; E78.5 Hyperlipidemia, unspecified; N40.0 Benign prostatic hyperplasia without lower urinary tract symptoms; I10 Essential (primary) hypertension; I95.9 Hypotension, unspecified; D69.6 Thrombocytopenia, unspecified; G25.81 Restless legs syndrome; K59.00 Constipation, unspecified; G47.00 Insomnia, unspecified; Z95.0 Presence of cardiac pacemaker
CPT/HCPCS: 36415; 80048; 81001; 82040; 83735; 84134; 85025; 87086; 87088; 93971; 97110; 97116; 97162; 97165; 97530; 97542; J2001